=== PATIENT | male | born 1985 | race Caucasian/White ===

== ENCOUNTER 2016-07-14 18:06 | Inpatient (IN) | payer SELFPAY ==
[~2016-07-14] VITALS: Ht 182.9 cm; Wt 63.8 kg
[2016-07-14] VITALS (9 sets, daily range): BP systolic 99–141; BP diastolic 56–80; PULSE 64–106; RESP 14–18; TEMP 98.4; O2SAT 94–100
[~2016-07-14 18:06] MED LIST: BACT800T5 PO; CEPH500C3 PO
[2016-07-14] MEDS ORDERED: SODIUM CHLOR 0.9% 1000 ML INJ 1,000 ML IV ONE ×2 (18:12→18:45)
[2016-07-14] MEDS ORDERED: SODIUM CHLORIDE 0.9% FLUSH 5 ML FLUSH IVF PRN (18:15)
[2016-07-14] MEDS ORDERED: LORazepam 2 MG/ML VIAL ONE ×2 (18:19→18:22)
[2016-07-14] MEDS ORDERED: LORazepam 2 MG/ML VIAL IV PUSH ONE ×2 (18:30→19:15)
--- NOTE | 2016-07-14 18:34 | PD ---
HPI Chief Complaint: seizure Time Seen by Provider: 18:12 Travel History International Travel<30 days: No Contact w/Intl Traveler<30days: No History of Present Illness HPI Patient is a 30-year-old male who presents to emergency room with complaints of new onset seizure. As per EMS, patient was driving his car home from work, reports that he was in the car with his brother who was in the passenger seat. Reports that all of a sudden, patient became unresponsive and had a tonic- clonic seizure. Reports that his whole body stiffened up and symptoms lasted for about a minute. Patients brother was able to pull car over, there was no MVC after seizure. Patient denies history of seizures in the past. Patient reports that he works 16 hours days and drinks alot of energy drinks. Reports that he had 2 energy drinks today. No incontinence of urine during seizure. Denies use of drugs/alcohol. Denies brain injury. PFSH Past Medical History Medical History: Denies Significant Hx Past Surgical History Surgical History: No Previous Surgery Social History Alcohol Use: No Tobacco Use: Yes (1 PPD) Allergies-Medications (Allergen,Severity, Reaction): Coded Allergies: Penicillin (Verified Allergy, Mild, 07/14/16) *MDRO Multi-Drug Resistant Organism (Unverified Allergy, Unknown, 07/14/16) MRSA 2013 Reported Meds & Prescriptions Reported Meds & Active Scripts Active No Active Prescriptions or Reported Medications Review of Systems General / Constitutional: No: Fever Eyes: No: Visual changes HENT: No: Headaches Cardiovascular: No: Chest Pain or Discomfort Respiratory: No: Shortness of Breath Gastrointestinal: No: Abdominal Pain Genitourinary: No: Dysuria Musculoskeletal: No: Pain Skin: No Rash Neurologic: Positive: Seizures, No: Weakness Psychiatric: No: Depression Endocrine: No: Polydipsia Hematologic/Lymphatic: No: Easy Bruising Physical Exam Narrative GENERAL: nad SKIN: Warm and dry. HEAD: Atraumatic. Normocephalic. EYES: Pupils equal and round. No scleral icterus. No injection or drainage. ENT: No nasal bleeding or discharge. Mucous membranes pink and moist. NECK: Trachea midline. No JVD. CARDIOVASCULAR: Regular rate and rhythm. No murmur appreciated. RESPIRATORY: No accessory muscle use. Clear to auscultation. Breath sounds equal bilaterally. GASTROINTESTINAL: Abdomen soft, non-tender, nondistended. Hepatic and splenic margins not palpable. MUSCULOSKELETAL: No obvious deformities. No clubbing. No cyanosis. No edema. NEUROLOGICAL: Awake and alert. No obvious cranial nerve deficits. Motor grossly within normal limits. Normal speech. Cranial nerves to 12 grossly intact with no obvious deficits PSYCHIATRIC: Appropriate mood and affect; insight and judgment normal. Data Data Last Documented VS Vital Signs Date Time Temp Pulse Resp B/P Pulse Ox O2 Delivery O2 Flow Rate FiO2 07/14/16 20:13 85 16 112/63 94 Room Air 07/14/16 18:12 98.4 Orders Electrocardiogram (07/14/16 ) Complete Blood Count With Diff (07/14/16 18:12) Blood Glucose (07/14/16 18:12) Ecg Monitoring (07/14/16 18:12) Iv Access Insert/Monitor (07/14/16 18:12) Oximetry (07/14/16 18:12) Comprehensive Metabolic Panel (07/14/16 18:12) Sodium Chlor 0.9% 1000 Ml Inj (Ns 1000 M (07/14/16 18:12) Sodium Chloride 0.9% Flush (Ns Flush) (07/14/16 18:15) Ua Includes Microscopic (07/14/16 18:12) Drug Screen, Random Urine (07/14/16 18:12) Creatine Kinase (Cpk) (07/14/16 18:16) Lorazepam Inj (Ativan Inj) (07/14/16 18:19) Lorazepam Inj (Ativan Inj) (07/14/16 18:22) Ct Brain W/O Iv Contrast(Rout) (07/14/16 18:26) Lorazepam Inj (Ativan Inj) (07/14/16 18:30) Levetiracetam 1000 Mg Inj (Keppra 1000 M (07/14/16 18:45) Sodium Chlor 0.9% 1000 Ml Inj (Ns 1000 M (07/14/16 18:45) Lorazepam Inj (Ativan Inj) (07/14/16 19:15) Fosphenytoin Inj (Cerebyx Inj) (07/14/16 19:30) Dexamethasone Inj (Decadron Inj) (07/14/16 19:15) Admit To Inpatient (07/14/16 ) Code Status (07/14/16 19:27) Vital Signs (Adult) Q4H (2/8/17 19:27) Intake + Output 06,14,22 (07/14/16 19:27) Sodium Chlor 0.9% 1000 Ml Inj (Ns 1000 M (07/14/16 20:00) Sodium Chloride 0.9% Flush (Ns Flush) (07/14/16 21:00) Sodium Chloride 0.9% Flush (Ns Flush) (07/14/16 19:30) Pantoprazole Inj (Protonix Inj) (07/15/16 09:00) Basic Metabolic Panel (Bmp) (07/14/16 19:27) Prothrombin Time / Inr (Pt) (07/14/16 19:27) Act Partial Throm Time (Ptt) (07/14/16 19:27) Hepatic Functional Panel (07/14/16 19:27) Dimension Specification Inspector / Telemetry (07/14/16 19:27) Scd Bilateral/Knee High LAZARO.QSHIFT (07/14/16 19:27) Inpatient Certification (07/14/16 ) Mri Brain W&W/O Contrast (07/14/16 19:33) Phenytoin (Dilantin) (07/15/16 06:00) Basic Metabolic Panel (Bmp) (07/15/16 06:00) Magnesium (Mg) (07/15/16 06:00) Chest, Single Ap (07/14/16 ) Fosphenytoin Inj (Cerebyx Inj) (07/15/16 08:00) Dexamethasone Inj (Decadron Inj) (07/15/16 02:00) Admit Order (Ed Use Only) (07/14/16 21:24) Labs Laboratory Tests Test 07/14/16 07/14/16 07/14/16 18:37 20:08 20:47 White Blood Count 10.2 TH/MM3 Red Blood Count 4.34 MIL/MM3 Hemoglobin 13.5 GM/DL Hematocrit 38.9 % Mean Corpuscular Volume 89.6 FL Mean Corpuscular Hemoglobin 31.1 PG Mean Corpuscular Hemoglobin 34.7 % Concent Red Cell Distribution Width 11.9 % Platelet Count 278 TH/MM3 Mean Platelet Volume 8.3 FL Neutrophils (%) (Auto) 69.3 % Lymphocytes (%) (Auto) 20.2 % Monocytes (%) (Auto) 9.3 % Eosinophils (%) (Auto) 0.7 % Basophils (%) (Auto) 0.5 % Neutrophils # (Auto) 7.0 TH/MM3 Lymphocytes # (Auto) 2.1 TH/MM3 Monocytes # (Auto) 0.9 TH/MM3 Eosinophils # (Auto) 0.1 TH/MM3 Basophils # (Auto) 0.1 TH/MM3 CBC Comment DIFF FINAL Differential Comment Sodium Level 139 MEQ/L 138 MEQ/L Potassium Level 3.5 MEQ/L 5.1 MEQ/L Chloride Level 102 MEQ/L 104 MEQ/L Carbon Dioxide Level 30.5 MEQ/L 28.1 MEQ/L Anion Gap 7 MEQ/L 6 MEQ/L Blood Urea Nitrogen 13 MG/DL 14 MG/DL Creatinine 1.27 MG/DL 1.08 MG/DL Estimat Glomerular Filtration 67 ML/MIN 81 ML/MIN Rate Random Glucose 100 MG/DL 101 MG/DL Calcium Level 8.6 MG/DL 8.1 MG/DL Total Bilirubin 0.2 MG/DL 0.4 MG/DL Aspartate Amino Transf 15 U/L 36 U/L (AST/SGOT) Alanine Aminotransferase 21 U/L 24 U/L (ALT/SGPT) Alkaline Phosphatase 78 U/L 77 U/L Total Creatine Kinase 171 U/L Total Protein 6.5 GM/DL 6.6 GM/DL Albumin 3.2 GM/DL 3.1 GM/DL Urine Color YELLOW Urine Turbidity CLEAR Urine pH 6.0 Urine Specific [place] 1.025 Urine Protein TRACE mg/dL Urine Glucose (UA) NEG mg/dL Urine Ketones TRACE mg/dL Urine Occult Blood NEG Urine Nitrite NEG Urine Bilirubin NEG Urine Urobilinogen LESS THAN 2.0 MG/DL Urine Leukocyte Esterase NEG Urine RBC LESS THAN 1 /hpf Urine WBC 1 /hpf Urine Mucus FEW /lpf Urine Opiates Screen POS Urine Barbiturates Screen NEG Urine Amphetamines Screen POS Urine Benzodiazepines Screen NEG Urine Cocaine Screen POS Urine Cannabinoids Screen POS Prothrombin Time 11.3 SEC Prothromb Time International 1.0 RATIO Ratio Activated Partial 26.2 SEC Thromboplast Time Direct Bilirubin LESS THAN 0.1 MG/DL Indirect Bilirubin 0.3 MG/DL MDM Medical Decision Making Medical Screen Exam Complete: Yes Emergency Medical Condition: Yes Interpretation(s) EKG at 1813: Sinus tachycardia at 100 beats for minute, QT/QTc 326/[address] or T-wave changes Differential Diagnosis intracranial hemorrage, new onset seizure, electrolyte abnormality, hypoglycemia Narrative Course Patient is a 30-year-old male who presents to emergency room with complaints of new onset seizures. As per EMS, patient had a 1 minute tonic-clonic seizure while in his car today. Patient was postictal after seizure, there was no incontinence of urine. While in the emergency room, patient was alert 3 but was drowsy. Patient was placed on court monitor upon arrival to emergency room. CT of head ordered, CBC, BMP, EKG, Chest X-ray ordered. BS 118 I was called into the room as patient began to have another seizure. Patient had a tonic-clonic seizure which lasted about a minute. Patient was placed on a nonrebreather, 2 mg of IV Ativan was given to patient. Patient postictal after seizure activity. Will bolus patient with Keppra Pt signed out to Dr Cornejo at change of shift Scripts No Active Prescriptions or Reported Meds Flavia Low DO Jul 14, 2016 18:34
[2016-07-14] MEDS ORDERED: levETIRAcetam 1000 MG INJ 100 ML IV ONE (18:45)
[2016-07-14 18:51] LABS: BASOPHIL # 0.1 TH/MM3 (0-0.2); BASOPHIL % 0.5 % (0.0-2.0); EOSINOPHIL # 0.1 TH/MM3 (0-0.4); EOSINOPHIL % 0.7 % (0.0-4.0); HEMATOCRIT 38.9 % (39.0-51.0); HEMO FLAGS DIFF FINAL; LYMPH % 20.2 % (9.0-44.0); LYMPHOCYTE # 2.1 TH/MM3 (1.0-4.8); MEAN CELL VOLUME 89.6 FL (80.0-100.0); MEAN CORPUSCULAR HEMOGLOBIN 31.1 PG (27.0-34.0); MEAN CORPUSCULAR HGB CONC 34.7 % (32.0-36.0); MONO % 9.3 % (0.0-8.0); NEUT % 69.3 % (16.0-70.0); PLATELET COUNT 278 TH/MM3 (150-450); RED BLOOD COUNT 4.34 MIL/MM3 (4.50-5.90); RED CELL DISTRIBUTION WIDTH 11.9 % (11.6-17.2); WHITE BLOOD COUNT 10.2 TH/MM3 (4.0-11.0)
--- NOTE | 2016-07-14 19:07 | RADRPT ---
EXAM DATE/TIME: 07/14/2016 18:49 [facility] COMPARISON: No previous studies available for comparison. INDICATIONS : New onset grandmal seizure. RADIATION DOSE: 43.95 CTDIvol (mGy) MEDICAL HISTORY : None SURGICAL HISTORY : None. ENCOUNTER: Initial ACUITY: 1 day PAIN SCALE: Non-responsive LOCATION: cranial TECHNIQUE: Multiple contiguous axial images were obtained of the head. Using automated exposure control and adj ustment of the mA and/or kV according to patient size, radiation dose was kept as low as reasonably a chievable to obtain optimal diagnostic quality images. FINDINGS: There is a 6.2 x 4.8 cm lobulated mass in the right parietal region. Further evaluation with MRI is r ecommended. There is some effacement of the right lateral ventricle and about 6 mm of [id number]-[id number] m idline shift. No acute bony abnormality. There is opacification of the right maxillary sinus and mucosal thickening in the left maxillary sinus. CONCLUSION: 1. 6.2 cm mass in the right parietal region. Further evaluation with MRI of the brain with contrast r ecommended. There is mass effect and about 6 mm of [id number] midline shift. Cj Cali MD on July 14, 2016 at 19:03 Board Certified Radiologist. This report was verified electronically.
[2016-07-14 19:09] LABS: ANION GAP 7 MEQ/L (5-15); AST (GOT) 15 U/L (15-37); BICARBONATE 30.5 MEQ/L (21.0-32.0); BLOOD UREA NITROGEN 13 MG/DL (7-18); CHLORIDE 102 MEQ/L (98-107); GLOMERULAR FILTRATION RATE 67 ML/MIN (>89); POTASSIUM 3.5 MEQ/L (3.5-5.1); SODIUM (NA) 139 MEQ/L (136-145)
[2016-07-14 19:12] LABS: ALKALINE PHOSPHATASE 78 U/L (45-117); ALT (GPT) 21 U/L (12-78); TOTAL BILIRUBIN ADULT 0.2 MG/DL (0.2-1.0)
[2016-07-14] MEDS ORDERED: DEXAMETHASONE SOD PHOS 4 MG/ML VIAL IV PUSH ONE (19:15)
[2016-07-14] MEDS ORDERED: FOSPHENYTOIN INJ 1,000 MGPE in SODIUM CHLORIDE 0.9% INJ 50 ML IV ONE (19:30)
[2016-07-14] MEDS ORDERED: SODIUM CHLORIDE 0.9% FLUSH 5 ML FLUSH IV FLUSH PRN (19:30)
[2016-07-14] MEDS ORDERED: SODIUM CHLOR 0.9% 1000 ML INJ 1,000 ML IV SCH (20:00)
--- NOTE | 2016-07-14 20:06 | HHI.HP ---
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 His brother was a passenger and was able to stop the car. He has another seizure in the ED. CT showed a 6 cm mass with mass effect. He is now post ictal , arousable and protecting his airway. he would like to leave to go to work in the am. Review of Systems ROS Limitations: Altered Mental Status Constitutional: DENIES: Diaphoretic episodes, Fatigue, Fever, Weight gain, Weight loss, Chills, Dizziness, Change in appetite, Night Sweats Endocrine: DENIES: Heat/cold intolerance, Polydipsia, Polyuria, Polyphagia Eyes: DENIES: Blurred vision, Diplopia, Eye inflammation, Eye pain, Vision loss , Photosensitivity, Double Vision Ears, nose, mouth, throat: DENIES: Tinnitus, Hearing loss, Vertigo, Nasal discharge, Oral lesions, Throat pain, Hoarseness, Ear Pain, Running Nose, Epistaxis, Sinus Pain, Toothache, Odynophagia Respiratory: DENIES: Apneas, Cough, Snoring, Wheezing, Hemoptysis, Sputum production, Shortness of breath Gastrointestinal: DENIES: Abdominal pain, Black stools, Bloody stools, Constipation, Diarrhea, Nausea, Vomiting, Difficulty Swallowing, Anorexia Genitourinary: COMPLAINS OF: Urgency Musculoskeletal: DENIES: Joint pain, Muscle aches, Stiffness, Joint Swelling, Back pain, Neck pain Integumentary: DENIES: Abnormal pigmentation, Nail changes, Pruritus, Rash Immunologic/allergic: DENIES: Eczema, Urticaria Neurologic: COMPLAINS OF: Seizures Psychiatric: DENIES: Anxiety, Confusion, Mood changes, Depression, Hallucinations, Agitation, Suicidal Ideation, Homicidal Ideation, Delusions Past Family Social History Allergies: Coded Allergies: Penicillin (Verified Allergy, Mild, 07/14/16) *MDRO Multi-Drug Resistant Organism (Unverified Allergy, Unknown, 07/14/16) MRSA 2013 Past Medical History MRSA Reported Medications Reported Meds & Active Scripts Active No Active Prescriptions or Reported Medications Family History not known Social History 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, 2 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 drinks 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, 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 Physical Exam Vital Signs Vital Signs Date Time Temp Pulse Resp B/P Pulse Ox O2 Delivery O2 Flow Rate FiO2 07/14/16 19:17 92 14 114/57 100 07/14/16 18:27 105 18 131/78 97 Room Air 07/14/16 18:18 105 18 96 Room Air 07/14/16 18:17 96 Room Air 07/14/16 18:12 98.4 106 18 131/78 96 Physical Exam Arousable, pupils 3mm equal, EOMI, face symmetric, mild right facial numbness, no extenal evidence of trauma, Moves all extremities, no focal deficit but weaker in the left grasp 4/5 than in the right grasp 5/5 Tone generally increased after the seizure, but no Denney sign, no Babinski Abd NT positive BS, no rashes, clubbing or edema RRR, lungs CTA Laboratory Laboratory Tests Test 07/14/16 18:37 White Blood Count 10.2 Red Blood Count 4.34 Hemoglobin 13.5 Hematocrit 38.9 Mean Corpuscular Volume 89.6 Mean Corpuscular Hemoglobin 31.1 Mean Corpuscular Hemoglobin 34.7 Concent Red Cell Distribution Width 11.9 Platelet Count 278 Mean Platelet Volume 8.3 Neutrophils (%) (Auto) 69.3 Lymphocytes (%) (Auto) 20.2 Monocytes (%) (Auto) 9.3 Eosinophils (%) (Auto) 0.7 Basophils (%) (Auto) 0.5 Neutrophils # (Auto) 7.0 Lymphocytes # (Auto) 2.1 Monocytes # (Auto) 0.9 Eosinophils # (Auto) 0.1 Basophils # (Auto) 0.1 CBC Comment DIFF FINAL Differential Comment Sodium Level 139 Potassium Level 3.5 Chloride Level 102 Carbon Dioxide Level 30.5 Anion Gap 7 Blood Urea Nitrogen 13 Creatinine 1.27 Estimat Glomerular Filtration 67 Rate Random Glucose 100 Calcium Level 8.6 Total Bilirubin 0.2 Aspartate Amino Transf 15 (AST/SGOT) Alanine Aminotransferase 21 (ALT/SGPT) Alkaline Phosphatase 78 Total Creatine Kinase 171 Total Protein 6.5 Albumin 3.2 Result Diagram: 07/14/16183607/14/161836 Imaging Last Impressions Head CT 07/14/161825 Signed Impressions: Service Date/Time: Thursday, July 14, 2016 18:49 - CONCLUSION: 1. 6.2 cm mass in the right parietal region. Further evaluation with MRI of the brain with contrast recommended. There is mass effect and about 6 mm of mfzed-fb-rfni midline shift. Cj Cali MD Assessment and Plan Diagnosis: (1) Neoplasm of brain causing mass effect on adjacent structures Plan: MRI of the brain is pending ICD Code: D49.6 (2) Seizure Plan: Cerebryx was given in the ED and will be continued ICD Code: R56.9 Assessment and Plan DVT and PUD prophylaxis will be provided. He will be admitted for work up and treatment of the brain mass. Zachery Jerome Jul 14, 2016 20:06
[2016-07-14 20:32] LABS: BLOOD, URINE NEG (NEG); GLUCOSE,URINE NEG (NEG); KETONE, URINE TRACE mg/dL (NEG); MUCUS URINE FEW /lpf (OCC); NITRITE,URINE NEG (NEG); URINE COLOR YELLOW (YELLW/STRAW)
[2016-07-14 20:51] LABS: AMPHETAMINE, URINE POS (NEG); BARBITURATES, URINE NEG (NEG); COCAINE, URINE POS (NEG)
--- NOTE | 2016-07-14 21:02 | RADRPT ---
EXAM DATE/TIME: 07/14/2016 18:14 [facility] COMPARISON: No previous studies available for comparison. INDICATIONS : Seizure. MEDICAL HISTORY : Unobtainable. SURGICAL HISTORY : Unobtainable. ENCOUNTER: Initial ACUITY: 1 day PAIN SCORE: Non-responsive. LOCATION: chest FINDINGS: A single view of the chest demonstrates the lungs to be symmetrically aerated without evidence of mas s, infiltrate or effusion. The cardiomediastinal contours are unremarkable. Osseous structures are intact. CONCLUSION: No acute disease. Cj Cali MD on July 14, 2016 at 20:56 Board Certified Radiologist. This report was verified electronically.
[2016-07-14] MEDS ORDERED: GADODIAMIDE PF 287 MG/ML 5 ML VIAL (for RAD MRI) IV ONE (21:30)
[2016-07-14 21:31] LABS: APTT (PATIENT) 26.2 SEC (24.3-30.1); PROTHROMBIN TIME - PATIENT 11.3 SEC (9.8-11.6)
[2016-07-14 21:50] LABS: ALKALINE PHOSPHATASE 77 U/L (45-117); ALT (GPT) 24 U/L (12-78); ANION GAP 6 MEQ/L (5-15); AST (GOT) 36 U/L (15-37); BICARBONATE 28.1 MEQ/L (21.0-32.0); BLOOD UREA NITROGEN 14 MG/DL (7-18); CHLORIDE 104 MEQ/L (98-107); GLOMERULAR FILTRATION RATE 81 ML/MIN (>89); INDIRECT BILIRUBIN 0.3 MG/DL (0.0-0.8); SODIUM (NA) 138 MEQ/L (136-145); TOTAL BILIRUBIN ADULT 0.4 MG/DL (0.2-1.0)
[2016-07-14 21:54] LABS: POTASSIUM 5.1 MEQ/L (3.5-5.1)
--- NOTE | 2016-07-14 22:27 | RADRPT ---
EXAM DATE/TIME: 07/14/2016 21:15 [facility] COMPARISON: No previous studies available for comparison. INDICATIONS : Mass. CONTRAST: 14 cc Omniscan (gadodiamide) IV MEDICAL HISTORY : None. SURGICAL HISTORY : None. ENCOUNTER: Initial ACUITY: 1 day PAIN SCORE: Nonresponsive. LOCATION: cranial TECHNIQUE: Multiplanar, multisequence MRI of the brain was performed both prior to and following the administrat ion of paramagnetic contrast. FINDINGS: There is an enhancing extra-axial mass in the right parietal region measuring up to 6.5 x 5.3 x 4.5 c m. There is some associated dural enhancement adjacent to the mass. Mass is lobulated in appearance a nd compresses the surrounding brain parenchyma. There is about 5 mm of [id number] midline shift. N o other abnormal enhancing lesions are seen in the brain. No recent infarct and no hydrocephalus. CONCLUSION: 1. Enhancing lobulated extra-axial mass in the right parietal region most characteristic of a meningi warren. Measurements given above. There is associated mass effect and around 5 mm of tftbf-sb-[id number] midli ne shift. Cj Cali MD on July 14, 2016 at 22:21 Board Certified Radiologist. This report was verified electronically.
[2016-07-14] MEDS: SODIUM CHLORIDE 0.9% FLUSH 5 ML FLUSH IV FLUSH SCH (23:20)
[2016-07-15] VITALS (9 sets, daily range): BP systolic 102–127; BP diastolic 54–71; PULSE 83–100; RESP 12–27; TEMP 97.7–98.5; O2SAT 92–98
[2016-07-15] MEDS ORDERED: CHLORHEXIDINE GLUCONATE 2 % 1 PACK (2 CLOTHS)(extra cloths) TOP PRN (00:45)
[2016-07-15] MEDS: CHLORHEXIDINE GLUCONATE 2 % 1 PACK (2 CLOTHS)(taper/protocol) TOP SCH (01:56)
[2016-07-15] MEDS ORDERED: DEXAMETHASONE SOD PHOS 4 MG/ML VIAL IV PUSH SCH (02:00)
--- NOTE | 2016-07-15 05:01 | EKG ---
Date Performed: 07/14/2016 Time Performed: 18:13:23 PTAGE: 30 years EKG: SINUS TACHYCARDIA NONSPECIFIC T-WAVE ABNORMALITY ABNORMAL RHYTHM ECG NO PREVIOUS TRACING DOCTOR: Rito Noland Interpretating Date/Time 07/15/2016 04:59:30
[2016-07-15 06:15] LABS: BICARBONATE 23.7 MEQ/L (21.0-32.0); MAGNESIUM 2.1 MG/DL (1.5-2.5); POTASSIUM 3.8 MEQ/L (3.5-5.1)
--- NOTE | 2016-07-15 08:01 | HHI.NSPN ---
Subjective History 30 yr old was admitted with 2 seizures and found to have a large right parietal mass. He is avoidant and asking to leave. His tox screen showed cocaine and poly substance abuse. Vitals . Vital Signs Date Time Temp Pulse Resp B/P Pulse Ox O2 Delivery O2 Flow Rate FiO2 07/15/16 04:00 98.0 87 24 120/69 92 07/15/16 00:24 97.9 90 16 120/69 97 07/15/16 00:00 98.4 89 25 102/59 96 07/15/16 00:00 89 07/14/16 23:34 64 16 141/80 99 Room Air 07/14/16 23:00 87 16 99/60 96 Nasal Cannula 2 07/14/16 22:53 91 16 114/56 94 Nasal Cannula 2 07/14/16 21:46 83 16 116/73 97 Nasal Cannula 2 07/14/16 20:13 85 16 112/63 94 Room Air 07/14/16 19:17 92 14 114/57 100 07/14/16 18:27 105 18 131/78 97 Room Air 07/14/16 18:18 105 18 96 Room Air 07/14/16 18:17 96 Room Air 07/14/16 18:12 98.4 106 18 131/78 96 07/14/16 07/14/16 07/15/16 15:00 23:00 07:00 Intake Total 605 ml Output Total 900 ml Balance -295 ml Physical Exam Head Head: Atraumatic Eyes Eyes: Pupils Equal Neuro Mental Status: Lethargic Pupils: Reactive Bilaterally Face: Symmetric Speech: Clear Mahaffey Coma Scale Best Eye Openin - Spontaneous Best Motor: 5 - Localizes pain Sensation: Intact Cardiac Cardiac: Regular Rate & Rhythm Gastrointestinal Gastrointestinal: Soft Musculoskeletal Musculoskeletal: Moves all extrem with 5/5 strength Extremities Upper Extremities Deltoid Bicep Tricep HI W. Ext Right Left Lower Extremeties Ilio Quad Plantar Dorsi EHL Right Left Dermatologic Dermatologic: Skin Intact Extremities Edema: No Edema Objective Labs Laboratory Tests 07/14/16 18:37 07/14/16 20:47 07/15/16 04:32 Laboratory Tests Test 07/14/16 07/14/16 07/15/16 18:37 20:47 04:32 Sodium Level 139 MEQ/L 138 MEQ/L 139 MEQ/L Potassium Level 3.5 MEQ/L 5.1 MEQ/L 3.8 MEQ/L Chloride Level 102 MEQ/L 104 MEQ/L 105 MEQ/L Carbon Dioxide Level 30.5 MEQ/L 28.1 MEQ/L 23.7 MEQ/L Anion Gap 7 MEQ/L 6 MEQ/L 10 MEQ/L Blood Urea Nitrogen 13 MG/DL 14 MG/DL 12 MG/DL Creatinine 1.27 MG/DL 1.08 MG/DL 0.90 MG/DL Estimat Glomerular Filtration 67 ML/MIN 81 ML/MIN 100 ML/MIN Rate Random Glucose 100 MG/DL 101 MG/DL 118 MG/DL Calcium Level 8.6 MG/DL 8.1 MG/DL 9.1 MG/DL Total Bilirubin 0.2 MG/DL 0.4 MG/DL Aspartate Amino Transf 15 U/L 36 U/L (AST/SGOT) Alanine Aminotransferase 21 U/L 24 U/L (ALT/SGPT) Alkaline Phosphatase 78 U/L 77 U/L Total Creatine Kinase 171 U/L Total Protein 6.5 GM/DL 6.6 GM/DL Albumin 3.2 GM/DL 3.1 GM/DL Direct Bilirubin LESS THAN 0.1 MG/DL Indirect Bilirubin 0.3 MG/DL Magnesium Level 2.1 MG/DL Laboratory Tests Test 07/14/16 07/15/16 20:08 04:32 Urine Opiates Screen POS Urine Barbiturates Screen NEG Urine Amphetamines Screen POS Urine Benzodiazepines Screen NEG Urine Cocaine Screen POS Urine Cannabinoids Screen POS Phenytoin (Dilantin) Level 13.9 MCG/ML Imaging Remarks Last Impressions Brain MRI 07/14/16 1933 Signed Impressions: Service Date/Time: Thursday, July 14, 2016 21:15 - CONCLUSION: 1. Enhancing lobulated extra-axial mass in the right parietal region most characteristic of a meningioma. Measurements given above. There is associated mass effect and around 5 mm of [id number]-[id number] midline shift. Cj Cali MD Head CT 07/14/161825 Signed Impressions: Service Date/Time: Thursday, July 14, 2016 18:49 - CONCLUSION: 1. 6.2 cm mass in the right parietal region. Further evaluation with MRI of the brain with contrast recommended. There is mass effect and about 6 mm of agqed-up-kimr midline shift. Cj Cali MD Chest X-Ray 07/14/16 0000 Signed Impressions: Service Date/Time: Thursday, July 14, 2016 18:14 - CONCLUSION: No acute disease. Cj Cali MD Assessment & Plan Diagnosis: (1) Neoplasm of brain causing mass effect on adjacent structures Plan: MRI of the brain shows a large extra axial mass. Resection is recommended (2) Seizure Plan: Cerebryx was given in the ED and will be continued (3) Polysubstance abuse Plan: Surgery is on hold because of the patient refusing to discuss the brain mass. He appears to be disinhibited as well. A psychiatry consult is pending. Zachery Jerome Jul 15, 2016 08:00
[2016-07-15] MEDS: DEXAMETHASONE SOD PHOS 4 MG/ML VIAL IV PUSH SCH ×2 (10:57→20:41)
[2016-07-15] MEDS: FOSPHENYTOIN SODIUM 100 MG PE/2 ML VIAL IV SCH ×2 (10:57→20:41)
[2016-07-15] MEDS: PANTOPRAZOLE SODIUM 40 MG VIAL IV SCH (10:58)
[2016-07-15] MEDS: SODIUM CHLORIDE 0.9% FLUSH 5 ML FLUSH IV FLUSH SCH ×2 (10:59→20:42)
--- NOTE | 2016-07-15 13:30 | PD.CONS ---
Consult Service Palliative Care . Consult Requested By Dr. Rivera . Primary Care Physician Unknown . Reason for Consultation a. To assist with evaluation and management of symptoms including: agitation , pain. b. To assist medical decision maker(s) with: better understanding of current medical conditions; weighing benefits/burdens of medical treatment options; making medical treatment decisions. . HPI History of Present Illness Mr. Dunn is a 30 year old male with past medical history of MRSA in elbow wound 2013 and possible polysubstance abuse. He presented to emergency room on 07/14/16 with new onset seizure. He was driving home from work where his brother was the passenger. Suddenly the patient became unresponsive and had a tonic-clonic seizure. Brother reported his whole body stiffened for about 1 minute, no incontinence. The brother was able to pull the care over safely. evaluation revealed: * WBC 10.2, hemoglobin 13.5, hematocrit 38.9, platelets 278. * Sodium 139, potassium 3.5, BUN 13, Creatinine 1.27, GFR 67, glucose 100 * T. Bili 0.2, AST 15, ALT 21, Alk phos 78 * total creatine kinase 171 * total protein 6.5, albumin 3.2 * PT 11.3, INR 1.0, APTT 26.2 * Toxicology positive opiates, amphetamines, cocaine and cannabinoids. * Urine negative. * MRSA nasal screen negative * CXR - no acute disease * CT head 6.2 cm mass in right parietal region. * MRI brain - enhancing lobulated extra-axial mass in right parietal region most characteristic of a meningioma with mass effect and midline shift. Patient was given Ativan and Keppra. Neurosurgery, Dr. Jerome was consulted who recommends surgical resection. Patient has been refusing to discuss the mass and wants to leave the hospital. Psychiatry was consulted for polysubstance abuse and to determine capacity. Palliative care was consulted to assist with further calcification of treatment goals. . Review of Systems ROS Limitations: Other (poor dentition) Constitutional: COMPLAINS OF: Fatigue, Generalized weakness Hematologic/Lymphatics: COMPLAINS OF: Bruising Neurologic: COMPLAINS OF: Seizures Psychiatric: COMPLAINS OF: Agitation Other ROS: pt does not want to answer questions, difficult to obtain ROS. ROS per what he would answer, family report and EMR review. Past Family Social History Coded Allergies: Penicillin (Verified Allergy, Mild, 07/14/16) *MDRO Multi-Drug Resistant Organism (Unverified Allergy, Unknown, 07/14/16) MRSA 2013 Past Medical History MRSA elbow wound 2013 Polysubstance abuse . Past Surgical History Father unaware of any surgeries. . Reported Medications No known prescribed meds. . Current Medications Medications (Trade) Dose Ordered Sig/Cliff Route Start Time Stop Time Status Last Admin (NS Flush) 2 ml BID IV FLUSH 07/14/16 21:00 07/15/16 10:59 (NS Flush) 2 ml UNSCH PRN IV FLUSH 07/14/16 19:30 (Protonix Inj) 40 mg DAILY IV 07/15/16 09:00 07/15/16 10:58 (Cerebyx Inj) 200 mgpe Q12H IV 07/15/16 08:00 07/15/16 10:57 Miscellaneous Information Patient in critical care unit? Ass... Q361D XX 07/15/16 00:45 (Chlorhexidine 2% Cloth) 3 pack DAILY@04 TOP 07/15/16 04:00 07/19/16 04:01 07/15/16 01:56 (Chlorhexidine 2% Cloth) 3 pack UNSCH PRN TOP 07/15/16 00:45 07/20/16 00:37 (Decadron Inj) 4 mg BID IV PUSH 07/15/16 09:00 07/15/16 10:57 . Family History Father with CAD. Mother questionable history of uterine cancer. Parents both alive. . Substance Use Tobacco: Smokes 1 PPD. Alcohol: unknown. Prescription/ Illicits abuse: Tox screen positive opiates, cocaine, cannabinoids and amphetamines. Father reports meth use, crushing meds ( hydrocodone and ? others) and injecting them into his veins. Not sure what else , not sure if he has ever used heroine. . . Psychosocial History Single. No children. Parents alive. Father, Pb lives in [place]. Mother lives in [facility] last father knew. No contact information for mother. [employer] did not find a number for mother. Has 1 brother, Jm and 1 sister , Flavia. History of drug abuse. 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 . Spiritual/Cultural Factors Unknown. . Living Will: Never completed Health Care Surrogate: Never completed Durable Power of Form Setter: Never completed Health Care Surrogate(s): No written advanced directives. Single. No children. Parents alive, no contact information for mother (per family or [employer]TS). Has 1 brother and 1 sister. According to [place] statutes, health care proxy decision making falls to a parent. FatherPb is willing to serve as health care proxy decision maker. . Today's verbally stated goals: Pt not answering my questions. . Family/friends goals: Family meeting arranged 07/16/16 between 11:30-12n. . Ethical and Legal Issues No written advanced directives. Single. No children. Parents alive, no contact information for mother (per family or [employer]TS). Has 1 brother and 1 sister. According to [place] statutes, health care proxy decision making falls to a parent. FatherPb is willing to serve as health care proxy decision maker. . Physical Exam Vital Signs Date Time Temp Pulse Resp B/P Pulse Ox O2 Delivery O2 Flow Rate FiO2 07/15/16 04:00 98.0 87 24 120/69 92 07/15/16 00:24 97.9 90 16 120/69 97 07/15/16 00:00 98.4 89 25 102/59 96 07/15/16 00:00 89 07/14/16 23:34 64 16 141/80 99 Room Air 07/14/16 23:00 87 16 99/60 96 Nasal Cannula 2 07/14/16 22:53 91 16 114/56 94 Nasal Cannula 2 07/14/16 21:46 83 16 116/73 97 Nasal Cannula 2 07/14/16 20:13 85 16 112/63 94 Room Air 07/14/16 19:17 92 14 114/57 100 07/14/16 18:27 105 18 131/78 97 Room Air 07/14/16 18:18 105 18 96 Room Air 07/14/16 18:17 96 Room Air 07/14/16 18:12 98.4 106 18 131/78 96 07/14/16 07/15/16 19:00 07:00 Intake Total 605 ml Output Total 900 ml Balance -295 ml Intake IV Total 605 ml Output Urine Total 900 ml Stool Total 0 ml Exam CONSTITUTIONAL/GENERAL: This is thin, young man, in no apparent distress. TUBES/LINES/DRAINS: PIV. SKIN: No jaundice, rashes, or lesions. Ecchymoses on upper extremities. No wounds seen anteriorly. Skin temperature appropriate. Not diaphoretic. HEAD: Atraumatic. Normocephalic. EYES: Eyes closed. ENT: Hearing grossly normal. Nose without bleeding or purulent drainage. Poor dentition. NECK: Trachea midline. CARDIOVASCULAR: Regular rate and rhythm without murmurs, gallops, or rubs. No JVD. Peripheral pulses symmetric. RESPIRATORY/CHEST: Symmetric, unlabored respirations. Clear to auscultation. Breath sounds equal bilaterally. No wheezes, rales, or rhonchi. GASTROINTESTINAL: Abdomen soft, non-tender, nondistended. No guarding. Bowel sounds present. GENITOURINARY: Without palpable bladder distension. Condom cath in place. MUSCULOSKELETAL: Extremities without clubbing, cyanosis, or edema. LYMPHATICS: No palpable cervical or supraclavicular adenopathy. NEUROLOGICAL: Arouses briefly, falls of to sleep. He answers a few questions, does not answer most. Does not want to talk to me. He does not open eyes when he speaks. Moves all extremities. PSYCHIATRIC: Agitated easily. . Diagnostic Tests Laboratory Laboratory Tests Test 07/14/16 07/14/16 07/14/16 07/15/16 18:37 20:08 20:47 01:15 White Blood Count 10.2 TH/MM3 (4.0-11.0) Red Blood Count 4.34 MIL/MM3 (4.50-5.90) Hemoglobin 13.5 GM/DL (13.0-17.0) Hematocrit 38.9 % (39.0-51.0) Mean Corpuscular Volume 89.6 FL (80.0-100.0) Mean Corpuscular Hemoglobin 31.1 PG (27.0-34.0) Mean Corpuscular Hemoglobin 34.7 % Concent (32.0-36.0) Red Cell Distribution Width 11.9 % (11.6-17.2) Platelet Count 278 TH/MM3 (150-450) Mean Platelet Volume 8.3 FL (7.0-11.0) Neutrophils (%) (Auto) 69.3 % (16.0-70.0) Lymphocytes (%) (Auto) 20.2 % (9.0-44.0) Monocytes (%) (Auto) 9.3 % (0.0-8.0) Eosinophils (%) (Auto) 0.7 % (0.0-4.0) Basophils (%) (Auto) 0.5 % (0.0-2.0) Neutrophils # (Auto) 7.0 TH/MM3 (1.8-7.7) Lymphocytes # (Auto) 2.1 TH/MM3 (1.0-4.8) Monocytes # (Auto) 0.9 TH/MM3 (0-0.9) Eosinophils # (Auto) 0.1 TH/MM3 (0-0.4) Basophils # (Auto) 0.1 TH/MM3 (0-0.2) CBC Comment DIFF FINAL Differential Comment Sodium Level 139 MEQ/L 138 MEQ/L (136-145) (136-145) Potassium Level 3.5 MEQ/L 5.1 MEQ/L (3.5-5.1) (3.5-5.1) Chloride Level 102 MEQ/L 104 MEQ/L (98-107) (98-107) Carbon Dioxide Level 30.5 MEQ/L 28.1 MEQ/L (21.0-32.0) (21.0-32.0) Anion Gap 7 MEQ/L (5-15) 6 MEQ/L (5-15) Blood Urea Nitrogen 13 MG/DL (7-18) 14 MG/DL (7-18) Creatinine 1.27 MG/DL 1.08 MG/DL (0.60-1.30) (0.60-1.30) Estimat Glomerular Filtration 67 ML/MIN (>89) 81 ML/MIN (>89) Rate Random Glucose 100 MG/DL 101 MG/DL (74-106) (74-106) Calcium Level 8.6 MG/DL 8.1 MG/DL (8.5-10.1) (8.5-10.1) Total Bilirubin 0.2 MG/DL 0.4 MG/DL (0.2-1.0) (0.2-1.0) Aspartate Amino Transf 15 U/L (15-37) 36 U/L (15-37) (AST/SGOT) Alanine Aminotransferase 21 U/L (12-78) 24 U/L (12-78) (ALT/SGPT) Alkaline Phosphatase 78 U/L (45-117) 77 U/L (45-117) Total Creatine Kinase 171 U/L (39-308) Total Protein 6.5 GM/DL 6.6 GM/DL (6.4-8.2) (6.4-8.2) Albumin 3.2 GM/DL 3.1 GM/DL (3.4-5.0) (3.4-5.0) Urine Color YELLOW (YELLW/STRAW) Urine Turbidity CLEAR (CLEAR) Urine pH 6.0 (5.0-8.5) Urine Specific [place] 1.025 (1.002-1.035) Urine Protein TRACE mg/dL (NEG-TRACE) Urine Glucose (UA) NEG mg/dL (NEG) Urine Ketones TRACE mg/dL (NEG) Urine Occult Blood NEG (NEG) Urine Nitrite NEG (NEG) Urine Bilirubin NEG (NEG) Urine Urobilinogen LESS THAN 2.0 MG/DL (LESS THAN 2.0) Urine Leukocyte Esterase NEG (NEG) Urine RBC LESS THAN 1 /hpf (0-3) Urine WBC 1 /hpf (0-5) Urine Mucus FEW /lpf (OCC) Urine Opiates Screen POS (NEG) Urine Barbiturates Screen NEG (NEG) Urine Amphetamines Screen POS (NEG) Urine Benzodiazepines Screen NEG (NEG) Urine Cocaine Screen POS (NEG) Urine Cannabinoids Screen POS (NEG) Prothrombin Time 11.3 SEC (9.8-11.6) Prothromb Time International 1.0 RATIO Ratio Activated Partial 26.2 SEC Thromboplast Time (24.3-30.1) Direct Bilirubin LESS THAN 0.1 MG/DL (0.0-0.2) Indirect Bilirubin 0.3 MG/DL (0.0-0.8) Nasal Screen MRSA (PCR) NEGATIVE (NEGATIVE) Test 07/15/16 04:32 Sodium Level 139 MEQ/L (136-145) Potassium Level 3.8 MEQ/L (3.5-5.1) Chloride Level 105 MEQ/L (98-107) Carbon Dioxide Level 23.7 MEQ/L (21.0-32.0) Anion Gap 10 MEQ/L (5-15) Blood Urea Nitrogen 12 MG/DL (7-18) Creatinine 0.90 MG/DL (0.60-1.30) Estimat Glomerular Filtration 100 ML/MIN Rate (>89) Random Glucose 118 MG/DL (74-106) Calcium Level 9.1 MG/DL (8.5-10.1) Magnesium Level 2.1 MG/DL (1.5-2.5) Phenytoin (Dilantin) Level 13.9 MCG/ML (10.0-20.0) Result Diagram: 07/14/167 07/15/16 0432 Imaging Last Impressions Brain MRI 07/14/16 1933 Signed Impressions: Service Date/Time: Thursday, July 14, 2016 21:15 - CONCLUSION: 1. Enhancing lobulated extra-axial mass in the right parietal region most characteristic of a meningioma. Measurements given above. There is associated mass effect and around 5 mm of [id number] midline shift. Cj Cali MD Head CT 07/14/16 1826 Signed Impressions: Service Date/Time: Thursday, July 14, 2016 18:49 - CONCLUSION: 1. 6.2 cm mass in the right parietal region. Further evaluation with MRI of the brain with contrast recommended. There is mass effect and about 6 mm of [id number] midline shift. Cj Cali MD Chest X-Ray 07/14/16 0000 Signed Impressions: Service Date/Time: Thursday, July 14, 2016 18:14 - CONCLUSION: No acute disease. Cj Cali MD . Patient/Family Conference Present at Family Conference: Spoke with father via telephone. . Family Conference Time (mins): 20 Family Conference Location: Telephone Issues Discussed: * Palliative care role, purpose, approach * Additional medical, psychosocial, and spiritual history * Patients general health, functional status, and cognitive changes in the months leading up to the current hospitalization * Reviewed need for resection of brain mass. * Questions answered to the best of my ability * Palliative care contact information provided Family meeting arranged with Palliative care and neurosurgery 07/16/16 11:30pm. . Assessment and Plan Disease Oriented Problem List: (1) Polysubstance abuse (2) Neoplasm of brain causing mass effect on adjacent structures (3) Seizure Symptom Scale: (1) Seizure 0-10 Scale: Unable to quantify (2) Agitation 0-10 Scale: Unable to quantify Comment: pt refuses to engage in conversation during my visit. Pertinent Non-Medical Issues Psychosocial:Single. Spiritual:Unknown. Legal: According to [place] statutes, health care proxy decision making falls to parent. Ethical issues impacting care: No known concerns at this time. . Important Contacts * Pb Dunn, father/HCP: [phone] * Jm Dunn, brother: [phone] * Anastacia Gloria, grandmother: [phone] * Flavia Dunn, sister: no contact information. * Milena Dunn, mother: No contact information per family or [employer] search, old number disconnected. . Prognosis Per neurosurgery he should do well with resection of brain mass. . Code Status: Full Code Plan * No written advanced directives. Single. No children. Parents alive, no contact information for mother (per family or [employer]INTS). Has 1 brother and 1 sister. According to [place] statutes, health care proxy decision making falls to a parent. Father, Pb Dunn is willing to serve as health care proxy decision maker. His number is [phone]. * FULL CODE * Spoke with fatherPb via telephone. He is willing to serve as HCP. Medical update provided. Advised patient is not engaging in conversation. Father is not aware of any additional medical problems, surgeries or other allergies. Explained resection of mass is recommended and that hopefully pt will engage in conversation, otherwise father may need to make these decisions. Family meeting arranged 07/16/16 between 11:30-12n. * Discussed with Dr. Jerome, Dr. Rivera and nursing staff. Dr. Jerome will plan to attend family meeting tomorrow. * SYMPTOMS: Seizure: On Cerebyx and Decadron. Pain: denies. Agitation: Patient does not want to engage in conversation. concern for possible withdrawal due to positive toxicology. PRN Haldol available. * Palliative care number provided. * Palliative care will continue to follow throughout hospital course to assist with symptom management and further clarification of treatment goals. . Thank you for the opportunity to participate in the care of Mr. Dunn. Attestation To help prompt me to consider important information that might be impacting today's encounter and assessment, information from prior notes written by myself or my colleagues may have been "brought forward" into today's note. My signature on this note, however, is an attestation that I personally performed the exam, history, and/or decision-making noted today, and, unless otherwise indicated, the interactions with patient, family, and staff as well as the review of records all occurred today. I also attest that the listed assessment and stated plan reflect my best clinical judgment today based on the combination of historical information, prior notes, and today's exam/ interactions. When time spent is documented, it refers only to time spent today by the signer, or if indicated, combined time spent today by collaborating physician/nurse practitioner. ADITI BALES Jul 15, 2016 13:30
--- NOTE | 2016-07-15 14:53 | PD.CONS ---
Provisional Diagnosis Admission Date Jul 14, 2016 at 21:25 History of Present Illness Service Psychiatry Consult Requested By Primary Care Physician Unknown HPI Patient refuses to speak with psychiatry team. However, he did say that he wants to continue and follow medical recommendations. Other than that, patient was selectively mute for our questions. Past Family Social History Coded Allergies: Penicillin (Verified Allergy, Mild, 07/14/16) *MDRO Multi-Drug Resistant Organism (Unverified Allergy, Unknown, 07/14/16) MRSA 2013 No Active Prescriptions or Reported Meds Current Medications Medications (Trade) Dose Ordered Sig/Cliff Route Start Time Stop Time Status Last Admin (NS Flush) 2 ml BID IV FLUSH 07/14/16 21:00 07/15/16 10:59 (NS Flush) 2 ml UNSCH PRN IV FLUSH 07/14/16 19:30 (Protonix Inj) 40 mg DAILY IV 07/15/16 09:00 07/15/16 10:58 (Cerebyx Inj) 200 mgpe Q12H IV 07/15/16 08:00 07/15/16 10:57 Miscellaneous Information Patient in critical care unit? Ass... Q361D XX 07/15/16 00:45 (Chlorhexidine 2% Cloth) 3 pack DAILY@04 TOP 07/15/16 04:00 07/19/16 04:01 07/15/16 01:56 (Chlorhexidine 2% Cloth) 3 pack UNSCH PRN TOP 07/15/16 00:45 07/20/16 00:37 (Decadron Inj) 4 mg BID IV PUSH 07/15/16 09:00 07/15/16 10:57 Physical Exam Vital Signs Vital Signs Date Time Temp Pulse Resp B/P Pulse Ox O2 Delivery O2 Flow Rate FiO2 07/15/16 12:00 98.5 83 12 127/71 97 07/14/16 23:34 Room Air 07/14/16 23:00 2 Assessment & Plan Problem List: (1) Neoplasm of brain causing mass effect on adjacent structures Assessment & Plan: Patient refuses to cooperate with psychiatry. He is selectively mute. He just opened his mouth to say that he will follow the medical recommendations. If patient is agreeing to follow medical recommendations, decision-making capacity assessment is not applicable. However, if the patient continues to be selectively mute and is unable to express a clear choice, understanding, appreciation and a rational explanation of his medical condition and reasons for his decision, he must be deemed non- capacitated to take medical decision and a healthcare by proxy should be appointed. Consult palliative care for goals of care, prognosis, qualification for hospice , family meeting and to help with healthcare by proxy. If you have any question please contact me directly to my personal phone [phone], thanks!! ICD Code: D49.6 Assessment & Plan Estimated LOS: days Danilo Gongora MD Jul 15, 2016 14:53
[2016-07-15] MEDS ORDERED: HALOPERIDOL LACTATE 5 MG/ML AMP IM PRN (15:30)
--- NOTE | 2016-07-15 15:44 | PD.CONS ---
HPI Service [facility] Consult Requested By Dr. Jerome Reason for Consult Medical care with history of drug use Primary Care Physician Unknown Diagnoses: (1) Seizure (2) Neoplasm of brain causing mass effect on adjacent structures (3) Polysubstance abuse History of Present Illness The patient is a 30-year-old male who is currently admitted to the intensive care unit under the neurosurgery service. He does not provide any history. Review of the electronic record shows that the patient presented following a new onset seizure. Apparently the patient was driving home from work and had a tonic-clonic seizure. This was witnessed by his brother who was in the passenger seat. Symptoms apparently lasted for about a minute. Patient's brother was able to pull the car over to the side of the road and there was no collision. Again the patient does not provide any history and does not answer any of my questions. The ER documentation indicates that the patient stated that he works 16 hour days and drinks a lot of energy drinks. He was found on imaging to have a large parietal mass. He did have another seizure in the ER. Review of Systems ROS Limitations: Uncooperative Past Family Social History Allergies: Coded Allergies: Penicillin (Verified Allergy, Mild, 07/14/16) *MDRO Multi-Drug Resistant Organism (Unverified Allergy, Unknown, 07/14/16) MRSA 2014 Past Medical History Unobtainable Past Surgical History Unobtainable Reported Medications Unobtainable Family History Unobtainable Social History Unobtainable. Urine drug screen is positive for opiates, amphetamines, cocaine, and cannabinoids. Physical Exam Vital Signs Vital Signs Date Time Temp Pulse Resp B/P Pulse Ox O2 Delivery O2 Flow Rate FiO2 07/15/16 15:03 84 07/15/16 12:00 98.5 83 12 127/71 97 07/15/16 08:00 87 07/15/16 08:00 97.7 87 12 115/54 98 07/15/16 04:00 98.0 87 24 120/69 92 07/15/16 00:24 97.9 90 16 120/69 97 07/15/16 00:00 98.4 89 25 102/59 96 07/15/16 00:00 89 07/14/16 23:34 64 16 141/80 99 Room Air 07/14/16 23:00 87 16 99/60 96 Nasal Cannula 2 07/14/16 22:53 91 16 114/56 94 Nasal Cannula 2 07/14/16 21:46 83 16 116/73 97 Nasal Cannula 2 07/14/16 20:13 85 16 112/63 94 Room Air 07/14/16 19:17 92 14 114/57 100 07/14/16 18:27 105 18 131/78 97 Room Air 07/14/16 18:18 105 18 96 Room Air 07/14/16 18:17 96 Room Air 07/14/16 18:12 98.4 106 18 131/78 96 Physical Exam GENERAL: Thin male in no acute distress. HEENT: Normocephalic, atraumatic. Pupils equal, round and reactive. Extraocular movements intact. No scleral icterus. No injection or drainage. Oropharynx is clear. Mucous membranes are moist. Poor dentition. CARDIOVASCULAR: Regular rate and rhythm without murmurs, gallops, or rubs. RESPIRATORY: Clear to auscultation. No wheezes, rales, or rhonchi. Breathing is non-labored. GASTROINTESTINAL: Abdomen soft, non-tender, nondistended. EXTREMITIES: No lower extremity edema. No calf tenderness. PSYCH: The patient does awaken, but refuses to answer questions. Laboratory Laboratory Tests Test 07/14/16 07/14/16 07/14/16 07/15/16 18:37 20:08 20:47 01:15 White Blood Count 10.2 Red Blood Count 4.34 Hemoglobin 13.5 Hematocrit 38.9 Mean Corpuscular Volume 89.6 Mean Corpuscular Hemoglobin 31.1 Mean Corpuscular Hemoglobin 34.7 Concent Red Cell Distribution Width 11.9 Platelet Count 278 Mean Platelet Volume 8.3 Neutrophils (%) (Auto) 69.3 Lymphocytes (%) (Auto) 20.2 Monocytes (%) (Auto) 9.3 Eosinophils (%) (Auto) 0.7 Basophils (%) (Auto) 0.5 Neutrophils # (Auto) 7.0 Lymphocytes # (Auto) 2.1 Monocytes # (Auto) 0.9 Eosinophils # (Auto) 0.1 Basophils # (Auto) 0.1 CBC Comment DIFF FINAL Differential Comment Sodium Level 139 138 Potassium Level 3.5 5.1 Chloride Level 102 104 Carbon Dioxide Level 30.5 28.1 Anion Gap 7 6 Blood Urea Nitrogen 13 14 Creatinine 1.27 1.08 Estimat Glomerular Filtration 67 81 Rate Random Glucose 100 101 Calcium Level 8.6 8.1 Total Bilirubin 0.2 0.4 Aspartate Amino Transf 15 36 (AST/SGOT) Alanine Aminotransferase 21 24 (ALT/SGPT) Alkaline Phosphatase 78 77 Total Creatine Kinase 171 Total Protein 6.5 6.6 Albumin 3.2 3.1 Urine Color YELLOW Urine Turbidity CLEAR Urine pH 6.0 Urine Specific [place] 1.025 Urine Protein TRACE Urine Glucose (UA) NEG Urine Ketones TRACE Urine Occult Blood NEG Urine Nitrite NEG Urine Bilirubin NEG Urine Urobilinogen LESS THAN 2.0 Urine Leukocyte Esterase NEG Urine RBC LESS THAN 1 Urine WBC 1 Urine Mucus FEW Urine Opiates Screen POS Urine Barbiturates Screen NEG Urine Amphetamines Screen POS Urine Benzodiazepines Screen NEG Urine Cocaine Screen POS Urine Cannabinoids Screen POS Prothrombin Time 11.3 Prothromb Time International 1.0 Ratio Activated Partial 26.2 Thromboplast Time Direct Bilirubin LESS THAN 0.1 Indirect Bilirubin 0.3 Nasal Screen MRSA (PCR) NEGATIVE Test 07/15/16 04:32 Sodium Level 139 Potassium Level 3.8 Chloride Level 105 Carbon Dioxide Level 23.7 Anion Gap 10 Blood Urea Nitrogen 12 Creatinine 0.90 Estimat Glomerular Filtration 100 Rate Random Glucose 118 Calcium Level 9.1 Magnesium Level 2.1 Phenytoin (Dilantin) Level 13.9 Result Diagram: 07/14/167 07/15/16 0432 Imaging Last Impressions Brain MRI 07/14/16 1933 Signed Impressions: Service Date/Time: Thursday, July 14, 2016 21:15 - CONCLUSION: 1. Enhancing lobulated extra-axial mass in the right parietal region most characteristic of a meningioma. Measurements given above. There is associated mass effect and around 5 mm of [id number] midline shift. Cj Cali MD Head CT 07/14/16 1826 Signed Impressions: Service Date/Time: Thursday, July 14, 2016 18:49 - CONCLUSION: 1. 6.2 cm mass in the right parietal region. Further evaluation with MRI of the brain with contrast recommended. There is mass effect and about 6 mm of [id number] midline shift. Cj Cali MD Chest X-Ray 07/14/16 0000 Signed Impressions: Service Date/Time: Thursday, July 14, 2016 18:14 - CONCLUSION: No acute disease. Cj Cali MD Assessment and Plan Assessment and Plan 1. Parietal brain mass: Management per neurosurgery. 2. Polysubstance abuse: Appreciate psychiatry recommendations. Monitor for withdrawal. Urine toxicology positive for amphetamines, opiates, cocaine, cannabinoids. 3. Appreciate palliative care assistance with clarification of goals of care and determining decision maker as patient is refusing to interact with staff/ physicians. Jm Rivera MD Jul 15, 2016 15:44
[2016-07-16] VITALS: BP 104/58; PULSE 85; RESP 23; TEMP 98; O2SAT 98
[2016-07-16 04:00] VITALS: BP 120/65; PULSE 80; RESP 25; TEMP 98.2; O2SAT 97
[2016-07-16 04:31] LABS: AUTOMATED NEUTROPHIL # 10.9 TH/MM3 (1.8-7.7); BASOPHIL % 0.1 % (0.0-2.0); EOSINOPHIL % 0.1 % (0.0-4.0); HEMATOCRIT 41.4 % (39.0-51.0); HEMO FLAGS DIFF FINAL; LYMPH % 17.6 % (9.0-44.0); LYMPHOCYTE # 2.5 TH/MM3 (1.0-4.8); MEAN CELL VOLUME 89.6 FL (80.0-100.0); MEAN CORPUSCULAR HEMOGLOBIN 30.7 PG (27.0-34.0); MEAN CORPUSCULAR HGB CONC 34.3 % (32.0-36.0); MONO % 5.8 % (0.0-8.0); NEUT % 76.4 % (16.0-70.0); PLATELET COUNT 315 TH/MM3 (150-450); RED BLOOD COUNT 4.62 MIL/MM3 (4.50-5.90); WHITE BLOOD COUNT 14.2 TH/MM3 (4.0-11.0)
[2016-07-16 05:10] LABS: POTASSIUM 4.1 MEQ/L (3.5-5.1)
[2016-07-16 08:00] VITALS: BP 122/73; PULSE 73; RESP 20; TEMP 97.6; O2SAT 99
[2016-07-16] MEDS: FOSPHENYTOIN SODIUM 100 MG PE/2 ML VIAL IV SCH ×2 (08:40→22:00)
[2016-07-16] MEDS: DEXAMETHASONE SOD PHOS 4 MG/ML VIAL IV PUSH SCH ×2 (08:40→21:59)
[2016-07-16] MEDS: PANTOPRAZOLE SODIUM 40 MG VIAL IV SCH (08:40)
[2016-07-16] MEDS: SODIUM CHLORIDE 0.9% FLUSH 5 ML FLUSH IV FLUSH SCH ×2 (08:41→21:00)
--- NOTE | 2016-07-16 09:32 | HHI.PR ---
Subjective Remarks The patient is much more alert today. He denies pain, dyspnea, nausea, vomiting. He has apparently signed a healthcare surrogate form, designating his brother as his healthcare surrogate. The patient is agreeable to surgery. Objective Vitals Vital Signs Date Time Temp Pulse Resp B/P Pulse Ox O2 Delivery O2 Flow Rate FiO2 07/16/16 04:00 98.2 80 25 120/65 97 07/16/16 00:00 98.0 85 23 104/58 98 07/15/16 23:00 85 07/15/16 20:00 98.4 87 27 109/61 97 07/15/16 16:00 98.3 100 20 120/67 97 07/15/16 15:03 84 07/15/16 12:00 98.5 83 12 127/71 97 I/O 07/15/16 07/15/16 07/15/16 07/16/16 07/16/16 07/16/16 07:00 15:00 23:00 07:00 15:00 23:00 Intake Total 605 ml 180 ml 530 ml 240 ml Output Total 900 ml 500 ml 1200 ml 300 ml Balance -295 ml -320 ml -670 ml -60 ml Intake Oral 180 ml 480 ml 240 ml IV Total 605 ml 50 ml Output Urine Total 900 ml 500 ml 1200 ml 300 ml Stool Total 0 ml 0 ml Result Diagram: 07/16/166 07/16/166 Imaging Last Impressions Brain MRI 07/14/16 1933 Signed Impressions: Service Date/Time: Thursday, July 14, 2016 21:15 - CONCLUSION: 1. Enhancing lobulated extra-axial mass in the right parietal region most characteristic of a meningioma. Measurements given above. There is associated mass effect and around 5 mm of [id number] midline shift. Cj Cali MD Head CT 07/14/16 1826 Signed Impressions: Service Date/Time: Thursday, July 14, 2016 18:49 - CONCLUSION: 1. 6.2 cm mass in the right parietal region. Further evaluation with MRI of the brain with contrast recommended. There is mass effect and about 6 mm of [id number] midline shift. Cj Cali MD Chest X-Ray 07/14/16 0000 Signed Impressions: Service Date/Time: Thursday, July 14, 2016 18:14 - CONCLUSION: No acute disease. Cj Cali MD Objective Remarks General: No acute distress. HEENT: Poor dentition. Heart: Regular rate and rhythm. No murmur. Lungs: Clear to auscultation bilaterally. No wheezes, rales, or rhonchi. Breathing is nonlabored. Abdomen: Soft, nontender, nondistended. Extremities: No lower extremity edema. Psych: Alert and oriented. Urinary Catheter: No Vascular Central Line Catheter: No A/P Problem List: (1) Seizure ICD Code: R56.9 Status: Acute (2) Neoplasm of brain causing mass effect on adjacent structures ICD Code: D49.6 Status: Acute (3) Polysubstance abuse ICD Code: F19.10 Status: Acute Assessment and Plan 1. Parietal brain mass: Management per neurosurgery. Patient is now agreeable to surgery. 2. Polysubstance abuse: Appreciate psychiatry recommendations. Monitor for withdrawal. Urine toxicology positive for amphetamines, opiates, cocaine, cannabinoids. Monitor for signs of withdrawal. Seizure precautions. 3. Appreciate palliative care assistance with clarification of goals of care. The patient is much more alert today and is willing to interact with providers. He has reportedly designated his brother as the healthcare surrogate if he is at any point unable to make decisions. [facility] will sign off. Please reconsult as needed if there are further medical issues. Jm Rivera MD Jul 16, 2016 09:31
[2016-07-16 12:00] VITALS: BP 109/66; PULSE 86; RESP 18; TEMP 98.6; O2SAT 97
--- NOTE | 2016-07-16 12:54 | HHI.NSPN ---
Subjective History 30 yr old was admitted with 2 seizures and found to have a large right parietal mass. He is avoidant and asking to leave. His tox screen showed cocaine and poly substance abuse. 07-16-16 He is now alert and awake, He has made his brother his POA but is now able to discuss surgery and complications. He would like to proceed with surgical removal of the mass. Vitals . Vital Signs Date Time Temp Pulse Resp B/P Pulse Ox O2 Delivery O2 Flow Rate FiO2 07/16/16 08:00 97.6 73 20 122/73 99 07/16/16 08:00 73 07/16/16 04:00 98.2 80 25 120/65 97 07/16/16 00:00 98.0 85 23 104/58 98 07/15/16 23:00 85 07/15/16 20:00 98.4 87 27 109/61 97 07/15/16 16:00 98.3 100 20 120/67 97 07/15/16 15:03 84 07/15/16 07/15/16 07/16/16 15:00 23:00 07:00 Intake Total 180 ml 530 ml 240 ml Output Total 500 ml 1200 ml 300 ml Balance -320 ml -670 ml -60 ml Physical Exam Head Head: Atraumatic Eyes Eyes: Pupils Equal Neuro Mental Status: Awake, Alert, Oriented x 3 Pupils: Reactive Bilaterally [place] Coma Scale Best Eye Openin - Spontaneous Best Verbal: 5 - Oriented Best Motor: 6 - Obeys Sensation: Intact (denies sensory loss) Cardiac Cardiac: Regular Rate & Rhythm Respiratory Respiratory: CTA Gastrointestinal Gastrointestinal: Soft Musculoskeletal Musculoskeletal: Moves all extrem with 5/5 strength Extremities Upper Extremities Deltoid Bicep Tricep HI W. Ext Right Left Lower Extremeties Ilio Quad Plantar Dorsi EHL Right Left Dermatologic Dermatologic: Skin Intact Extremities Edema: No Edema Objective Labs Laboratory Tests 07/16/16 04:06 Laboratory Tests Test 07/16/16 04:06 Sodium Level 139 MEQ/L Potassium Level 4.1 MEQ/L Chloride Level 103 MEQ/L Carbon Dioxide Level 27.0 MEQ/L Anion Gap 9 MEQ/L Blood Urea Nitrogen 17 MG/DL Creatinine 0.95 MG/DL Estimat Glomerular Filtration 94 ML/MIN Rate Random Glucose 87 MG/DL Calcium Level 8.9 MG/DL Laboratory Tests Test 07/16/16 04:06 Phenytoin (Dilantin) Level 10.5 MCG/ML Assessment & Plan Diagnosis: (1) Neoplasm of brain causing mass effect on adjacent structures Plan: MRI of the brain shows a large extra axial mass. Resection is planned for tuesday. Transfer to the floor is planned and seizure prophylaxis is continued. (2) Seizure Plan: Cerebryx was given in the ED and will be continued for now. Keppra is initiated because of low phenytoin levels on 400 daily (3) Polysubstance abuse Plan: Psychiatry consultation appreciated. Zachery Jerome Jul 16, 2016 12:54
--- NOTE | 2016-07-16 14:10 | HHI.HCPN ---
Reason for visit a. To assist with evaluation and management of symptoms including: agitation , pain. b. To assist medical decision maker(s) with: better understanding of current medical conditions; weighing benefits/burdens of medical treatment options; making medical treatment decisions. . Subjective/Interval History Patient seen and examined in ICU. Patient's mother and father at bedside. Patient is awake and alert, he is communicating today. He gets up with PT to ambulate in mike. He denies headache, vision changes or pain. He has some situational anxiety. He wants to move forward with resection of brain mass. Patient designated his brother, Jm as HCS should he lose capacity. Parents are aware. Patient has insignt and judgement to his current clinical condition. He appears capacitated to make his own decisions at this time. Afebrile. Vital signs stable. WBC 14.2, hemoglobin 14.2, hematocrit 41.4, platelets 315. . Family/friend interactions See interval note. . Advance Directives Living Will: Never completed Health Care Surrogate: Never completed Durable Power of Purchasing Manager: Never completed Advance Directive Specifics Health Care Surrogate(s): No written advanced directives. Single. No children. Parents alive, no contact information for mother (per family or ACCURINTS). Has 1 brother and 1 sister. According to [place] statutes, health care proxy decision making falls to a parent. Father, Pb Dunn is willing to serve as health care proxy decision maker. . Significant change in goals: FULL CODE. Patient wants to proceed with surgical resection of brain mass. Tentative plan per Dr. Jerome for surgery on Tuesday. . Objective Vital Signs Date Time Temp Pulse Resp B/P Pulse Ox O2 Delivery O2 Flow Rate FiO2 07/16/16 08:00 97.6 73 20 122/73 99 07/16/16 08:00 73 07/16/16 04:00 98.2 80 25 120/65 97 07/16/16 00:00 98.0 85 23 104/58 98 07/15/16 23:00 85 07/15/16 20:00 98.4 87 27 109/61 97 07/15/16 16:00 98.3 100 20 120/67 97 07/15/16 15:03 84 Intake & Output 07/16/16 07/16/16 07:00 19:00 Intake Total 770 ml Output Total 1500 ml Balance -730 ml Intake Oral 720 ml IV Total 50 ml Output Urine Total 1500 ml Stool Total 0 ml Physical Exam CONSTITUTIONAL/GENERAL: This is thin, young man, in no apparent distress. TUBES/LINES/DRAINS: PIV. SKIN: No jaundice, rashes, or lesions. Ecchymoses on upper extremities. No wounds seen anteriorly. Skin temperature appropriate. Not diaphoretic. EYES: pupils equal and reactive. ENT: Hearing grossly normal. Nose without bleeding or purulent drainage. Poor dentition. CARDIOVASCULAR: Regular rate and rhythm without murmurs, gallops, or rubs. RESPIRATORY/CHEST: Symmetric, unlabored respirations. Clear to auscultation. Breath sounds equal bilaterally. No wheezes, rales, or rhonchi. GASTROINTESTINAL: Abdomen soft, non-tender, nondistended. No guarding. Bowel sounds present. GENITOURINARY: Without palpable bladder distension. MUSCULOSKELETAL: Extremities without clubbing, cyanosis, or edema. NEUROLOGICAL: Awake and alert. Following commands. Up with PT in mike and to chair. Moves all extremities. PSYCHIATRIC: Awake and cooperative. . Diagnostic Tests Laboratory Laboratory Tests Test 07/14/16 07/14/16 07/14/16 07/15/16 18:37 20:08 20:47 01:15 White Blood Count 10.2 TH/MM3 (4.0-11.0) Red Blood Count 4.34 MIL/MM3 (4.50-5.90) Hemoglobin 13.5 GM/DL (13.0-17.0) Hematocrit 38.9 % (39.0-51.0) Mean Corpuscular Volume 89.6 FL (80.0-100.0) Mean Corpuscular Hemoglobin 31.1 PG (27.0-34.0) Mean Corpuscular Hemoglobin 34.7 % Concent (32.0-36.0) Red Cell Distribution Width 11.9 % (11.6-17.2) Platelet Count 278 TH/MM3 (150-450) Mean Platelet Volume 8.3 FL (7.0-11.0) Neutrophils (%) (Auto) 69.3 % (16.0-70.0) Lymphocytes (%) (Auto) 20.2 % (9.0-44.0) Monocytes (%) (Auto) 9.3 % (0.0-8.0) Eosinophils (%) (Auto) 0.7 % (0.0-4.0) Basophils (%) (Auto) 0.5 % (0.0-2.0) Neutrophils # (Auto) 7.0 TH/MM3 (1.8-7.7) Lymphocytes # (Auto) 2.1 TH/MM3 (1.0-4.8) Monocytes # (Auto) 0.9 TH/MM3 (0-0.9) Eosinophils # (Auto) 0.1 TH/MM3 (0-0.4) Basophils # (Auto) 0.1 TH/MM3 (0-0.2) CBC Comment DIFF FINAL Differential Comment Sodium Level 139 MEQ/L 138 MEQ/L (136-145) (136-145) Potassium Level 3.5 MEQ/L 5.1 MEQ/L (3.5-5.1) (3.5-5.1) Chloride Level 102 MEQ/L 104 MEQ/L (98-107) (98-107) Carbon Dioxide Level 30.5 MEQ/L 28.1 MEQ/L (21.0-32.0) (21.0-32.0) Anion Gap 7 MEQ/L (5-15) 6 MEQ/L (5-15) Blood Urea Nitrogen 13 MG/DL (7-18) 14 MG/DL (7-18) Creatinine 1.27 MG/DL 1.08 MG/DL (0.60-1.30) (0.60-1.30) Estimat Glomerular Filtration 67 ML/MIN (>89) 81 ML/MIN (>89) Rate Random Glucose 100 MG/DL 101 MG/DL (74-106) (74-106) Calcium Level 8.6 MG/DL 8.1 MG/DL (8.5-10.1) (8.5-10.1) Total Bilirubin 0.2 MG/DL 0.4 MG/DL (0.2-1.0) (0.2-1.0) Aspartate Amino Transf 15 U/L (15-37) 36 U/L (15-37) (AST/SGOT) Alanine Aminotransferase 21 U/L (12-78) 24 U/L (12-78) (ALT/SGPT) Alkaline Phosphatase 78 U/L (45-117) 77 U/L (45-117) Total Creatine Kinase 171 U/L (39-308) Total Protein 6.5 GM/DL 6.6 GM/DL (6.4-8.2) (6.4-8.2) Albumin 3.2 GM/DL 3.1 GM/DL (3.4-5.0) (3.4-5.0) Urine Color YELLOW (YELLW/STRAW) Urine Turbidity CLEAR (CLEAR) Urine pH 6.0 (5.0-8.5) Urine Specific Gardner 1.025 (1.002-1.035) Urine Protein TRACE mg/dL (NEG-TRACE) Urine Glucose (UA) NEG mg/dL (NEG) Urine Ketones TRACE mg/dL (NEG) Urine Occult Blood NEG (NEG) Urine Nitrite NEG (NEG) Urine Bilirubin NEG (NEG) Urine Urobilinogen LESS THAN 2.0 MG/DL (LESS THAN 2.0) Urine Leukocyte Esterase NEG (NEG) Urine RBC LESS THAN 1 /hpf (0-3) Urine WBC 1 /hpf (0-5) Urine Mucus FEW /lpf (OCC) Urine Opiates Screen POS (NEG) Urine Barbiturates Screen NEG (NEG) Urine Amphetamines Screen POS (NEG) Urine Benzodiazepines Screen NEG (NEG) Urine Cocaine Screen POS (NEG) Urine Cannabinoids Screen POS (NEG) Prothrombin Time 11.3 SEC (9.8-11.6) Prothromb Time International 1.0 RATIO Ratio Activated Partial 26.2 SEC Thromboplast Time (24.3-30.1) Direct Bilirubin LESS THAN 0.1 MG/DL (0.0-0.2) Indirect Bilirubin 0.3 MG/DL (0.0-0.8) Nasal Screen MRSA (PCR) NEGATIVE (NEGATIVE) Test 07/15/16 07/16/16 04:32 04:06 Sodium Level 139 MEQ/L 139 MEQ/L (136-145) (136-145) Potassium Level 3.8 MEQ/L 4.1 MEQ/L (3.5-5.1) (3.5-5.1) Chloride Level 105 MEQ/L 103 MEQ/L (98-107) (98-107) Carbon Dioxide Level 23.7 MEQ/L 27.0 MEQ/L (21.0-32.0) (21.0-32.0) Anion Gap 10 MEQ/L (5-15) 9 MEQ/L (5-15) Blood Urea Nitrogen 12 MG/DL (7-18) 17 MG/DL (7-18) Creatinine 0.90 MG/DL 0.95 MG/DL (0.60-1.30) (0.60-1.30) Estimat Glomerular Filtration 100 ML/MIN 94 ML/MIN (>89) Rate (>89) Random Glucose 118 MG/DL 87 MG/DL (74-106) (74-106) Calcium Level 9.1 MG/DL 8.9 MG/DL (8.5-10.1) (8.5-10.1) Magnesium Level 2.1 MG/DL (1.5-2.5) Phenytoin (Dilantin) Level 13.9 MCG/ML 10.5 MCG/ML (10.0-20.0) (10.0-20.0) White Blood Count 14.2 TH/MM3 (4.0-11.0) Red Blood Count 4.62 MIL/MM3 (4.50-5.90) Hemoglobin 14.2 GM/DL (13.0-17.0) Hematocrit 41.4 % (39.0-51.0) Mean Corpuscular Volume 89.6 FL (80.0-100.0) Mean Corpuscular Hemoglobin 30.7 PG (27.0-34.0) Mean Corpuscular Hemoglobin 34.3 % Concent (32.0-36.0) Red Cell Distribution Width 12.0 % (11.6-17.2) Platelet Count 315 TH/MM3 (150-450) Mean Platelet Volume 8.3 FL (7.0-11.0) Neutrophils (%) (Auto) 76.4 % (16.0-70.0) Lymphocytes (%) (Auto) 17.6 % (9.0-44.0) Monocytes (%) (Auto) 5.8 % (0.0-8.0) Eosinophils (%) (Auto) 0.1 % (0.0-4.0) Basophils (%) (Auto) 0.1 % (0.0-2.0) Neutrophils # (Auto) 10.9 TH/MM3 (1.8-7.7) Lymphocytes # (Auto) 2.5 TH/MM3 (1.0-4.8) Monocytes # (Auto) 0.8 TH/MM3 (0-0.9) Eosinophils # (Auto) 0.0 TH/MM3 (0-0.4) Basophils # (Auto) 0.0 TH/MM3 (0-0.2) CBC Comment DIFF FINAL Differential Comment Result Diagram: 07/16/166 07/16/166 Imaging Last Impressions Brain MRI 07/14/16 1933 Signed Impressions: Service Date/Time: Thursday, July 14, 2016 21:15 - CONCLUSION: 1. Enhancing lobulated extra-axial mass in the right parietal region most characteristic of a meningioma. Measurements given above. There is associated mass effect and around 5 mm of [id number] midline shift. Cj Cali MD Head CT 07/14/16 1826 Signed Impressions: Service Date/Time: Thursday, July 14, 2016 18:49 - CONCLUSION: 1. 6.2 cm mass in the right parietal region. Further evaluation with MRI of the brain with contrast recommended. There is mass effect and about 6 mm of [id number] midline shift. Cj Cali MD Chest X-Ray 07/14/16 0000 Signed Impressions: Service Date/Time: Thursday, July 14, 2016 18:14 - CONCLUSION: No acute disease. Cj Cali MD . Assessment and Plan Disease Oriented Problem List: (1) Polysubstance abuse (2) Neoplasm of brain causing mass effect on adjacent structures (3) Seizure Symptom Scale: (1) Seizure 0-10 Scale: Unable to quantify (2) Agitation 0-10 Scale: Unable to quantify Comment: pt refuses to engage in conversation during my visit. Pertinent Non-Medical Issues Psychosocial:Single. Spiritual:Unknown. Legal: According to [place] statutes, health care proxy decision making falls to parent. Ethical issues impacting care: No known concerns at this time. . Important Contacts * Pb Dunn, father/HCP: [phone] * Jm Dunn, brother: [phone] * Anastacia Gloria, grandmother: [phone] * Flavia Rombertha, sister: no contact information. * Milena Dunn, mother: No contact information per family or ACCURINTS search, old number disconnected. . Prognosis Per neurosurgery he should do well with resection of brain mass. . Code Status: Full Code Plan * No written advanced directives. Single. No children. Parents alive. Patient completed designation of healthcare surrogate form naming his brother Jm Dunn as healthcare surrogate should he lose capacity. Patient is currently capacitated to make his own health care decisions. * FULL CODE * Palliative care and Dr. Jerome spoke with patient, father, Pb and mother, Milena at bedside. Patient has elected to proceed with surgical resection of brain mass. Tentative plan for surgical resection on Tuesday07/20/16. * Discussed with Dr. Jerome, Dr. Evans and nurse. * SYMPTOMS: Seizure: On Cerebyx and Decadron. Pain: denies. Agitation: PRN Haldol available. Anxiety: situational anxiety. Will monitor. * Palliative care will continue to follow throughout hospital course to assist with symptom management and further clarification of treatment goals. . Attestation To help prompt me to consider important information that might be impacting today's encounter and assessment, information from prior notes written by myself or my colleagues may have been "brought forward" into today's note. My signature on this note, however, is an attestation that I personally performed the exam, history, and/or decision-making noted today, and, unless otherwise indicated, the interactions with patient, family, and staff as well as the review of records all occurred today. I also attest that the listed assessment and stated plan reflect my best clinical judgment today based on the combination of historical information, prior notes, and today's exam/ interactions. When time spent is documented, it refers only to time spent today by the signer, or if indicated, combined time spent today by collaborating physician/nurse practitioner. . ADITI BALES Jul 16, 2016 14:10
[2016-07-16 16:00] VITALS: BP 106/59; PULSE 60; RESP 16; TEMP 98.6; O2SAT 99
[2016-07-16 20:35] VITALS: BP 131/79; PULSE 97; RESP 20; TEMP 98.7; O2SAT 97
[2016-07-16] MEDS: levETIRAcetam 500 MG TAB PO SCH (21:59)
[2016-07-16] MEDS: CHLORHEXIDINE GLUCONATE 2 % 1 PACK (2 CLOTHS)(taper/protocol) TOP SCH (22:07)
[2016-07-17 00:57] VITALS: BP 110/86; PULSE 106; RESP 20; TEMP 97.7; O2SAT 95
[2016-07-17 05:14] VITALS: BP 112/61; PULSE 70; RESP 18; TEMP 97.2; O2SAT 95
[2016-07-17 08:00] VITALS: BP 102/60; PULSE 80; RESP 18; TEMP 97.1; O2SAT 99
[2016-07-17] MEDS: PANTOPRAZOLE SODIUM 40 MG VIAL IV SCH (10:30)
[2016-07-17] MEDS: SODIUM CHLORIDE 0.9% FLUSH 5 ML FLUSH IV FLUSH SCH ×2 (10:30→22:22)
[2016-07-17] MEDS: FOSPHENYTOIN SODIUM 100 MG PE/2 ML VIAL IV SCH ×2 (10:30→22:45)
[2016-07-17] MEDS: DEXAMETHASONE SOD PHOS 4 MG/ML VIAL IV PUSH SCH ×2 (10:31→22:21)
[2016-07-17] MEDS: levETIRAcetam 500 MG TAB PO SCH ×2 (10:33→22:21)
[2016-07-17 12:00] VITALS: BP 111/64; PULSE 76; RESP 18; TEMP 97; O2SAT 100
--- NOTE | 2016-07-17 15:24 | HHI.NSPN ---
History Chief Complaint: None Interval History Admitted with seizures, stable on phenytoin, alert and oriented x 3 Affect improved, no neglect Review of Systems General: Negative for: fever, chills, insomnia Respiratory: Negative for: shortness of breath, cough, sputum Genitourinary: Negative for: urinary burning, urinary frequency, urinary urgency Exam Results Vital Signs Date Time Temp Pulse Resp B/P Pulse Ox O2 Delivery O2 Flow Rate FiO2 07/17/16 12:00 97.0 76 18 111/64 100 07/14/16 23:34 Room Air 07/14/16 23:00 2 Intake and Output 07/16/16 07/16/16 07/17/16 08:00 16:00 00:00 Intake Total 240 ml 620 ml 480 ml Output Total 300 ml 900 ml Balance -60 ml -280 ml 480 ml Physical Examination Alert, speech fluent EOMI Face symmetric Tone WNL No focal motor or sensory deficit Medical Decision Making Impression and Plan Large right parietal mass with mass effect, will wean decadron and start keppra today. Surgery planning continued. Zachery Jerome Jul 17, 2016 15:24
[2016-07-17 16:00] VITALS: BP 118/64; PULSE 61; RESP 18; TEMP 98.1; O2SAT 96
[2016-07-17 20:48] VITALS: BP 113/79; PULSE 79; RESP 18; TEMP 96.7; O2SAT 98
[2016-07-18 00:49] VITALS: BP 103/57; PULSE 72; RESP 18; TEMP 97.2; O2SAT 96
[2016-07-18] MEDS: CHLORHEXIDINE GLUCONATE 2 % 1 PACK (2 CLOTHS)(taper/protocol) TOP SCH (04:00)
[2016-07-18 04:39] VITALS: BP 117/65; PULSE 61; RESP 18; TEMP 97.2; O2SAT 97
[2016-07-18 08:00] VITALS: BP 122/72; PULSE 69; RESP 20; TEMP 97.8; O2SAT 100
[2016-07-18] MEDS: PANTOPRAZOLE SODIUM 40 MG VIAL IV SCH (09:34)
[2016-07-18] MEDS: levETIRAcetam 500 MG TAB PO SCH ×2 (09:36→23:11)
[2016-07-18] MEDS: DEXAMETHASONE SOD PHOS 4 MG/ML VIAL IV PUSH SCH (09:36)
[2016-07-18] MEDS: FOSPHENYTOIN SODIUM 100 MG PE/2 ML VIAL IV SCH ×2 (09:36→23:16)
[2016-07-18] MEDS: SODIUM CHLORIDE 0.9% FLUSH 5 ML FLUSH IV FLUSH SCH ×2 (09:37→23:12)
[2016-07-18 12:00] VITALS: BP 122/76; PULSE 77; RESP 20; TEMP 95.6; O2SAT 99
--- NOTE | 2016-07-18 13:10 | HHI.NSPN ---
History Chief Complaint: None Interval History Admitted with seizures, stable on phenytoin, alert and oriented x 3 Affect improved, no neglect Review of Systems General: Negative for: fever, chills, insomnia Respiratory: Negative for: shortness of breath, cough, sputum Cardiovascular: Negative for: chest pain, palpitations, orthopnea Gastrointestinal: Negative for: nausea, vomitting, diarrhea, constipation Genitourinary: Negative for: urinary burning, urinary frequency, urinary urgency Exam Results Vital Signs Date Time Temp Pulse Resp B/P Pulse Ox O2 Delivery O2 Flow Rate FiO2 07/18/16 12:00 95.6 77 20 122/76 99 07/14/16 23:34 Room Air 07/14/16 23:00 2 Intake and Output 07/17/16 07/17/16 07/18/16 08:00 16:00 00:00 Intake Total 480 ml Balance 480 ml Physical Examination Alert, speech fluent EOMI Face symmetric Tone WNL No focal motor or sensory deficit, ambulating with good balance Lab, Micro, Other Results Laboratory Tests Test 07/17/16 15:30 Nasal Screen MRSA (PCR) NEGATIVE Medical Decision Making Impression and Plan Large right parietal mass with mass effect, will wean decadron and start keppra today. Surgery planning continued. Zachery Jerome Jul 18, 2016 13:10
[2016-07-18 16:00] VITALS: BP 134/88; PULSE 91; RESP 20; TEMP 98.1; O2SAT 96
[2016-07-18 20:00] VITALS: BP 117/79; PULSE 15; PULSE 75; RESP 18; TEMP 97.2; O2SAT 96
[2016-07-18] MEDS: TEMAZEPAM 15 MG CAP PO PRN (23:11)
[2016-07-19 02:00] VITALS: BP_SYST 104; BP_SYST 120; BP_DIAS 74; BP_DIAS 94; PULSE 103; PULSE 70; RESP 15; RESP 18; TEMP 98.6; O2SAT 96
[2016-07-19 04:00] VITALS: BP 108/58; PULSE 70; RESP 16; TEMP 96.7; O2SAT 96
[2016-07-19] MEDS: CHLORHEXIDINE GLUCONATE 2 % 1 PACK (2 CLOTHS)(taper/protocol) TOP SCH (04:00)
[2016-07-19] MEDS: DEXAMETHASONE SOD PHOS 4 MG/ML VIAL IV PUSH SCH (06:03)
[2016-07-19 08:20] VITALS: BP 108/63; PULSE 79; RESP 20; TEMP 98.2; O2SAT 100
[2016-07-19] MEDS: levETIRAcetam 500 MG TAB PO SCH ×2 (08:43→21:22)
[2016-07-19] MEDS: PANTOPRAZOLE SODIUM 40 MG VIAL IV SCH (08:44)
[2016-07-19] MEDS: FOSPHENYTOIN SODIUM 100 MG PE/2 ML VIAL IV SCH ×2 (08:44→22:01)
[2016-07-19] MEDS: SODIUM CHLORIDE 0.9% FLUSH 5 ML FLUSH IV FLUSH SCH ×3 (08:44→22:48)
--- NOTE | 2016-07-19 11:37 | HHI.NSPN ---
History Chief Complaint: None Interval History Admitted with seizures, stable on phenytoin, alert and oriented x 3 Affect improved, no neglect Review of Systems General: Negative for: fever, chills, insomnia Respiratory: Negative for: shortness of breath, cough, sputum Cardiovascular: Negative for: chest pain, palpitations, orthopnea Gastrointestinal: Negative for: nausea, vomitting, diarrhea, constipation Genitourinary: Negative for: urinary burning, urinary frequency, urinary urgency Exam Results Vital Signs Date Time Temp Pulse Resp B/P Pulse Ox O2 Delivery O2 Flow Rate FiO2 07/19/16 08:20 98.2 79 20 108/63 100 Intake and Output 07/18/16 07/18/16 07/19/16 08:00 16:00 00:00 Intake Total 480 ml Output Total 400 ml Balance -400 ml 480 ml Physical Examination Alert, speech fluent EOMI Face symmetric Tone WNL No focal motor or sensory deficit, ambulating with good balance Medical Decision Making Impression and Plan Large right parietal mass with mass effect, on and , resection is planned for tuesday. Total Minutes: 10 Zachery Jerome Jul 19, 2016 11:37
[2016-07-19 13:00] VITALS: BP 155/89; PULSE 100; RESP 22; TEMP 96.7; O2SAT 98
[2016-07-19 16:13] VITALS: BP 135/85; PULSE 91; RESP 20; TEMP 96.9; O2SAT 98
--- NOTE | 2016-07-19 17:27 | HHI.HCPN ---
Reason for visit a. To assist with evaluation and management of symptoms including: pain, seizure, insomnia. b. To assist medical decision maker(s) with: better understanding of current medical conditions; weighing benefits/burdens of medical treatment options; making medical treatment decisions. . Subjective/Interval History Patient seen and examined in room. Patient's father bedside. Patient is awake and alert, pleasant, laughing and appreciative for time spent. He tells me the story of what he felt just prior to seizure, he reports he was [place] [address] with co-workers in the care, when his left arm became numb and tingling. He reports that he pulled over became rigid and started to seize. At which time his friend at the car in park. He is quite thankful that he, his friends and others were okay. Verbalizing that he could've hurt other people. He asks if this brain mass could have caused him altered thought process, which I explained could be possible. He asks if we know what caused this mass, I explained at this time were not sure. Reviewed we may be able to give more information after surgery once pathology is resulted. There is some question of family history on his mother's side. He is ambulating around the room. Anxious to "get surgery over with," surgery planned 07/21/16 at 8 AM per patient report. Remains optimistic for quick recovery. He denies headache, blurred vision, seizure or pain. Afebrile. Vital signs stable. No new labs or imaging. . Family/friend interactions See interval note. Advance Directives Living Will: Never completed Health Care Surrogate: Never completed Durable Power of Medical Officer Psychiatry: Never completed Advance Directive Specifics Health Care Surrogate(s): Patient completed designation of healthcare surrogate form naming his brother Jm Dunn as healthcare surrogate should he lose capacity. Patient is currently capacitated to make his own health care decisions. . Significant change in goals: FULL CODE. Patient desires to proceed with surgical resection of brain mass tentatively planned 07/21/16 at 8 AM per patient report. . Objective Vital Signs Date Time Temp Pulse Resp B/P Pulse Ox O2 Delivery O2 Flow Rate FiO2 07/19/16 16:13 96.9 91 20 135/85 98 07/19/16 13:00 96.7 100 22 155/89 98 07/19/16 08:20 98.2 79 20 108/63 100 07/19/16 04:00 96.7 70 16 108/58 96 07/19/16 02:00 98.6 70 18 120/74 96 07/18/16 20:00 97.2 75 18 117/79 96 Intake & Output 07/19/16 07/19/16 07:00 19:00 # Voids 3 Physical Exam CONSTITUTIONAL/GENERAL: This is thin, young man, in no apparent distress. TUBES/LINES/DRAINS: PIV. SKIN: No jaundice, rashes, or lesions. Ecchymoses on upper extremities. No wounds seen anteriorly. Skin temperature appropriate. Not diaphoretic. EYES: pupils equal and reactive. CARDIOVASCULAR: Regular rate and rhythm without murmurs, gallops, or rubs. RESPIRATORY/CHEST: Symmetric, unlabored respirations. Clear to auscultation. Breath sounds equal bilaterally. No wheezes, rales, or rhonchi. GASTROINTESTINAL: Abdomen soft, non-tender, nondistended. No guarding. Bowel sounds present. GENITOURINARY: Without palpable bladder distension. MUSCULOSKELETAL: Extremities without clubbing, cyanosis, or edema. NEUROLOGICAL: Awake and alert. Following commands. Moves all extremities. PSYCHIATRIC: Awake and cooperative. . Diagnostic Tests Laboratory Laboratory Tests Test 07/17/16 15:30 Nasal Screen MRSA (PCR) NEGATIVE (NEGATIVE) Result Diagram: 07/16/1640507/16/16405 Assessment and Plan Disease Oriented Problem List: (1) Polysubstance abuse (2) Neoplasm of brain causing mass effect on adjacent structures (3) Seizure Symptom Scale: (1) Seizure 0-10 Scale: 0 Comment: Controlled on meds - on dexamethasone and Keppra (2) Insomnia 0-10 Scale: 0 Comment: May be related to anxiety, hospitalization, steroids. Patient reports relieved with PRN Restoril. Pertinent Non-Medical Issues Psychosocial:Single. Spiritual:Unknown. Legal: According to [place] statutes, health care proxy decision making falls to parent. Ethical issues impacting care: No known concerns at this time. . Important Contacts * Pb Dunn, father/HCP: [phone] * Jm Dunn, brother: [phone] * Anastacia Reneluis daniel, grandmother: [phone] * Flavia Shaun, sister: no contact information. * Milena Dunn, mother: No contact information per family or [employer] search, old number disconnected. . Prognosis Per neurosurgery he should do well with resection of brain mass. . Code Status: Full Code Plan * No Living Will. Patient completed designation of healthcare surrogate form naming his brother Jm Dunn as healthcare surrogate should he lose capacity. Patient is currently capacitated to make his own health care decisions. * FULL CODE * Spoke with patient and father, Pb at bedside. Patient has elected to proceed with surgical resection of brain mass. Tentative plan for surgical resection on Tuesday07/21/16 at 8am. * SYMPTOMS: Seizure: On Keppra and Decadron. Pain: denies. Anxiety: situational anxiety. Insomnia: relieved with PRN temazepam. No new medication recommendations at this time. * Palliative care number provided. Will continue to follow throughout hospital course to assist with symptom management and further clarification of treatment goals. . Attestation To help prompt me to consider important information that might be impacting today's encounter and assessment, information from prior notes written by myself or my colleagues may have been "brought forward" into today's note. My signature on this note, however, is an attestation that I personally performed the exam, history, and/or decision-making noted today, and, unless otherwise indicated, the interactions with patient, family, and staff as well as the review of records all occurred today. I also attest that the listed assessment and stated plan reflect my best clinical judgment today based on the combination of historical information, prior notes, and today's exam/ interactions. When time spent is documented, it refers only to time spent today by the signer, or if indicated, combined time spent today by collaborating physician/nurse practitioner. ADITI BALES Jul 19, 2016 17:27
[2016-07-19 20:00] VITALS: BP 147/96; PULSE 85; RESP 20; TEMP 97.6; O2SAT 96
[2016-07-19] MEDS: TEMAZEPAM 15 MG CAP PO PRN (22:00)
[2016-07-20] VITALS: BP 117/73; PULSE 89; RESP 22; TEMP 97.3; O2SAT 97
[2016-07-20 04:00] VITALS: BP 110/77; PULSE 88; RESP 18; TEMP 96.7; O2SAT 96
[2016-07-20] MEDS: DEXAMETHASONE SOD PHOS 4 MG/ML VIAL IV PUSH SCH (06:03)
[2016-07-20 08:43] VITALS: BP 108/71; PULSE 69; RESP 20; TEMP 97.6; O2SAT 97
[2016-07-20] MEDS: FOSPHENYTOIN SODIUM 100 MG PE/2 ML VIAL IV SCH ×2 (08:43→22:48)
[2016-07-20] MEDS: SODIUM CHLORIDE 0.9% FLUSH 5 ML FLUSH IV FLUSH SCH (08:44)
[2016-07-20] MEDS: levETIRAcetam 500 MG TAB PO SCH ×2 (08:44→22:46)
[2016-07-20] MEDS: PANTOPRAZOLE SODIUM 40 MG VIAL IV SCH (08:44)
[2016-07-20 12:11] VITALS: BP 121/90; PULSE 99; RESP 20; TEMP 97.6; O2SAT 97
[2016-07-20 16:44] VITALS: BP 116/77; PULSE 80; RESP 20; TEMP 98.7; O2SAT 97
[2016-07-20 20:00] VITALS: BP 142/79; PULSE 102; RESP 20; TEMP 98.6; O2SAT 98
[2016-07-21] VITALS: BP 111/67; PULSE 98; RESP 20; TEMP 98.6; O2SAT 97
[2016-07-21 04:00] VITALS: BP 98/53; PULSE 85; RESP 20; TEMP 97.7; O2SAT 97
[2016-07-21] MEDS ORDERED: DEXAMETHASONE SOD PHOS 20 MG/5 ML VIAL IM SCH (06:30)
[2016-07-21] MEDS ORDERED: CLINDAMYCIN PHOS 600 MG/4 ML VIAL IM SCH (07:30)
--- NOTE | 2016-07-21 08:10 | HHI.NSPN ---
History Chief Complaint: None Interval History Admitted with seizures, stable on phenytoin, alert and oriented x 3. The patient was scheduled for surgery but had difficulty following nursing requests. He was smoking in his room and security was called. He also disappeared from his room for more than 2 hrs last night. His surgery was cancelled and stat drug screen was requested as well as psychological counselling. However he signed out ama when he was told that he could not smoke or do drugs in the hospital. A prescription for keppra was given to his grand mother and mother. Exam Results Vital Signs Date Time Temp Pulse Resp B/P Pulse Ox O2 Delivery O2 Flow Rate FiO2 07/21/16 04:00 97.7 85 20 98/53 97 Intake and Output 07/20/16 07/20/16 07/21/16 08:00 16:00 00:00 Intake Total 480 ml Balance 480 ml Physical Examination Alert, speech fluent EOMI Face symmetric Tone WNL No focal motor or sensory deficit, ambulating with good balance Medical Decision Making Impression and Plan Large right parietal mass with mass effect, on decadron and keppra, resection is on hold pending negative drug screen. . Total Minutes: 10 Zachery Jerome Jul 21, 2016 08:10
[2016-07-21] MEDS ORDERED: DIVALPROEX DR 500 MG TABEC PO SCH (09:00)
--- NOTE | 2016-08-16 20:35 | PD ---
Data Data Orders Electrocardiogram (07/14/16 ) Complete Blood Count With Diff (07/14/16 18:12) Blood Glucose (07/14/16 18:12) Ecg Monitoring (07/14/16 18:12) Iv Access Insert/Monitor (07/14/16 18:12) Oximetry (07/14/16 18:12) Comprehensive Metabolic Panel (07/14/16 18:12) Sodium Chlor 0.9% 1000 Ml Inj (Ns 1000 M (07/14/16 18:12) Sodium Chloride 0.9% Flush (Ns Flush) (07/14/16 18:15) Ua Includes Microscopic (07/14/16 18:12) Drug Screen, Random Urine (07/14/16 18:12) Creatine Kinase (Cpk) (07/14/16 18:16) Lorazepam Inj (Ativan Inj) (07/14/16 18:19) Lorazepam Inj (Ativan Inj) (07/14/16 18:22) Ct Brain W/O Iv Contrast(Rout) (07/14/16 18:26) Lorazepam Inj (Ativan Inj) (07/14/16 18:30) Levetiracetam 1000 Mg Inj (Keppra 1000 M (07/14/16 18:45) Sodium Chlor 0.9% 1000 Ml Inj (Ns 1000 M (07/14/16 18:45) Lorazepam Inj (Ativan Inj) (07/14/16 19:15) Fosphenytoin Inj (Cerebyx Inj) (07/14/16 19:30) Dexamethasone Inj (Decadron Inj) (07/14/16 19:15) Admit To Inpatient (07/14/16 ) Code Status (07/14/16 19:27) Vital Signs (Adult) Q4H (07/14/16 19:27) Intake + Output 06,14,22 (07/14/16 19:27) Sodium Chlor 0.9% 1000 Ml Inj (Ns 1000 M (07/14/16 20:00) Sodium Chloride 0.9% Flush (Ns Flush) (07/14/16 21:00) Sodium Chloride 0.9% Flush (Ns Flush) (07/14/16 19:30) Pantoprazole Inj (Protonix Inj) (07/15/16 09:00) Basic Metabolic Panel (Bmp) (07/14/16 19:27) Prothrombin Time / Inr (Pt) (07/14/16 19:27) Act Partial Throm Time (Ptt) (07/14/16 19:27) Hepatic Functional Panel (07/14/16 19:27) Infrastructure Administrator / Telemetry (07/14/16 19:27) Scd Bilateral/Knee High LAZARO.QSHIFT (07/14/16 19:27) Inpatient Certification (07/14/16 ) Mri Brain W&W/O Contrast (07/14/16 19:33) Phenytoin (Dilantin) (07/15/16 06:00) Basic Metabolic Panel (Bmp) (07/15/16 06:00) Magnesium (Mg) (07/15/16 06:00) Chest, Single Ap (07/14/16 ) Fosphenytoin Inj (Cerebyx Inj) (07/15/16 08:00) Dexamethasone Inj (Decadron Inj) (07/15/16 02:00) Admit Order (Ed Use Only) (07/14/16 21:24) [facility] Medical Record Reviewed: Yes Supervised Visit with SAMIA: No Narrative Course Please refer to outgoing provider note. Pt has R parietal mass with 5-6mm right to left midline shift on CT. Second seizure observed in ED, ativan given and seizure resolved. Cerebryx started. Decadron started. Pt hemodynamically stable at time of admission. Airway protected. Case d/w Dr Jerome for neurosurgery who will admit pt. Diagnosis Primary Impression: Neoplasm of brain causing mass effect on adjacent structures Additional Impression: Seizure Admitting Information Admitting Physician Requests: Admit Scripts No Active Prescriptions or Reported Meds Mark Cornejo MD Aug 16, 2016 20:35
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
== END 2016-07-21 07:57 | disposition left against medical advice (07) | DRG 55 ==
LOC: NEPE 18:06 → NEDA 21:25 → HIME 07-15 00:05 → N05B 07-16 17:32
PROVIDERS: ADMIT Neurological Surgery; ATTEND Neurological Surgery
DX: D42.0 Neoplasm of uncertain behavior of cerebral meninges (principal); G40.89 Other seizures; F14.10 Cocaine abuse, uncomplicated; F17.210 Nicotine dependence, cigarettes, uncomplicated; G93.9 Disorder of brain, unspecified; F19.10 Other psychoactive substance abuse, uncomplicated; Z51.5 Encounter for palliative care; Z53.9 Procedure and treatment not carried out, unspecified reason; F94.0 Selective mutism; G47.00 Insomnia, unspecified; F41.9 Anxiety disorder, unspecified; Z86.14 Personal history of Methicillin resistant Staphylococcus aureus infection
CPT/HCPCS: 70450; 70553; 71010; 80048; 80053; 80076; 80185; 80307; 81001; 82550; 83735; 85025; 85610; 85730; 86850; 86900; 86901; 87641; 93005; 96361; 96374; 96375; A9579; C9113; J1100; J2060; J7030; Q2009

== ENCOUNTER 2017-05-01 12:04 | Emergency (ER) | payer SELFPAY ==
[2017-05-01 12:13] VITALS: BP 141/92; PULSE 85; RESP 16; TEMP 98.7; O2SAT 100
[2017-05-01] MEDS ORDERED: SODIUM CHLOR 0.9% 1000 ML INJ 1,000 ML IV ONE (12:20)
[2017-05-01] MEDS ORDERED: SODIUM CHLORIDE 0.9% FLUSH 10 ML FLUSH IVF PRN (12:30)
--- NOTE | 2017-05-01 12:51 | RADRPT ---
EXAM DATE/TIME: 05/01/2017 12:29 [facility] COMPARISON: MRI BRAIN W & W/O CONTRAST, July 14, 2016, 21:15. CT BRAIN W/O CONTRAST, July 14, 2016, 18: 49. INDICATIONS : Seizure. RADIATION DOSE: 56.35 CTDIvol (mGy) MEDICAL HISTORY : Seizures. Brain tumor. SURGICAL HISTORY : None. ENCOUNTER: Initial ACUITY: 1 day PAIN SCALE: 0/10 LOCATION: Bilateral cranial TECHNIQUE: Multiple contiguous axial images were obtained of the head. Using automated exposure control and adj ustment of the mA and/or kV according to patient size, radiation dose was kept as low as reasonably a chievable to obtain optimal diagnostic quality images. DICOM format image data is available electro nically for review and comparison. FINDINGS: CEREBRUM: Has been a significant increase in the size of the extra-axial mass in the right parieto-occipital re gion with a new area of extension anteriorly. The AP dimension of the mass is 7.2 cm (previously was 4.8 cm. The width of the mass is 5.3 cm, stable from prior. There is right hemispheric mass effect with subfalcine herniation and 6 mm midline shift (prior midline shift measures 4 mm). There is eff acement of the body and occipital horn of the right ventricle. The mass has similar imaging characte ristics on noncontrast CT being uniformly hyperdense. 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 POSTERIOR FOSSA: The cerebellum and brainstem are intact. The 4th ventricle is midline. The cerebellopontine angle i s unremarkable. EXTRACRANIAL: The visualized portion of the orbits is intact. SKULL: The calvaria is intact. No evidence of skull fracture. CONCLUSION: Significant increase in the size of the right parieto-occipital extra-axial mass, now measuring 7.2 c m in AP dimension and with increase in amount of midline shift towards the left, measures 6 mm on sulma kidd's exam. Pasha Tyson MD on May 01, 2017 at 12:45 Board Certified Radiologist. This report was verified electronically.
[2017-05-01] MEDS ORDERED: LEVE500 PO (13:24)
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
[2017-05-01] MEDS ORDERED: levETIRAcetam INJ 100 ML IV ONE (13:30)
[2017-05-01] MEDS ORDERED: levETIRAcetam 500 MG TAB PO ONE (13:30)
== END 2017-05-01 13:39 | disposition left against medical advice (07) ==
LOC: NEPD 12:04
DX: G40.409 Other generalized epilepsy and epileptic syndromes, not intractable, without status epilepticus (principal); G93.89 Other specified disorders of brain
CPT/HCPCS: 70450; 99285

== ENCOUNTER 2017-05-11 08:43 | Emergency (ER) | payer OTHER ==
[~2017-05-11] VITALS: Ht 182.9 cm; Wt 70.0 kg
[~2017-05-11 08:43] MED LIST changes: -BACT800T5 PO; -CEPH500C3 PO; +LEVE500 PO
[2017-05-11 08:53] VITALS: BP 122/72; PULSE 75; RESP 17; O2SAT 100
--- NOTE | 2017-05-11 09:04 | PD ---
HPI Chief Complaint: Medical Clearance Time Seen by Provider: 08:52 Travel History International Travel<30 days: No Contact w/Intl Traveler<30days: No Traveled to known affect area: No History of Present Illness HPI 31-year-old male patient with history of brain tumor that is post to be surgically removed, seizures currently on Keppra, presents to the ER today because he is with PD and here for medical clearance. He states that he has intermittent headaches, unchanged from prior, but has not had any further seizures since being on Keppra. He denies any new neurological symptoms. He had left AMA twice before for this issue. Modifying Factors: None Associated Signs & Symptoms: Brain tumor, medical evaluation Risk Factors: History of seizures and brain tumor PFSH Past Medical History Diminished Hearing: No Neurologic: Yes (brain mass per pt) Seizures: Yes Tetanus Vaccination: < 5 Years ?: Not Past Surgical History Surgical History: No Previous Surgery Other Surgery: No Social History Alcohol Use: No Tobacco Use: Yes (1 PPD) Substance Use: Yes (dilaudid) Allergies-Medications (Allergen,Severity, Reaction): Coded Allergies: penicillin G (Verified Allergy, Mild, 05/11/17) *MDRO Multi-Drug Resistant Organism (Verified Allergy, Unknown, 05/01/17) MRSA 2013 Reported Meds & Prescriptions Reported Meds & Active Scripts Active Keppra (Levetiracetam) 500 Mg Tab 500 Mg PO BID Review of Systems Except as stated in HPI: all other systems reviewed are Neg Physical Exam Narrative GENERAL: Well-developed young white male patient currently none acute distress. Awake and oriented 3. SKIN: Focused skin assessment warm/dry. HEAD: Atraumatic. Normocephalic. EYES: Pupils equal and round. No scleral icterus. No injection or drainage. ENT: No nasal bleeding or discharge. Mucous membranes pink and moist. NECK: Trachea midline. No JVD. CARDIOVASCULAR: Regular rate and rhythm. No murmur appreciated. RESPIRATORY: No accessory muscle use. Clear to auscultation. Breath sounds equal bilaterally. GASTROINTESTINAL: Abdomen soft, non-tender, nondistended. Hepatic and splenic margins not palpable. MUSCULOSKELETAL: No obvious deformities. No clubbing. No cyanosis. No edema. NEUROLOGICAL: Awake and alert. No obvious cranial nerve deficits. Motor grossly within normal limits. Normal speech. PSYCHIATRIC: Appropriate mood and affect; insight and judgment normal. Data Data Last Documented VS Vital Signs Date Time Temp Pulse Resp B/P (MAP) Pulse Ox O2 Delivery O2 Flow Rate FiO2 05/11/17 08:53 75 17 122/72 (89) [address] Brain W/O Iv Contrast(Rout) (05/11/17 08:52) Ed Discharge Order (05/11/17 10:03) MDM Medical Decision Making Medical Screen Exam Complete: Yes Emergency Medical Condition: Yes Medical Record Reviewed: Yes Interpretation(s) Last [address] 05/11/17 0852 Signed Impressions: Service Date/Time: Thursday, May 11, 2017 09:13 - CONCLUSION: 1. 6 cm extra-axial right parietal mass characteristic of meningioma. No acute findings are present Glenn Robins MD Differential Diagnosis Brain tumor, medical evaluation Narrative Course Patient has no further neurological symptoms or seizures. He is here for medical clearance brought in by PD. He had signed out AMA for his brain mass twice before, had been seen by Dr. Jerome for this issue and had been recommended for surgery, states that he does not want to get anything done right now because he is under arrest and will get out next week, once his family to be there when he can get that surgery done, once emotional support. CAT scan was done which did not show any signs of acute changes. At this point , I have had an extensive conversation with him regarding the seriousness of his condition, that he could have herniation of his brain at any time, bleeding at any time, and have further neurological deficits, permanent disability, paralysis, brain , , as possible outcomes. Patient states understanding, is refusing to get anything done at this time but states he will return next week. I have talked and the fact that I cannot guarantee that none of this will happen by next week. Patient once again states understanding and still refusing any further treatment. He will be signing out AGAINST MEDICAL ADVICE. He is awake, alert, oriented, states understanding of my warnings, and is able to make his own decisions. He is not suicidal or homicidal. He states that he wants to get treated but wants to make sure that his family can be to give him emotional support. She should return at any time he makes that physician to get treated. AMA: The risks of leaving against medical advice without further evaluation treatment were discussed with the patient. These risks include cardiac dysfunction, cardiac dysrhythmia, possible heart attack, possible stroke or . The patient indicated understanding of these risks and appeared to have the capacity to make this decision. Diagnosis Primary Impression: Mass, brain Additional Instructions: Come back to the ER if you change your mind. Or see a neurosurgeon as soon as possible. Return for any further seizures, numbness, weakness, difficulty talking, difficulty walking, or any new symptoms. Disposition: 07 AGAINST MEDICAL ADVICE Condition: Stable Samantha Butler MD May 11, 2017 09:04
--- NOTE | 2017-05-11 09:46 | RADRPT ---
EXAM DATE/TIME: 05/11/2017 09:13 [facility] COMPARISON: MRI BRAIN W & W/O CONTRAST, July 14, 2016, 21:15. CT BRAIN W/O CONTRAST, May 01, 2017, 12: 29. INDICATIONS : Cephalgia with history of brain mass. RADIATION DOSE: 56.35 CTDIvol (mGy) MEDICAL HISTORY : Seizures. Brain mass SURGICAL HISTORY : None. ENCOUNTER: Initial ACUITY: 1 day PAIN SCALE: 5/10 LOCATION: Bilateral cranial TECHNIQUE: Multiple contiguous axial images were obtained of the head. Using automated exposure control and adj ustment of the mA and/or kV according to patient size, radiation dose was kept as low as reasonably a chievable to obtain optimal diagnostic quality images. DICOM format image data is available electro nically for review and comparison. FINDINGS: There is a 5.8 x 4.6 cm hyperdense extra-axial mass in the right parietal region characteristic of me ningioma. The findings are similar to the prior exam. There is mass effect and midline shift of 5-6 m m but no signs of herniation. There is no significant surrounding vasogenic edema. No acute hemorrhag e is seen. Posterior fossa structures are unremarkable. CONCLUSION: 1. 6 cm extra-axial right parietal mass characteristic of meningioma. No acute findings are present Glenn Robins MD on May 11, 2017 at 9:41 Board Certified Radiologist. This report was verified electronically.
== END 2017-05-11 10:44 | disposition left against medical advice (07) ==
LOC: NEPE 08:43
DX: G93.9 Disorder of brain, unspecified (principal)
CPT/HCPCS: 70450; 99284

== ENCOUNTER 2017-05-14 13:37 | Emergency (ER) | payer SELFPAY ==
[~2017-05-14] VITALS: Ht 182.9 cm; Wt 72.0 kg
[2017-05-14 13:39] VITALS: BP 153/88; PULSE 79; RESP 16; TEMP 98.4; O2SAT 100
[2017-05-14 15:26] VITALS: BP 127/73; PULSE 87; RESP 18; TEMP 97.6; O2SAT 100
--- NOTE | 2017-05-14 16:03 | PD ---
HPI Chief Complaint: Headache Time Seen by Provider: 15:07 Travel History International Travel<30 days: No Contact w/Intl Traveler<30days: No Traveled to known affect area: No History of Present Illness HPI This patient has visited the ER a few times. He has a known right occipital brain mass which appears to be extra-axial accord prior to her palpitations concerning for meningioma. It has nonetheless increased in size. The patient has seized. He was recently discharged from longterm with instructions to establish neurosurgery follow-up and undergo a tumor resection. He reports to the ER offering the aforementioned history. He has no headache or weakness. No vomiting. He has had no acute change in symptoms. He reports he was taking Keppra for some time with good effect however upon cessation of using medications several weeks ago had a few seizures which have not recurred since probably reinitiating Keppra maintenance. PFSH Past Medical History Diminished Hearing: No Neurologic: Yes (brain mass per pt) Seizures: Yes Influenza Vaccination: No Past Surgical History Surgical History: No Previous Surgery Other Surgery: No Social History Alcohol Use: No Tobacco Use: Yes (1 PPD) Substance Use: Yes (dilaudid MARIJUANA, COCAINE) Allergies-Medications (Allergen,Severity, Reaction): Coded Allergies: penicillin G (Verified Allergy, Mild, 05/14/17) *MDRO Multi-Drug Resistant Organism (Verified Allergy, Unknown, 05/14/17) MRSA 2013 Reported Meds & Prescriptions Reported Meds & Active Scripts Active Phenergan (Promethazine HCl) 25 Mg Tablet 25 Mg PO Q6H PRN Keppra (Levetiracetam) 500 Mg Tab 500 Mg PO BID Review of Systems Except as stated in HPI: all other systems reviewed are Neg General / Constitutional: No: Fever Physical Exam Narrative GENERAL: 31-year-old male well-nourished well-developed pleasant SKIN: Focused skin assessment warm/dry. HEAD: Atraumatic. Normocephalic. EYES: Pupils equal and round. No scleral icterus. No injection or drainage. ENT: No nasal bleeding or discharge. Mucous membranes pink and moist. NECK: Trachea midline. No JVD. CARDIOVASCULAR: Regular rate and rhythm. No murmur appreciated. RESPIRATORY: No accessory muscle use. Clear to auscultation. Breath sounds equal bilaterally. GASTROINTESTINAL: Abdomen soft, non-tender, nondistended. Hepatic and splenic margins not palpable. MUSCULOSKELETAL: No obvious deformities. No clubbing. No cyanosis. No edema. NEUROLOGICAL: Awake and alert. No obvious cranial nerve deficits. Motor grossly within normal limits. Normal speech. PSYCHIATRIC: Appropriate mood and affect; insight and judgment normal. Data Data Last Documented VS Vital Signs Date Time Temp Pulse Resp B/P (MAP) Pulse Ox O2 Delivery O2 Flow Rate FiO2 05/14/17 16:37 127/73 (91) 05/14/17 15:26 97.6 87 18 100 Room Air Vital signs reviewed Orders Orders Mandatory Outpatient Referral (05/14/17 15:47) Ed Discharge Order (05/14/17 15:47) [facility] Medical Decision Making Medical Screen Exam Complete: Yes Emergency Medical Condition: Yes Medical Record Reviewed: Yes Differential Diagnosis brain mass, seizure, herniation Narrative Course Patient has a known brain mass. He has no acute symptoms. Mass is several months old at least. I spoke with Dr. Cronin of neurosurgery. I spoke with case management. Mandatory referral placed. No emergency neurosurgical intervention required. Provided reliable and prompt follow up pt ok for discharge. Case d/w with patient and family at length and all are in agreement. Diagnosis Primary Impression: Mass, brain Referrals: Neurosurgeon Additional Instructions: A MANDATORY OUTPATIENT REFERRAL HAS BEEN ORDERED AND THE PATIENT WILL BE SEEN BY NEUROSURGERY EARLY THE WEEK OF May. SURGERY WILL BE PLANNED ACCORDINGLY AFTER PATIENT IS SEEN BY NEUROSURGEON, LIKELY LATER IN THE WEEK. PT AWARE OF AND AMENABLE WITH PLAN, WHICH WAS DISCUSSED AT 403PM WITH PATIENT AND FAMILY IN GREAT DETAIL. CASE MANAGEMENT ALSO SPOKE WITH PATIENT. Med/Other Pt SpecificInfo: No Change to Meds Scripts Promethazine (Phenergan) 25 Mg Tablet 25 MG PO Q6H Y for HEADACHE, #20 TAB 0 Refills Prov: Mark Cornejo MD 05/14/17 Disposition: 01 DISCHARGE HOME Condition: Stable Mark Cornejo MD May 14, 2017 16:03
[2017-05-14] MEDS ORDERED: PROM25TA10 PO (16:35)
[2017-05-14 16:37] VITALS: BP 127/73
== END 2017-05-14 16:38 | disposition home or self-care (01) ==
LOC: NEPE 13:37
DX: G93.9 Disorder of brain, unspecified (principal); F17.200 Nicotine dependence, unspecified, uncomplicated
CPT/HCPCS: 99283

== ENCOUNTER 2017-06-09 07:06 | Inpatient (IN) | payer SELFPAY ==
[~2017-06-09] VITALS: Ht 182.9 cm; Wt 65.5 kg
[~2017-06-09 07:06] MED LIST changes: +PROM25TA10 PO
[2017-06-09 07:58] VITALS: BP 109/71; PULSE 68; RESP 20; TEMP 97.2; O2SAT 99
[2017-06-09] MEDS ORDERED: ONDANSETRON HCL 4 MG/2 ML VIAL IV PUSH PRN ×2 (08:45→09:45)
[2017-06-09] MEDS ORDERED: PROMETHAZINE HCL 25 MG TAB PO PRN (08:45)
--- NOTE | 2017-06-09 08:54 | HHI.HP ---
(Karrie Shell) [facility] Service Neurosurgery Primary Care Physician No Primary Care Physician Chief Complaint: Brain Mass History of Present Illness Mr. Dunn is a 31 year old male with history of large right parietal meningioma found on an MRI Brain obtained previously at [place]. He was evaluated previously by Neurosurgeon Dr. Jerome who recommended surgical resection as the patient was having recurrent seizures. Unfortunately the patient did not proceed with surgery then. He has been managing his seizures with Keppra. He ran out of his medication and suffered a breakthrough seizure recently and was seen at [place] ED. He has now receive new prescription for his seizure medications and has not had any further seizures since he was discharged from the emergency room. He is admitted today for cerebral angiogram and for resection of brain mass tomorrow. (Karrie Shell) Review of Systems Constitutional: DENIES: Fever, Chills Eyes: DENIES: Diplopia, Vision loss, Double Vision Respiratory: DENIES: Hemoptysis, Shortness of breath Cardiovascular: DENIES: Chest pain Gastrointestinal: DENIES: Nausea, Vomiting Genitourinary: DENIES: Urinary incontinence Musculoskeletal: DENIES: Joint pain, Back pain, Neck pain Neurologic: COMPLAINS OF: Seizures, DENIES: Abnormal gait, Localized weakness, Paresthesias, Poor Balance Psychiatric: DENIES: Hallucinations (Karrie Shell) Past Family Social History Allergies: Coded Allergies: penicillin G (Verified Allergy, Mild, 05/24/17) *MDRO Multi-Drug Resistant Organism (Verified Allergy, Unknown, 05/24/17) MRSA 2013 Past Medical History Seizures Brain Mass - meningioma Past Surgical History None Reported Medications Keppra 500mg q12 hours Active Ordered Medications Current Medications Medications (Trade) Dose Ordered Sig/Cliff Route PRN Reason Start Time Stop Time Status Last Admin Dose Admin Levetriacetam (Keppra) 500 mg BID PO 06/09/17 09:00 Ondansetron HCl (Zofran Inj) 4 mg Q8H PRN IV PUSH NAUSEA OR VOMITING 06/09/17 08:45 Pantoprazole Sodium (Protonix) 40 mg DAILY PO 06/09/17 09:00 Pantoprazole Sodium (Protonix Inj) 40 mg DAILY IV PUSH 06/09/17 09:00 Promethazine HCl (Phenergan) 25 mg Q6H PRN PO HEADACHE 06/09/17 08:45 UNV Lorazepam (Ativan Inj) 1 mg Q2H PRN IV PUSH seizures 06/09/17 09:00 UNV Family History Not known Social History Works in [employer], positive tobacco 1ppd (Karrie Shell) Physical Exam Vital Signs Vital Signs Date Time Temp Pulse Resp B/P (MAP) Pulse Ox O2 Delivery O2 Flow Rate FiO2 06/09/17 07:58 97.2 68 20 109/71 (84) 99 Physical Exam Mr. Dunn is alert, awake and oriented to time, place and person. Speech is fluent. Follows commands well. Cranial nerve examination demonstrates the pupils to be equal, round, and reactive to light. Extra-ocular movements are intact. Facial motor and sensory function are normal and symmetrical. Gross hearing is intact, bilaterally. The uvula is midline and elevates symmetrically with the soft palate. Sternocleidomastoid and trapezius muscles have normal and symmetrical strength. Other cranial nerves are intact. Neck is soft and supple. Muscle testing reveals normal bulk and tone overall without rigidity, spasticity , fasciculations, or atrophy. Muscle strength is 5/5 in all muscle groups of both upper extremities including deltoid, biceps, triceps, and bioinformaticist. In the lower extremities, strength is 5/5 in both iliopsoas, quadriceps, hamstrings, plantar flexion, dorsiflexion. Sensory examination is intact to light touch in both the upper and lower extremities, symmetrically. Deep tendon reflexes are 2+ and symmetrical in the biceps, triceps, and brachioradialis, bilaterally, in the upper extremities. In the lower extremities , the patellar and Achilles are 2+, bilaterally. There is a bilateral plantar flexion response. Hoffmanns sign is negative. There is no clonus or other abnormal reflexes noted. Cerebellar examination is intact to [id number] test. Gait: ambulates with normal length of stride and width of stance. CARDIOVASCULAR: Regular rate and rhythm without murmurs, gallops, or rubs. RESPIRATORY: Clear to auscultation. Breath sounds equal bilaterally. No wheezes , rales, or rhonchi. GASTROINTESTINAL: Abdomen soft, non-tender, nondistended. No hepato-splenomegaly , or palpable masses. No guarding. (Karrie Shell) Physical Exam Mr. Dunn is alert, awake and oriented to time, place and person. Speech is fluent. Follows commands well. Cranial nerve examination demonstrates the pupils to be equal, round, and reactive to light. Extra-ocular movements are intact. Facial motor and sensory function are normal and symmetrical. Gross hearing is intact, bilaterally. The uvula is midline and elevates symmetrically with the soft palate. Sternocleidomastoid and trapezius muscles have normal and symmetrical strength. Other cranial nerves are intact. Neck is soft and supple. Muscle testing reveals normal bulk and tone overall without rigidity, spasticity , fasciculations, or atrophy. Muscle strength is 5/5 in all muscle groups of both upper extremities including deltoid, biceps, triceps, and bioinformaticist. In the lower extremities, strength is 5/5 in both iliopsoas, quadriceps, hamstrings, plantar flexion, dorsiflexion. Sensory examination is intact to light touch in both the upper and lower extremities, symmetrically. Deep tendon reflexes are 2+ and symmetrical in the biceps, triceps, and brachioradialis, bilaterally, in the upper extremities. In the lower extremities , the patellar and Achilles are 2+, bilaterally. There is a bilateral plantar flexion response. Hoffmanns sign is negative. There is no clonus or other abnormal reflexes noted. Cerebellar examination is intact to [id number] test. (Wu Gant MD) Imaging CT Brain 05/11/17 [facility] FINDINGS: There is a 5.8 x 4.6 cm hyperdense extra-axial mass in the right parietal region characteristic of meningioma. The findings are similar to the prior exam. There is mass effect and midline shift of 5-6 mm but no signs of herniation. There is no significant surrounding vasogenic edema. No acute hemorrhage is seen. Posterior fossa structures are unremarkable. (Karrie Shell) Imaging Last 48 hours Impressions Chest X-Ray 06/09/17 0000 Signed Impressions: Service Date/Time: June 08:17 - CONCLUSION: 1. No acute cardiopulmonary disease. Glenn Robins MD CT Brain 05/11/17 [facility] FINDINGS: There is a 5.8 x 4.6 cm hyperdense extra-axial mass in the right parietal region characteristic of meningioma. The findings are similar to the prior exam. There is mass effect and midline shift of 5-6 mm but no signs of herniation. There is no significant surrounding vasogenic edema. No acute hemorrhage is seen. Posterior fossa structures are unremarkable. (Wu Gant MD) Caprini VTE Risk Assessment Caprini VTE Risk Assessment: No/Low Risk (score <= 1) VTE Pharm Contraindication: Preop Caprini Risk Assessment Model Point Value = 1 Point Value = 2 Point Value = 3 Point Value = 5 Age 41-60 Minor surgery BMI > 25 kg/m2 Swollen legs Varicose veins or History of unexplained or recurrent spontaneous Oral contraceptives or hormone replacement Sepsis (< 1 month) Serious lung disease, including pneumonia (< 1 month) Abnormal pulmonary function Acute myocardial infarction Congestive heart failure (< 1 month) History of inflammatory bowel disease Medical patient at bed rest Age 61-74 Arthroscopic surgery Major open surgery (> 45 min) Laparoscopic surgery (> 45 min) Malignancy Confined to bed (> 72 hours) Immobilizing plaster cast Central venous access Age >= 75 History of VTE Family history of VTE Factor V Leiden Prothrombin [id number] Lupus anticoagulant Anticardiolipin antibodies Elevated serum homocysteine Heparin-induced thrombocytopenia Other congenital or acquired thrombophilia Stroke (< 1 month) Elective arthroplasty Hip, pelvis, or leg fracture Acute spinal cord injury (< 1 month) Prophylaxis Regimen Total Risk Factor Score Risk Level Prophylaxis Regimen 0-1 Low Early ambulation 2 Moderate Order ONE of the following: *Sequential Compression Device (SCD) *Heparin 5000 units SQ BID 3-4 Higher Order ONE of the following medications: *Heparin 5000 units SQ TID *Enoxaparin/Lovenox 40 mg SQ daily (WT < 150 kg, CrCl > 30 mL/min) *Enoxaparin/Lovenox 30 mg SQ daily (WT < 150 kg, CrCl > 10-29 mL/min) *Enoxaparin/Lovenox 30 mg SQ BID (WT < 150 kg, CrCl > 30 mL/min) AND/OR *Sequential Compression Device (SCD) 5 or more Highest Order ONE of the following medications: *Heparin 5000 units SQ TID (Preferred with Epidurals) *Enoxaparin/Lovenox 40 mg SQ daily (WT < 150 kg, CrCl > 30 mL/min) *Enoxaparin/Lovenox 30 mg SQ daily (WT < 150 kg, CrCl > 10-29 mL/min) *Enoxaparin/Lovenox 30 mg SQ BID (WT < 150 kg, CrCl > 30 mL/min) AND *Sequential Compression Device (SCD) (Karrie Shell) Assessment and Plan Assessment and Plan Mr. Dunn is suffering from recurrent seizures due to a large meningioma. Mr. Dunn's clinical and radiological findings were previously reviewed and had discussed the possibility of surgical resection with a stereotactic image guided right parietal occipital craniotomy with resection of the mass. The mass has characteristic consistent with meningioma. Meningiomas are usually benign tumors which have a tendency of growing very slowly. In some patients, they can present with symptoms of mass effect or they can develop epileptic seizures. Sometimes, the tumors can suffer a malignant transformation, however this is extremely rare. In many patients do not grow significantly in size. The alternatives of conservative follow up versus a surgical resection were discussed with the patient. We have discussed the details including the [id number] details of the surgical procedure, its indications, alternatives, risks, and potential complications. Risks and potential complications include, but are not limited to, infection, blood loss, CSF leak, partial or complete loss of sight in one or both eyes, paresis, paralysis, permanent pain or difficulty swallowing, loss of bowel or bladder function, complications from anesthesia, blood clot, stroke , myocardial infarction, or even . He will undergo cerebral angiography today with possible embolization of brain mass. To OR tomorrow for craniotomy for resection of brain mass. Regular Diet, NPO tonight after midnight for surgery tomorrow SCDs and TEDs for dvt prophylaxis Protonix for stress ulcer prophylaxis Renal: BUN and Creatinine Seizures: Continue Keppra 500 q 12 hours. Seizure precautions. Ativan prn seizures. Mr Dunn understands. All his questions were answered. No guaranties were given (Karrie Shell) Assessment and Plan Caprini VTE Risk Assessment Caprini VTE Risk Assessment Caprini VTE Risk Assessment: No/Low Risk (score <= 1) VTE Pharm Contraindication: Preop Caprini Risk Assessment Model Point Value = 1 Point Value = 2 Point Value = 3 Point Value = 5 Age 41-60 Minor surgery BMI > 25 kg/m2 Swollen legs Varicose veins or History of unexplained or recurrent spontaneous Oral contraceptives or hormone replacement Sepsis (< 1 month) Serious lung disease, including pneumonia (< 1 month) Abnormal pulmonary function Acute myocardial infarction Congestive heart failure (< 1 month) History of inflammatory bowel disease Medical patient at bed rest Age 61-74 Arthroscopic surgery Major open surgery (> 45 min) Laparoscopic surgery (> 45 min) Malignancy Confined to bed (> 72 hours) Immobilizing plaster cast Central venous access Age >= 75 History of VTE Family history of VTE Factor V Leiden Prothrombin [id number] Lupus anticoagulant Anticardiolipin antibodies Elevated serum homocysteine Heparin-induced thrombocytopenia Other congenital or acquired thrombophilia Stroke (< 1 month) Elective arthroplasty Hip, pelvis, or leg fracture Acute spinal cord injury (< 1 month) Prophylaxis Regimen Total Risk Factor Score Risk Level Prophylaxis Regimen 0-1 Low Early ambulation 2 Moderate Order ONE of the following: *Sequential Compression Device (SCD) *Heparin 5000 units SQ BID 3-4 Higher Order ONE of the following medications: *Heparin 5000 units SQ TID *Enoxaparin/Lovenox 40 mg SQ daily (WT < 150 kg, CrCl > 30 mL/min) *Enoxaparin/Lovenox 30 mg SQ daily (WT < 150 kg, CrCl > 10-29 mL/min) *Enoxaparin/Lovenox 30 mg SQ BID (WT < 150 kg, CrCl > 30 mL/min) AND/OR *Sequential Compression Device (SCD) 5 or more Highest Order ONE of the following medications: *Heparin 5000 units SQ TID (Preferred with Epidurals) *Enoxaparin/Lovenox 40 mg SQ daily (WT < 150 kg, CrCl > 30 mL/min) *Enoxaparin/Lovenox 30 mg SQ daily (WT < 150 kg, CrCl > 10-29 mL/min) *Enoxaparin/Lovenox 30 mg SQ BID (WT < 150 kg, CrCl > 30 mL/min) AND *Sequential Compression Device (SCD) (Wu Gant MD) Attending Statement large meningioma. I again reviewed Mr. Dunn's clinical and radiological findings. I again discussed the possibility of surgical resection with a stereotactic image guided right parietal occipital craniotomy with resection of the mass. The mass has characteristic consistent with meningioma. I have ordered a cerebral angiography with possible embolization of the tumor. I again discussed with him the details including the [id number] details of the surgical procedure, its indications, alternatives, risks, and potential complications. Risks and potential complications include, but are not limited to, infection, blood loss, CSF leak, partial or complete loss of sight in one or both eyes, paresis, paralysis, permanent pain or difficulty swallowing, loss of bowel or bladder function, complications from anesthesia, blood clot, stroke , myocardial infarction, or even . She understands the risks of hemiparesis or a venous infarction due the large size of the tumor NPO tonight after midnight for surgery tomorrow Renal: BUN and Creatinine Seizures: Continue Keppra 500 q 12 hours. Seizure precautions. Ativan prn seizures. Mr Dunn understands. All his questions were answered. No guaranties were given Protonix for prophylaxis of stress ulcer RITU hose and sequential compression devices for DVT prophylaxis (Wu Gant MD) Karrie Shell Jun 09, 2017 08:54 Wu Gant MD Jun 09, 2017 15:45
[2017-06-09] MEDS: PANTOPRAZOLE SODIUM 40 MG VIAL IV PUSH SCH (09:00)
[2017-06-09] MEDS ORDERED: LORazepam 2 MG/ML VIAL IV PUSH PRN (09:00)
[2017-06-09] MEDS: PANTOPRAZOLE SOD 40 MG DELAYED RELEASE TAB PO SCH (09:04)
[2017-06-09] MEDS: levETIRAcetam 500 MG TAB PO SCH ×2 (09:04→20:12)
--- NOTE | 2017-06-09 09:32 | RADRPT ---
EXAM DATE/TIME: 06/09/2017 08:17 [facility] COMPARISON: CHEST SINGLE AP, July 14, 2016, 18:14. INDICATIONS : Evaluate for pneumothorax, pneumonia, or communicable disease. Preop chest for crainiotomy today MEDICAL HISTORY : seizure, brain mass SURGICAL HISTORY : None. ENCOUNTER: Initial ACUITY: 2 days PAIN SCORE: 0/10 LOCATION: Bilateral chest FINDINGS: A single view of the chest demonstrates the lungs to be symmetrically aerated without evidence of mas s, infiltrate or effusion. The cardiomediastinal contours are unremarkable. Osseous structures are intact. CONCLUSION: 1. No acute cardiopulmonary disease. Glenn Robins MD on June 09, 2017 at 9:27 Board Certified Radiologist. This report was verified electronically.
[2017-06-09] MEDS ORDERED: MENTHOL LOZENGE BUCCAL PRN (09:45)
[2017-06-09] MEDS ORDERED: CYCLOBENZAPRINE HCL 10 MG TAB PO PRN (09:45)
[2017-06-09] MEDS ORDERED: ACETAMINOPHEN/HYDROcodone 325 MG/10 MG TAB PO PRN (09:45)
[2017-06-09] MEDS ORDERED: ACETAMINOPHEN 325 MG TAB PO PRN (09:45)
[2017-06-09] MEDS ORDERED: cloNIDine HCL 0.1 MG TAB PO/NG PRN (09:45)
[2017-06-09] MEDS ORDERED: RESP: ALBUTEROL 2.5 MG/3 ML NEB (PRN) INH (09:45)
[2017-06-09] MEDS ORDERED: MORPHINE SULFATE 2 MG/ML INJ IV PUSH PRN ×2 (11:00)
[2017-06-09 13:07] LABS: AUTOMATED NEUTROPHIL # 3.4 TH/MM3 (1.8-7.7); BASOPHIL % 0.6 % (0.0-2.0); EOSINOPHIL # 0.2 TH/MM3 (0-0.4); EOSINOPHIL % 2.4 % (0.0-4.0); HEMATOCRIT 38.9 % (39.0-51.0); HEMOGLOBIN 13.8 GM/DL (13.0-17.0); LYMPHOCYTE # 1.9 TH/MM3 (1.0-4.8); MEAN CELL VOLUME 90.4 FL (80.0-100.0); MEAN CORPUSCULAR HEMOGLOBIN 32.2 PG (27.0-34.0); MEAN CORPUSCULAR HGB CONC 35.6 % (32.0-36.0); MEAN PLATELET VOLUME 8.5 FL (7.0-11.0); MONO % 12.9 % (0.0-8.0); MONOCYTE # 0.8 TH/MM3 (0-0.9); NEUT % 54.1 % (16.0-70.0); PLATELET COUNT 261 TH/MM3 (150-450); RED CELL DISTRIBUTION WIDTH 13.9 % (11.6-17.2); WHITE BLOOD COUNT 6.2 TH/MM3 (4.0-11.0)
[2017-06-09 13:21] LABS: BICARBONATE 33.5 MEQ/L (21.0-32.0); CALCIUM 8.6 MG/DL (8.5-10.1); CREATININE 0.89 MG/DL (0.60-1.30)
[2017-06-09 13:31] LABS: INTERNATIONAL NORMALIZED RATIO 1.1 RATIO; PROTHROMBIN TIME - PATIENT 11.1 SEC (9.8-11.6)
[2017-06-09] MEDS: ACETAMINOPHEN/HYDROcodone 325 MG/10 MG TAB PO PRN (14:08)
[2017-06-09] MEDS ORDERED: MIDAZOLAM HCL 2 MG/2 ML VIAL ONE ×4 (14:35→15:50)
[2017-06-09] MEDS ORDERED: SODIUM CHLORIDE 0.9% INJ 10 ML ONE (15:42)
[2017-06-09] MEDS ORDERED: HEPARIN SODIUM - IV 10,000 UNITS/10 ML VIAL ONE (15:42)
[2017-06-09] MEDS ORDERED: LORazepam 2 MG/ML VIAL ONE (16:17)
[2017-06-09] MEDS ORDERED: HYDROmorphone HCL PF 2 MG/ML VIAL ONE (16:34)
[2017-06-09] MEDS ORDERED: IODIXANOL 320 MG/ML 50 ML VIAL (for RAD SPEC) I-ARTERIAL ONE (16:55)
[2017-06-09] MEDS ORDERED: NITROGLYCERIN 1000 MCG/5 ML VIAL OTHER ONE (17:00)
--- NOTE | 2017-06-09 17:15 | PD.RAD ---
Post Procedure Progress Note Pre Procedure Diagnosis: (1) Mass, brain Post Procedure Diagnosis: (1) Mass, brain Procedure Date: Jun 09, 2017 Supervising Radiologist: Glenn Robins Proceduralist/Assist: Arianna Hammond, RT(R), Kia Arzate RT(R)(CV) Anesthesia: Conscious Sedation Plan of Activity Patient to Unit: Nursing Unit Patient Condition: Good See PACS Report for procedural detail/treatment Vascular-Arterial Procedure Procedure 1 Procedure Site: Right Carotid Procedure(s): Angiogram, Embolization (middle meningeal artery) Access Access Site(s): Right Femoral Artery Closure Site(s): Right manual pressure Glenn Robins MD Jun 09, 2017 17:15
[2017-06-09 17:30] VITALS: BP 124/80; PULSE 74; RESP 14; TEMP 97.9; O2SAT 95
--- NOTE | 2017-06-09 17:48 | RADRPT ---
EXAM DATE/TIME: 06/09/2017 14:33 [facility] COMPARISON: No previous studies available for comparison. INDICATIONS : Patient with large right parietal meningioma. Pre surgical embolization. MEDICAL HISTORY : 1. Seizures 2. headaches 3. anxiety SURGICAL HISTORY : none reported ENCOUNTER: Initial ACUITY: 1 month PAIN SCORE: 0/10 FLUORO TIME: 49.5 minutes IMAGE SERIES: 24 ACCESS SITE: Right Femoral artery SEDATION TIME: 120 minutes CONTRAST: 155 cc Visipaque (iodixanol) MEDICATION(S): 1.) 7 mg midazolam (Versed) IV 2.) 2 mg hydromorphone (Dilaudid) IV 3.) 350 mcg fentanyl (Sublimaze) IV 4.) 1 mg lorazepam (Ativan) IV 5.) 150 mcg Nitroglycerine IV 6.) 5000 units Heparin IV DEVICE(S): 1.) Right common femoral artery syvek 2.) Right external carotid artery 355-500 PVA PROCEDURE : 1. Ultrasound-guided puncture of the access site. 2. Conscious sedation with continuous EKG and Oximetry monitoring. 3. Angiography of the left vertebral artery 4. Angiography of the right vertebral artery 5. Angiography of the left external carotid artery 6. Angiography of the left internal carotid artery 7. Angiography of the right internal carotid artery 8. Angiography of the right external carotid artery 9. Embolization of the right middle meningeal artery The risks, benefits and alternatives to the procedure were explained and verbal and written consent w as obtained. The site was prepped in sterile fashion. Full sterile technique was used, including ca p, mask, sterile gloves and gown and a large sterile sheet. Hand hygiene and 2% chlorhexidine and/or betadine/alcohol prep was utilized per protocol for cutaneous antisepsis. Sterile gel and sterile p robe cover were utilized for ultrasound guidance. The skin and subcutaneous tissues were infiltrated with local anesthetic solution. With ultrasound and fluoroscopic guidance the selected artery was punctured and a vascular sheath was placed Diagnostic angiography demonstrates slightly only the posterior division of the middle meningeal michele ry on the right. Examination of the intracranial circulation demonstrates a patent superior sagittal sinus area there is a very large draining vein at the posterior inferior aspect of neoplasm draining to the superior sagittal sinus. Embolization was performed with 300 500 PVA to complete stasis. The puncture site was closed with manual pressure and hemostasis was obtained. The patient tolerated the procedure well and there were no complications. Conscious sedation was performed with the prescribed dosages and duration as above in the presence of an independent trained radiology nurse to assist in the monitoring of the patient. EKG and oximetry remained stable throughout the procedure. CONCLUSION: 1. Uncomplicated embolization of meningioma in the right parietal region. 2. The superior sagittal sinus does demonstrate focal stenosis of the posterior aspect of neoplasm bu t is patent. Glenn Robins MD on June 09, 2017 at 17:40 Board Certified Radiologist. This report was verified electronically.
[2017-06-09] MEDS ORDERED: VANCOMYCIN INJ 1,000 MG in SODIUM CHLOR 0.9% 250 ML INJ 250 ML IV ONE (18:45)
[2017-06-09] MEDS: ALPRAZolam 0.5 MG TAB PO PRN (18:53)
[2017-06-09] MEDS: HYDROmorphone HCL PF 2 MG/ML VIAL IV PRN (18:53)
--- NOTE | 2017-06-09 18:54 | PD.CONS ---
[facility] Service Critical Care Medicine Consult Requested By Dr. Gant Reason for Consult Critical care management Primary Care Physician No Primary Care Physician History of Present Illness This is a 31-year-old male. Date of admission 06/09/2017. Date of consultation 06/09/2017. Past medical history includes history of a right parietal occipital brain mass likely meningioma, seizure disorder diagnosed 07/24 , tobaccoism and polysubstance use including hydromorphone, THC, cocaine and amphetamines. He also smokes 1 pack per day tobacco.. Patient has a history of a large right parietal meningioma found on an MRI Brain obtained previously at [facility]. He was evaluated previously by Neurosurgeon Dr. Jerome who recommended surgical resection as the patient was having recurrent seizures. Unfortunately the patient did not proceed with surgery in July 2016. He has been managing his seizures with levetiracetam. He ran out of his medication and suffered a breakthrough seizure recently and was seen at [facility] ED. He has now receive new prescription for his seizure medications and has not had any further seizures since he was discharged from the emergency room. He is admitted Dr. Gant CT Brain 05/11/17 [facility] - There is a 5.8 x 4.6 cm hyperdense extra-axial mass in the right parietal region characteristic of meningioma. The findings are similar to the prior exam. There is mass effect and midline shift of 5-6 mm but no signs of herniation. There is no significant surrounding vasogenic edema. No acute hemorrhage is seen. Posterior fossa structures are unremarkable Today, patient underwent embolization of the middle meningeal artery by Dr. Robins and iron without competition. Remains on levetiracetam 500 mg twice a day. He is planned for a stereotactic image guided right proximal craniotomy for excision of mass tomorrow 06/[address] Gatn. Currently resting in bed in no acute distress. No focal neurological deficits. Review of Systems Constitutional: COMPLAINS OF: Fatigue, DENIES: Fever, Weight gain Endocrine: DENIES: Polydipsia Eyes: DENIES: Blurred vision Ears, nose, mouth, throat: DENIES: Tinnitus Respiratory: DENIES: Apneas Cardiovascular: DENIES: Chest pain Gastrointestinal: DENIES: Abdominal pain Genitourinary: DENIES: Urgency Musculoskeletal: DENIES: Joint pain Integumentary: DENIES: Rash Hematologic/lymphatic: DENIES: Bruising Immunologic/allergic: DENIES: Eczema Neurologic: COMPLAINS OF: Headache, DENIES: Abnormal gait Psychiatric: COMPLAINS OF: Anxiety, DENIES: Confusion Past Family Social History Allergies: Coded Allergies: penicillin G (Verified Allergy, Mild, 05/24/17) *MDRO Multi-Drug Resistant Organism (Verified Allergy, Unknown, 05/24/17) MRSA 2013 Past Medical History Brain metastases likely meningioma Ongoing tobaccoism Polysubstance abuse Past Surgical History None Reported Medications Levetiracetam 500 mg twice a day Promethazine 25 mg every 6 hours when necessary nausea Active Ordered Medications Reviewed in EMR Family History Mother and father is not curative. Denies any history of heart disease, sudden , diabetes, hypertension Social History Positive tobacco 1 pack per day. Positive hydromorphone, THC, cocaine, amphetamine toxicology +07/24. No alcohol Physical Exam Vital Signs Vital Signs Date Time Temp Pulse Resp B/P (MAP) Pulse Ox O2 Delivery O2 Flow Rate FiO2 06/09/17 17:30 97.9 74 14 124/80 (95) 95 06/09/17 12:05 06/09/17 07:58 97.2 68 20 109/71 (84) 99 Physical Exam GENERAL: 31-year-old male resting in bed in no acute distress SKIN: Warm and dry. HEAD: Atraumatic. Normocephalic. EYES: Pupils equal and round. No scleral icterus. No injection or drainage. ENT: No nasal bleeding or discharge. Mucous membranes pink and moist. NECK: Trachea midline. No JVD. CARDIOVASCULAR: Regular rate and rhythm. S1, S2 no S4. RESPIRATORY: No accessory muscle use. Clear to auscultation. Breath sounds equal bilaterally. GASTROINTESTINAL: Abdomen soft, non-tender, nondistended. Hepatic and splenic margins not palpable. MUSCULOSKELETAL: Extremities without clubbing, cyanosis, or edema. No obvious deformities. NEUROLOGICAL: Awake and alert. No obvious cranial nerve deficits. Motor grossly within normal limits. Five out of 5 muscle strength in the arms and legs. Normal speech. Laboratory Laboratory Tests Test 06/09/17 12:23 06/09/17 13:23 White Blood Count 6.2 Red Blood Count 4.30 Hemoglobin 13.8 Hematocrit 38.9 Mean Corpuscular Volume 90.4 Mean Corpuscular Hemoglobin 32.2 Mean Corpuscular Hemoglobin Concent 35.6 Red Cell Distribution Width 13.9 Platelet Count 261 Mean Platelet Volume 8.5 Neutrophils (%) (Auto) 54.1 Lymphocytes (%) (Auto) 30.0 Monocytes (%) (Auto) 12.9 Eosinophils (%) (Auto) 2.4 Basophils (%) (Auto) 0.6 Neutrophils # (Auto) 3.4 Lymphocytes # (Auto) 1.9 Monocytes # (Auto) 0.8 Eosinophils # (Auto) 0.2 Basophils # (Auto) 0.0 CBC Comment DIFF FINAL Differential Comment Activated Partial Thromboplast Time 26.6 Blood Urea Nitrogen 10 Creatinine 0.89 Random Glucose 89 Calcium Level 8.6 Sodium Level 143 Potassium Level 4.1 Chloride Level 106 Carbon Dioxide Level 33.5 Anion Gap 4 Estimat Glomerular Filtration Rate 100 Prothrombin Time 11.1 Prothromb Time International Ratio 1.1 Result Diagram: 06/09/17 1223 06/09/17 1223 Imaging Last Impressions Chest X-Ray 06/09/17 0000 Signed Impressions: Service Date/Time: June 08:17 - CONCLUSION: 1. No acute cardiopulmonary disease. Glenn Robins MD Cerebral Arteriogram 06/09/17 0000 Signed Impressions: Service Date/Time: June 14:33 - CONCLUSION: 1. Uncomplicated embolization of meningioma in the right parietal region. 2. The superior sagittal sinus does demonstrate focal stenosis of the posterior aspect of neoplasm but is patent. Glenn Robins MD Septic Shock Reassessment Septic shock perfusion: reassessment completed Assessment and Plan Assessment and Plan Neuro/PSYCH: Right parietal occipital brain mass - likely meningioma status post embolization minimal majority 06/[address] Robins History of polysubstance abuse - hydromorphone, THC, cocaine, amphetamines Seizure disorder NOS Seizure precautions Levetiracetam 500 mg twice a day/home medications continue Acetaminophen 650 mg by mouth every 4 hours when necessary fever Currently on hydrocodone/acetaminophen 10/325 one to 2 tablets every 4 hours. Pain 1-10 Hydromorphone 1 mg every 3 hours when necessary breakthrough pain Alprazolam 0.5 mg every 8 hours when necessary anxiety Lorazepam 1 mg IV to 2 hours. Breakthrough Seizures Cyclobenzaprine 10 mg every 8 hours when necessary muscle spasm Status post embolization of the right middle meningeal artery by Dr. Robins 06/09 Plan for stereotactic image guided right parietal occipital craniotomy with resection of mass 06/[address] Gant Currently seeing mannitol 25 g every 6 hours per neurosurgery CV: Patient is currently on normal saline at 100 cc an hour Currently not requiring vasopressors and/or antihypertensives Clonidine 0.1 mg every 6 hours. As needed systolic blood pressure greater than 170 EKG revealed heart rate around 60. Nonspecific ST-T change anterior/lateral leads. Resp: Ongoing tobaccoism Nasal cannula if necessary to maintain saturations greater than equal to 92% Incentive spirometry while awake Albuterol aerosols every 4 hours when necessary dyspnea Tobacco cessation self education booklet provided Currently not requesting nicotine patch Chest x-ray revealed no acute pulmonary findings GI: Nothing by mouth after midnight Pantoprazole for GI prophylaxis : No indication for Vaughan catheter Endo: Sliding-scale insulin only if indicated to maintain euglycemia Renal: Creatinine currently within normal limits Monitor urine output Accurate I's and O's Heme: CBC and coags within normal limits ID: History of MRSA left elbow Status post cefazolin 1 after embolization. Along with vancomycin 1 g 1 Postoperative antibiotics per neurosurgery MSK: PT evaluate and treat FEN: Replace electrolytes as clinically indicated Access - Utilize peripheral IV. Central line if indicated Prophylaxis - GI - pantoprazole - DVT - SCD/holding pharmacological prophylaxis in light of planned surgery in a.m. 06/10 Level II consult Code Status Full code Discussed Condition With Patient. Care plan discussed and all questions answered. Damion Espinoza MD Jun 09, 2017 18:54
[2017-06-09] MEDS ORDERED: ceFAZolin 2 GM PREMIX 50 ML IV ONE (19:00)
[2017-06-09 20:00] VITALS: BP 110/57; PULSE 70; RESP 16; TEMP 98.2; O2SAT 98
[2017-06-09] MEDS: SODIUM CHLOR 0.9% 1000 ML INJ 1,000 ML IV SCH (20:11)
[2017-06-09] MEDS: MANNITOL 12.5 GM/50 ML VIAL IV SCH (20:12)
[2017-06-10] VITALS (9 sets, daily range): BP systolic 109–135; BP diastolic 57–82; PULSE 62–108; RESP 12–14; TEMP 97.4–98.5; O2SAT 96–100
[2017-06-10] MEDS: MANNITOL 12.5 GM/50 ML VIAL IV SCH ×4 (01:00→20:27)
[2017-06-10] MEDS: HYDROmorphone HCL PF 2 MG/ML VIAL IV PRN ×3 (01:00→18:09)
[2017-06-10] MEDS: CHLORHEXIDINE GLUCONATE 4% SOLN 120 ML BTL TOP SCH ×4 (03:48→21:00)
[2017-06-10] MEDS: SODIUM CHLOR 0.9% 1000 ML INJ 1,000 ML IV SCH (03:49)
[2017-06-10] MEDS ORDERED: MIDAZOLAM HCL 2 MG/2 ML VIAL ONE ×2 (07:08→14:56)
[2017-06-10] MEDS ORDERED: ARTIFICIAL TEARS OPTH OINT 3.5 APPLIC/3.5 GM TUBO ONE (07:08)
[2017-06-10] MEDS ORDERED: ACETAMINOPHEN 1000 MG/100 ML 100 ML IV ONE (07:08)
[2017-06-10] MEDS ORDERED: PROPOFOL 500 MG/50 ML INJ 50 ML ONE (07:09)
[2017-06-10] MEDS ORDERED: MICROFIBRILLAR COLLAGEN HEMOSTAT 70 X 35 MM BANDAGE ONE (07:17)
[2017-06-10] MEDS ORDERED: FUROSEMIDE 40 MG/4 ML VIAL ONE (07:17)
[2017-06-10] MEDS ORDERED: ceFAZolin 2 GM PREMIX 50 ML ONE (07:17)
[2017-06-10] MEDS ORDERED: GELFOAM SIZE 100 ONE (07:17)
[2017-06-10] MEDS ORDERED: THROMBIN (TOPICAL) 5,000 UNIT VIAL ONE (07:17)
[2017-06-10] MEDS ORDERED: GENTAMICIN SULFATE 80 MG/2 ML VIAL ONE (07:18)
[2017-06-10] MEDS ORDERED: levETIRAcetam 500 MG/5 ML VIAL IV ONE (07:18)
[2017-06-10] MEDS ORDERED: MUPIROCIN 2% OINT 22 GM TUBE ONE (07:18)
[2017-06-10] MEDS: levETIRAcetam 500 MG TAB PO SCH ×2 (07:45→20:26)
[2017-06-10] MEDS: PANTOPRAZOLE SOD 40 MG DELAYED RELEASE TAB PO SCH (07:45)
[2017-06-10] MEDS: PANTOPRAZOLE SODIUM 40 MG VIAL IV PUSH SCH (07:46)
[2017-06-10] MEDS ORDERED: PANTOPRAZOLE SOD 40 MG DELAYED RELEASE TAB PO SCH (09:00)
[2017-06-10] MEDS ORDERED: GADODIAMIDE PF 287 MG/ML 5 ML VIAL (for RAD MRI) IVCONTRAST ONE (09:08)
--- NOTE | 2017-06-10 09:41 | RADRPT ---
EXAM DATE/TIME: 06/10/2017 09:00 [facility] COMPARISON: MRI BRAIN W & W/O CONTRAST, July 14, 2016, 21:15. INDICATIONS : Mass. CONTRAST: 14 cc Omniscan (gadodiamide) IV MEDICAL HISTORY : None. SURGICAL HISTORY : None. ENCOUNTER: Initial ACUITY: 1 day PAIN SCORE: 0/10 LOCATION: cranial TECHNIQUE: An MRI brain stealth procedure was performed. The information will be used in the OR for localizatio n. FINDINGS: MR of the brain was performed for stereotactic localization of the enlargement angioma in the right p arietal region measuring 5.6 x 5.7 CM. There is mass effect and midline shift but no signs of herniat ion. No acute intracranial process is identified. CONCLUSION: 1. MR for stereotactic localization as above Glenn Robins MD on June 10, 2017 at 9:36 Board Certified Radiologist. This report was verified electronically.
[2017-06-10] MEDS ORDERED: HYDROmorphone HCL PF 2 MG/ML VIAL ONE (12:10)
[2017-06-10] MEDS: NS + KCL 20 MEQ INJ 1,000 ML IV SCH (14:55)
[2017-06-10] MEDS ORDERED: *morphine SULFATE 4 MG/ML PERIprocedure ONLY ONE (15:08)
[2017-06-10] MEDS ORDERED: DO NOT ADM ANY ANTICOAGULANT DRUGS PRN (15:15)
[2017-06-10] MEDS ORDERED: HYDROmorphone HCL PF 2 MG/ML VIAL IV PUSH PRN (15:15)
--- NOTE | 2017-06-10 15:17 | PD.OP ---
Operative Report Date of Surgery: Jun 10, 2017 Preoperative Diagnosis: Right parietooccipital mass Postoperative Diagnosis: Right atypical meningioma Procedure: Stereotactic, image-guided right parietalk occipital craniotomy with resection of atypical meningioma Anesthesia: general Surgeon: Wu Gant Production Cloth Cutter(s): Darcy Youssef Operation and Findings: INTRAOPERATIVE FINDINGS Dural base right frontal mass consistent with meningioma. Frozen section consistent with atypical meningioma INDICATIONS FOR THE SURGERY mr Dunn is a 31 year ols male who presented with recurrent seizures. He was found to have a large right parietal occipital mass measuring 5.6 x 5.7 CM, causing mass effect and midline shift. A surgical resection was indicated. This is a complex and high risk care, given the size and vasculature of the mass. It was not possible to refer [facility] to [facility] or [facility] because he was an indigent, uninsured patient. Prior to the procedure, a cerebral angiography with endovascular emboliation of the tumor was performed. Surgical resection was indicated. I have discussed the [id number] details of the procedure, its indications, alternatives, risks and potential complications with the patient, including but not limited to the risk of infection, hemorrhage, paralysis, stroke, heart attack, even vegetative state or even the possibility of . The patient fully understands. All her questions were answered. No guarantees were given. She voiced requesting the procedure and provided informed consent. She has been offered the alternative of not having aggressive management. DETAILS OF THE SURGICAL PROCEDURE Prior to the surgery the patient underwent MRI of the brain according to the stereotactic protocol. The information was transferred to the workstation located in the operative suite. Preoperative registration was performed. The patient was then transferred to the operating room. After induction of general anesthesia, endotracheal intubation was done. A Vaughan catheter, bilateral RITU hose, sequential compression devices were placed and kept throughout the procedure. The patient was positioned supine on a 30/80 tablewith a gel rolls under his shoulder and with his head in a flexed and rigid fixation using the [place] headholder. All pressure points were carefully padded with egg crate mattress. The eyes were tapped shut after ointment was applied by the anesthesiologist to prevent corneal abrasion. A Ian hugger was placed over the expossed lower body to maintain control of the core body temperature. The electrophysiological team placed the needles and electrodes in their proper location and baseline SSEP's evoked potentials were registered. The rigid reference body was attached to the hogshead stock clerk and [facility] intraoperative registration was performed with a laser and a soft touch furniture maker. The right fronto parietal occipital area was shaved, prepped and draped in the usual sterile fashion. A standard horseshoe incision was outlined on the scalp and infiltrated with 1% lidocaine with epinephrine. The skin incision was made with a #10 blade down to the level of the periosteum. Bin clips were applied to the scalp. Using a Bovie, the myofascial scalp flap was incised and a subperiosteal dissection was performed reflecting the scalp flap posteriorly. The scalp was covered with a moist sponge and held in position using fish hooks. The TPS drill was brought to the field and 3 bur holes were made adjacent to the midline in the parietal region using the craniotome attachment. Then, using the footplate attachment, a frontal craniotomy flap was elevated. The dura was from the bone along the superior sagital sinus, DETACHING THE BONE FROM THE CALVARIUM. Then, using the TPS with footplate attachment, the craniotomy was extended through the midline to the contralateral side, in order to have a complete exposure and control of the superior sagittal sinus. The dura was bulging, with obvious mass effect due to the underlying tumor. The tumor was identified with the brainlab, and the dura was opened with a 15 blade and metzembaun sissors along the margings of the tumor, and retracted with 4-0 Neurolon sutures attached to the fascia. A large dural based mass was identified. At this point of the procedure the operative microscope was draped in the usual sterile fashion and brought to the field. The rest of the surgical procedure was performed using microdissection technique with the exception of the closure. Under the operative microscope, the tumor/levy interface was identified, and using microsurgical dissection technique, the mass was circunferentially dissected from the underlying brain. Using the micro-bipolar forceps, microscissors, micro-suction, and gentle irrigation, microdissection technique was used to resect the mass, preserving the tumor-arachnoid interfase intact. A specimen was sent to the lab for histological analysis. Frozen section was reported as consistent with atypical meningioma. The rest of the tumor was sent for permanent histopathological analysis and stains. N the medial , The 2 more was attached to the sagittal sinus, and it appears attached to the sinus, possibly invading it. Using the bipolar on micro-dissectors, the tumor was carefully dissected from the sinus, preserving the wall of the sinus intact. I removed as much tumor from the sinus as possible. A gross total resection of the mass was achieved. Then, appropriate hemostasis was then secured using the bipolar airborne sensor specialist. There was a fairly large cavity in the surface of the brain, callus by the chronic compression of the brain by the tumor. Then the incision was irrigated with saline solution. The dural edges were tacked to the bone. A 7 mm Tye- Acharya drain was left on the cavity of the tumor and externalized through a separate stab incision. The dura was reconstructed using DuraGen. The craniotomy flap was then repositioned and secured in place using Striker plates and screws. A 7 millimeter Tye-Acharya drain was then left in the subgaleal space and externalized through a separate stab incision. The incision was then closed in layers. 0 Vicryl in interrupted sutures were used to approximate the scalp. The galea was closed with interrupted 3-0 Vicryl. Carroll were applied to the skin. The drain was secured with a 3-0 nylon. At the end of the procedure, the sponge, needle and instrument counts were all correct. Estimated blood loss was less than 500-600 cc. No blood transfusion was given. No intraoperative complications occurred. The patient received prophylactic antibiotics. The patient was then transferred to the recovery room in stable condition. COMPLICATIONS None Wu Gant MD Jun 10, 2017 15:17
[2017-06-10] MEDS ORDERED: *HYDROmorphone PF 1 MG VIAL PERIprocedural Use ONLY ONE (15:22)
[2017-06-10 15:33] LABS: AUTOMATED NEUTROPHIL # 7.3 TH/MM3 (1.8-7.7); BASOPHIL % 0.2 % (0.0-2.0); EOSINOPHIL % 0.2 % (0.0-4.0); HEMOGLOBIN 10.2 GM/DL (13.0-17.0); LYMPH % 14.5 % (9.0-44.0); LYMPHOCYTE # 1.3 TH/MM3 (1.0-4.8); MEAN CELL VOLUME 90.5 FL (80.0-100.0); MEAN CORPUSCULAR HEMOGLOBIN 30.8 PG (27.0-34.0); MEAN CORPUSCULAR HGB CONC 34.1 % (32.0-36.0); MEAN PLATELET VOLUME 8.3 FL (7.0-11.0); MONO % 3.2 % (0.0-8.0); MONOCYTE # 0.3 TH/MM3 (0-0.9); NEUT % 81.9 % (16.0-70.0); PLATELET COUNT 246 TH/MM3 (150-450); RED BLOOD COUNT 3.32 MIL/MM3 (4.50-5.90); RED CELL DISTRIBUTION WIDTH 13.9 % (11.6-17.2); WHITE BLOOD COUNT 8.9 TH/MM3 (4.0-11.0)
--- NOTE | 2017-06-10 15:43 | RADRPT ---
EXAM DATE/TIME: 06/10/2017 14:45 [facility] COMPARISON: CHEST SINGLE AP, June 09, 2017, 8:17. INDICATIONS : Central line placement. MEDICAL HISTORY : Seizures. Brain mass SURGICAL HISTORY : None. ENCOUNTER: Subsequent ACUITY: 1 day PAIN SCORE: Non-responsive. LOCATION: Bilateral chest FINDINGS: The patient's left-sided transvenous catheter is in excellent position. The lungs are clear. There is no pneumothorax. The heart is normal in size. The bony structures are intact. CONCLUSION: 1. No pneumothorax identified following central venous catheter placement. Mark Herbert MD on June 10, 2017 at 15:40 Board Certified Radiologist. This report was verified electronically.
[2017-06-10 15:57] LABS: BICARBONATE 29.9 MEQ/L (21.0-32.0); CALCIUM 7.7 MG/DL (8.5-10.1); CREATININE 0.76 MG/DL (0.60-1.30)
--- NOTE | 2017-06-10 16:12 | RADRPT ---
EXAM DATE/TIME: 06/10/2017 15:58 [facility] COMPARISON: CT BRAIN W/O CONTRAST, May 11, 2017, 9:13. INDICATIONS : Brain mass, post-op craniotomy. RADIATION DOSE: 38.63 CTDIvol (mGy) MEDICAL HISTORY : Seizures. brain mass SURGICAL HISTORY : Craniotomy. ENCOUNTER: Initial ACUITY: 1 day PAIN SCALE: Non-responsive LOCATION: cranial TECHNIQUE: Multiple contiguous axial images were obtained of the head. Using automated exposure control and adj ustment of the mA and/or kV according to patient size, radiation dose was kept as low as reasonably a chievable to obtain optimal diagnostic quality images. DICOM format image data is available electro nically for review and comparison. FINDINGS: There expected postoperative changes following meningioma resection. Drain is in place. No cortical i nfarction is seen. Posterior fossa structures are unremarkable. CONCLUSION: 1. Postsurgical changes as above. No evidence of acute intracranial pathology. No masses are identifi ed. Glenn Robins MD on June 10, 2017 at 16:06 Board Certified Radiologist. This report was verified electronically.
[2017-06-10] MEDS: HYDROmorphone HCL PF 2 MG/ML VIAL IV PUSH PRN ×2 (16:25→22:30)
[2017-06-10] MEDS: ceFAZolin 2 GM PREMIX 50 ML IV SCH (18:10)
--- NOTE | 2017-06-10 18:10 | HHI.CCPN ---
Subjective Remarks/Hospital Course This is a 31-year-old male. Date of admission 06/09/2017. Date of consultation 06/09/2017. Past medical history includes history of a right parietal occipital brain mass likely meningioma, seizure disorder diagnosed 07/24 , tobaccoism and polysubstance use including hydromorphone, THC, cocaine and amphetamines. He also smokes 1 pack per day tobacco.. Patient has a history of a large right parietal meningioma found on an MRI Brain obtained previously at [place]. He was evaluated previously by Neurosurgeon Dr. Jerome who recommended surgical resection as the patient was having recurrent seizures. Unfortunately the patient did not proceed with surgery in July 2016. He has been managing his seizures with levetiracetam. He ran out of his medication and suffered a breakthrough seizure recently and was seen at [place] ED. He has now receive new prescription for his seizure medications and has not had any further seizures since he was discharged from the emergency room. He is admitted Dr. Gant. CT Brain 05/11/17 [facility] - There is a 5.8 x 4.6 cm hyperdense extra-axial mass in the right parietal region characteristic of meningioma. The findings are similar to the prior exam. There is mass effect and midline shift of 5-6 mm but no signs of herniation. There is no significant surrounding vasogenic edema. No acute hemorrhage is seen. Posterior fossa structures are unremarkable. On 06/09, patient underwent embolization of the middle meningeal artery by Dr. Robins and iron without competition. Remains on levetiracetam 500 mg twice a day. He is planned for a stereotactic image guided right proximal craniotomy for excision of mass tomorrow 06/[address] Gant. 06/10: s/p Stereotactic, image-guided right parietal occipital craniotomy with resection of atypical meningioma. I evaluated patient postoperatively. Sittingup in bed, c/o pain at surgical site. Denies any trouble breathing. Objective Vital Signs Date Time Temp Pulse Resp B/P (MAP) Pulse Ox O2 Delivery O2 Flow Rate FiO2 06/10/17 17:14 98 21 06/10/17 16:55 12 06/10/17 16:10 97.4 62 109/61 (77) 06/10/17 15:45 Nasal Cannula 3 Intake and Output 06/10/17 06/10/17 06/11/17 08:00 16:00 00:00 Intake Total 1480 ml 3500 ml Output Total 1775 ml 1265 ml Balance -295 ml 2235 ml Result Diagram: 06/10/17 1502 06/10/17 1502 Other Results Laboratory Tests Test 06/10/17 12:32 06/10/17 13:15 Blood Gas Puncture Site DRAWN IN OR DRAWN IN OR Blood Gas Patient Temperature 98.6 98.6 Blood Gas HCO3 26 mmol/L (22-26) 27 mmol/L (22-26) Blood Gas Base Excess 2.4 mmol/L (-2-2) 3.1 mmol/L (-2-2) Blood Gas Oxygen Saturation 97 % (90-100) 97 % (90-100) Arterial Blood pH 7.47 (7.380-7.420) 7.47 (7.380-7.420) Arterial Blood Partial Pressure CO2 36 mmHg (38-42) 37 mmHg (38-42) Arterial Blood Partial Pressure O2 259 mmHg (61-120) 269 mmHg (61-120) Arterial Blood Oxygen Content 16.0 Vol % (12.0-20.0) 14.9 Vol % (12.0-20.0) Arterial Blood Carboxyhemoglobin 1.3 % (0-4) 1.4 % (0-4) Arterial Blood Methemoglobin 1.2 % (0-2) 1.3 % (0-2) Blood Gas Hemoglobin 11.3 G/DL (12.0-16.0) 10.4 G/DL (12.0-16.0) Oxygen Delivery Device OPERATING ROOM OPERATING ROOM Blood Gas Inspired Oxygen 50 % 50 % Imaging Last Impressions Chest X-Ray 06/09/17 0000 Signed Impressions: Service Date/Time: June 08:17 - CONCLUSION: 1. No acute cardiopulmonary disease. Glenn Robins MD Cerebral Arteriogram 06/09/17 0000 Signed Impressions: Service Date/Time: June 14:33 - CONCLUSION: 1. Uncomplicated embolization of meningioma in the right parietal region. 2. The superior sagittal sinus does demonstrate focal stenosis of the posterior aspect of neoplasm but is patent. Glenn Robins MD Objective Remarks GENERAL: 31-year-old male resting in bed in no distress secondary to pain over craniotomy site SKIN: Warm and dry. HEAD: Atraumatic. Normocephalic. EYES: Pupils equal and round. No scleral icterus. No injection or drainage. ENT: No nasal bleeding or discharge. Mucous membranes pink and moist. NECK: Trachea midline. No JVD. CARDIOVASCULAR: Regular rate and rhythm. S1, S2 no S4. RESPIRATORY: No accessory muscle use. Clear to auscultation. Breath sounds equal bilaterally. GASTROINTESTINAL: Abdomen soft, non-tender, nondistended. Hepatic and splenic margins not palpable. MUSCULOSKELETAL: Extremities without clubbing, cyanosis, or edema. No obvious deformities. NEUROLOGICAL: Status post craniotomy, SUSANA drains in place, Awake and alert. No obvious cranial nerve deficits. Motor grossly within normal limits. Five out of 5 muscle strength in the arms and legs. Normal speech. A/P Assessment and Plan Neuro/PSYCH: Right parietal occipital brain mass - likely meningioma status post embolization minimal majority 06/[address] Robins History of polysubstance abuse - hydromorphone, THC, cocaine, amphetamines Seizure disorder NOS Seizure precautions Levetiracetam 500 mg twice a day/home medications continue Acetaminophen 650 mg by mouth every 4 hours when necessary fever Currently on hydrocodone/acetaminophen 10/325 one to 2 tablets every 4 hours. Pain 1-10 Hydromorphone 1 mg every 3 hours when necessary breakthrough pain Alprazolam 0.5 mg every 8 hours when necessary anxiety Lorazepam 1 mg IV to 2 hours. Breakthrough Seizures Cyclobenzaprine 10 mg every 8 hours when necessary muscle spasm Status post embolization of the right middle meningeal artery by Dr. Robins 06/09 s/p stereotactic image guided right parietal occipital craniotomy with resection of mass 06/[address] Gant Currently seeing mannitol 25 g every 6 hours per neurosurgery CV: Patient is currently on normal saline at 100 cc an hour. Given fluid bolus 500 cc for borderline blood pressure now. Currently not requiring vasopressors and/or antihypertensives Clonidine 0.1 mg every 6 hours. As needed systolic blood pressure greater than 170 Resp: Ongoing tobaccoism Nasal cannula if necessary to maintain saturations greater than equal to 92% Incentive spirometry while awake Albuterol aerosols every 4 hours when necessary dyspnea Tobacco cessation self education booklet provided Currently not requesting nicotine patch Chest x-ray revealed no acute pulmonary findings GI: By mouth diet as tolerated Pantoprazole for GI prophylaxis : No indication for Vaughan catheter Endo: Sliding-scale insulin only if indicated to maintain euglycemia Renal: Creatinine currently within normal limits Monitor urine output Accurate I's and O's Heme: CBC and coags within normal limits ID: History of MRSA left elbow Status post cefazolin 1 after embolization. Along with vancomycin 1 g 1 Postoperative antibiotics per neurosurgery MSK: PT evaluate and treat FEN: Replace electrolytes as clinically indicated Access - Utilize peripheral IV. Central line if indicated Prophylaxis - GI - pantoprazole - DVT - SCD/holding pharmacological prophylaxis till cleared by neurosurgery Frantz Medina MD Jun 10, 2017 18:10
--- NOTE | 2017-06-10 18:33 | EKG ---
Date Performed: 06/09/2017 Time Performed: 09:55:33 PTAGE: 31 years EKG: Sinus rhythm NONSPECIFIC T-WAVE ABNORMALITY BORDERLINE ECG PREVIOUS TRACING : 07/14/2016 18.13 DOCTOR: Shaneka Hamilton Interpretating Date/Time 06/10/2017 18:31:41
[2017-06-10] MEDS ORDERED: SODIUM CHLORID 0.9% 500 ML INJ 500 ML IV ONE (18:45)
[2017-06-10] MEDS: ALPRAZolam 0.5 MG TAB PO PRN (20:26)
[2017-06-10] MEDS: ACETAMINOPHEN/HYDROcodone 325 MG/10 MG TAB PO PRN (20:37)
[2017-06-11] VITALS (14 sets, daily range): BP systolic 103–128; BP diastolic 62–69; PULSE 70–98; RESP 11–18; TEMP 98–98.7; O2SAT 96–100
[2017-06-11] MEDS: NS + KCL 20 MEQ INJ 1,000 ML IV SCH ×3 (01:01→19:47)
[2017-06-11] MEDS: MANNITOL 12.5 GM/50 ML VIAL IV SCH ×4 (02:00→19:47)
[2017-06-11] MEDS: HYDROmorphone HCL PF 2 MG/ML VIAL IV PUSH PRN ×5 (02:37→21:24)
[2017-06-11] MEDS: ceFAZolin 2 GM PREMIX 50 ML IV SCH ×2 (02:37→10:12)
[2017-06-11 03:06] LABS: AUTOMATED NEUTROPHIL # 10.8 TH/MM3 (1.8-7.7); BASOPHIL % 0.1 % (0.0-2.0); HEMATOCRIT 24.8 % (39.0-51.0); HEMOGLOBIN 8.7 GM/DL (13.0-17.0); LYMPH % 10.6 % (9.0-44.0); LYMPHOCYTE # 1.4 TH/MM3 (1.0-4.8); MEAN CELL VOLUME 89.4 FL (80.0-100.0); MEAN CORPUSCULAR HEMOGLOBIN 31.3 PG (27.0-34.0); MEAN PLATELET VOLUME 8.2 FL (7.0-11.0); MONO % 10.1 % (0.0-8.0); MONOCYTE # 1.4 TH/MM3 (0-0.9); NEUT % 79.2 % (16.0-70.0); PLATELET COUNT 218 TH/MM3 (150-450); RED BLOOD COUNT 2.77 MIL/MM3 (4.50-5.90); RED CELL DISTRIBUTION WIDTH 13.8 % (11.6-17.2); WHITE BLOOD COUNT 13.6 TH/MM3 (4.0-11.0)
[2017-06-11 03:25] LABS: BICARBONATE 32.2 MEQ/L (21.0-32.0); CALCIUM 7.7 MG/DL (8.5-10.1); CREATININE 0.76 MG/DL (0.60-1.30)
[2017-06-11] MEDS: PANTOPRAZOLE SOD 40 MG DELAYED RELEASE TAB PO SCH (07:47)
[2017-06-11] MEDS: levETIRAcetam 500 MG TAB PO SCH ×2 (07:47→19:48)
[2017-06-11] MEDS: PANTOPRAZOLE SODIUM 40 MG VIAL IV PUSH SCH (07:48)
[2017-06-11] MEDS: ACETAMINOPHEN/HYDROcodone 325 MG/10 MG TAB PO PRN (09:28)
--- NOTE | 2017-06-11 11:55 | HHI.NSPN ---
(Karrie Shell) Note Status Status: Progress Note (Karrie Shell) Status: Progress Note (Wu Gant MD) Interval History Interval History Mr. Dunn is status post right parietal occipital craniotomy for resection of large meningioma 06/10/17. 06/11/17: Patient is neurologically stable postoperatively, c/o of moderate surgical pain and left arm numbness. f/u CT Head yesterday with stable postop changes. (Karrie Shell) Labs, Micro, & Vital Signs Results Date Time Temp Pulse Resp B/P (MAP) Pulse Ox O2 Delivery O2 Flow Rate FiO2 06/11/17 10:28 12 06/11/17 10:00 81 06/11/17 08:45 98 21 06/11/17 08:11 18 06/11/17 08:00 98.6 80 17 125/63 (83) 99 06/11/17 08:00 80 06/11/17 06:00 88 06/11/17 04:00 74 06/11/17 04:00 98.2 74 11 103/69 (80) 97 06/11/17 02:00 88 06/11/17 00:00 86 06/11/17 00:00 98.0 70 11 119/67 (84) 96 06/10/17 22:00 90 06/10/17 21:13 98 06/10/17 20:00 97.6 70 14 122/60 (80) 96 06/10/17 20:00 72 06/10/17 18:00 86 06/10/17 17:14 98 21 06/10/17 16:10 97.4 62 12 109/61 (77) 100 06/10/17 16:10 62 06/10/17 15:45 67 12 98 Nasal Cannula 3 06/10/17 15:30 98 12 112/54 (73) 96 Nasal Cannula 3 06/10/17 15:15 90 14 114/59 (77) 98 Nasal Cannula 3 06/10/17 15:00 70 12 116/66 (83) 99 Nasal Cannula 3 06/10/17 14:45 92 12 137/71 (93) 96 Nasal Cannula 3 06/10/17 14:39 99.1 95 12 112/75 (87) 96 Nasal Cannula 3 06/12/17 07:00 Intake Total 1050 ml Output Total 85 ml Balance 965 ml Constitutional Vital Signs Date Time Temp Pulse Resp B/P (MAP) Pulse Ox O2 Delivery O2 Flow Rate FiO2 06/11/17 10:28 12 06/11/17 10:00 81 06/11/17 08:45 98 21 06/11/17 08:11 18 06/11/17 08:00 98.6 80 17 125/63 (83) 99 06/11/17 08:00 80 06/11/17 06:00 88 06/11/17 04:00 74 06/11/17 04:00 98.2 74 11 103/69 (80) 97 06/11/17 02:00 88 06/11/17 00:00 86 06/11/17 00:00 98.0 70 11 119/67 (84) 96 06/10/17 22:00 90 06/10/17 21:13 98 06/10/17 20:00 97.6 70 14 122/60 (80) 96 06/10/17 20:00 72 06/10/17 18:00 86 06/10/17 17:14 98 21 06/10/17 16:10 97.4 62 12 109/61 (77) 100 06/10/17 16:10 62 06/10/17 15:45 67 12 98 Nasal Cannula 3 06/10/17 15:30 98 12 112/54 (73) 96 Nasal Cannula 3 06/10/17 15:15 90 14 114/59 (77) 98 Nasal Cannula 3 06/10/17 15:00 70 12 116/66 (83) 99 Nasal Cannula 3 06/10/17 14:45 92 12 137/71 (93) 96 Nasal Cannula 3 06/10/17 14:39 99.1 95 12 112/75 (87) 96 Nasal Cannula 3 06/12/17 07:00 Intake Total 1050 ml Output Total 85 ml Balance 965 ml (Karrie Shell) Review of Systems Neurologic: COMPLAINS OF: Headache, Paresthesias (Karrie Sehll) Physical Exam Mr. Dunn is awake and oriented to time, place and person. Speech is fluent. Following commands well. Surgical wound with clean, dry dressing. SUSANA drain in place with serosanguineous drainage. Cranial nerve examination: pupils equal, round, and reactive to light. EOMs are intact. Facial motor and sensory function are normal and symmetrical. Neck is soft and supple. Motor: moves all four extremities Sensory examination is intact to light touch in both the upper and lower extremities with some numbness in the LUE (Karrie Shell) Medications Current Medications Current Medications Medications (Trade) Dose Ordered Sig/Cliff Route PRN Reason Start Time Stop Time Status Last Admin Dose Admin Levetriacetam (Keppra) 500 mg BID PO 06/09/17 09:00 06/11/17 07:47 Pantoprazole Sodium (Protonix) 40 mg DAILY PO 06/09/17 09:00 06/11/17 07:47 Pantoprazole Sodium (Protonix Inj) 40 mg DAILY IV PUSH 06/09/17 09:00 06/10/17 07:46 Lorazepam (Ativan Inj) 1 mg Q2H PRN IV PUSH seizures 06/09/17 09:00 Ondansetron HCl (Zofran Inj) 4 mg Q6H PRN IV PUSH NAUSEA OR VOMITING 06/09/17 09:45 Cyclobenzaprine HCl (Flexeril) 10 mg Q8H PRN PO MUSCLE SPASM 06/09/17 09:45 06/10/17 20:27 Clonidine (Catapres) 0.1 mg Q6H PRN PO/NG SYS BP GREATER THAN 170 MMHG 06/09/17 09:45 Acetaminophen (Tylenol) 650 mg Q4H PRN PO TEMPERATURE > 101.5 F 06/09/17 09:45 Menthol (Humble Meg) 1 lozenge UNSCH PRN BUCCAL SORE THROAT 06/09/17 09:45 Albuterol Sulfate (Albuterol Neb) 2.5 mg Q4HR NEB PRN INH WHEEZING 06/09/17 09:45 Chlorhexidine Gluconate (Hibiclens 4% Top Soln) 1 applic HS TOP 06/09/17 21:00 06/11/17 21:01 06/10/17 03:48 Alprazolam (Xanax) 0.5 mg Q8H PRN PO ANXIETY 06/09/17 18:45 06/10/17 20:26 Hydromorphone HCl (Dilaudid Pf Inj) 1 mg Q3H PRN IV BREAKTHROUGH PAIN 06/09/17 18:45 06/10/17 18:09 Mannitol (Mannitol Inj) 25 gm Q6H IV 06/09/17 20:00 06/11/17 07:48 Potassium Chloride/Sodium Chloride 1,000 ml @ 100 mls/hr Q10H IV 06/10/17 14:55 06/11/17 10:13 Hydromorphone HCl (Dilaudid Pf Inj) 2 mg Q4H PRN IV PUSH pain 6-10 06/10/17 15:00 06/11/17 07:41 Miscellaneous Information ALL NURSING DEPARTME... UNSCH PRN .XX SEE LABEL COMMENTS 06/10/17 15:15 06/11/17 15:14 Oxycodone/ Acetaminophen (Percocet 10-325 Mg) 1 tab Q4H PRN PO pain 1-5 06/11/17 11:45 UNV (Karrie Shell) Medical Decision Making MDM Remarks 31 y/o male s/p right parietoccipital craniotomy for resection of large brain mass, suspected meningioma 06/10/17 (Karrie Shell) Plan Plan Remarks cont neuro checks in [facility] cont supportive care of postoperative pain cont Mannitol 25g q 6 hours SCDs and TEDs for dvt prophylaxis Protonix for ulcer prophylaxis cont Keppra 500 q12 hour for seizures (Karrie Shell) Attending Statement The exam, history, and the medical decision-making described in the above note were completed with the assistance of the mid-level provider. I reviewed and agree with the findings presented. I attest that I had a [id number] encounter with the patient on the same day, and personally performed and documented my assessment and findings in the medical record. (Wu Gant MD) Karrie Shell Jun 11, 2017 11:55 Wu Gant MD Jun 11, 2017 14:18
[2017-06-11] MEDS: oxyCODONE/ACETAMINOPHEN 10 MG/325 MG TAB PO PRN ×2 (13:24→19:48)
--- NOTE | 2017-06-11 14:35 | HHI.CCPN ---
Subjective Remarks/Hospital Course This is a 31-year-old male. Date of admission 06/09/2017. Date of consultation 06/09/2017. Past medical history includes history of a right parietal occipital brain mass likely meningioma, seizure disorder diagnosed 07/24 , tobaccoism and polysubstance use including hydromorphone, THC, cocaine and amphetamines. He also smokes 1 pack per day tobacco.. Patient has a history of a large right parietal meningioma found on an MRI Brain obtained previously at [place]. He was evaluated previously by Neurosurgeon Dr. Jerome who recommended surgical resection as the patient was having recurrent seizures. Unfortunately the patient did not proceed with surgery in July 2016. He has been managing his seizures with levetiracetam. He ran out of his medication and suffered a breakthrough seizure recently and was seen at [place] ED. He has now receive new prescription for his seizure medications and has not had any further seizures since he was discharged from the emergency room. He is admitted Dr. Gant. CT Brain 05/11/17 [facility] - There is a 5.8 x 4.6 cm hyperdense extra-axial mass in the right parietal region characteristic of meningioma. The findings are similar to the prior exam. There is mass effect and midline shift of 5-6 mm but no signs of herniation. There is no significant surrounding vasogenic edema. No acute hemorrhage is seen. Posterior fossa structures are unremarkable. On 06/09, patient underwent embolization of the middle meningeal artery by Dr. Robins and iron without competition. Remains on levetiracetam 500 mg twice a day. He is planned for a stereotactic image guided right proximal craniotomy for excision of mass tomorrow 06/[address] Gant. 06/10: s/p Stereotactic, image-guided right parietal occipital craniotomy with resection of atypical meningioma. I evaluated patient postoperatively. Sittingup in bed, c/o pain at surgical site. Denies any trouble breathing. 06/11: Sitting up in bed not in any acute distress. Awake and alert. Tolerating by mouth diet. Objective Vital Signs Date Time Temp Pulse Resp B/P (MAP) Pulse Ox O2 Delivery O2 Flow Rate FiO2 06/11/17 12:16 12 06/11/17 10:00 81 06/11/17 08:45 98 21 06/11/17 08:00 98.6 125/63 (83) 06/10/17 15:45 Nasal Cannula 3 Intake and Output 06/11/17 06/11/17 06/12/17 08:00 16:00 00:00 Intake Total 1530 ml 1050 ml Output Total 2150 ml 85 ml Balance -620 ml 965 ml Result Diagram: 06/11/17 0253 06/11/17 0253 Imaging Last Impressions Chest X-Ray 06/09/17 0000 Signed Impressions: Service Date/Time: June 08:17 - CONCLUSION: 1. No acute cardiopulmonary disease. Glenn Robins MD Cerebral Arteriogram 06/09/17 0000 Signed Impressions: Service Date/Time: June 14:33 - CONCLUSION: 1. Uncomplicated embolization of meningioma in the right parietal region. 2. The superior sagittal sinus does demonstrate focal stenosis of the posterior aspect of neoplasm but is patent. Glenn Robins MD Objective Remarks GENERAL: 31-year-old male resting in bed in no distress secondary to pain over craniotomy site SKIN: Warm and dry. HEAD: Atraumatic. Normocephalic. EYES: Pupils equal and round. No scleral icterus. No injection or drainage. ENT: No nasal bleeding or discharge. Mucous membranes pink and moist. NECK: Trachea midline. No JVD. CARDIOVASCULAR: Regular rate and rhythm. S1, S2 no S4. RESPIRATORY: No accessory muscle use. Clear to auscultation. Breath sounds equal bilaterally. GASTROINTESTINAL: Abdomen soft, non-tender, nondistended. Hepatic and splenic margins not palpable. MUSCULOSKELETAL: Extremities without clubbing, cyanosis, or edema. No obvious deformities. NEUROLOGICAL: Status post craniotomy, SUSANA drains in place, Awake and alert. No obvious cranial nerve deficits. Motor grossly within normal limits. Five out of 5 muscle strength in the arms and legs. Normal speech. A/P Assessment and Plan Neuro/PSYCH: Right parietal occipital brain mass - likely meningioma status post embolization minimal majority 06/[address] Robisn History of polysubstance abuse - hydromorphone, THC, cocaine, amphetamines Seizure disorder NOS Seizure precautions Levetiracetam 500 mg twice a day/home medications continue Acetaminophen 650 mg by mouth every 4 hours when necessary fever Currently on hydrocodone/acetaminophen 10/325 one to 2 tablets every 4 hours. Pain 1-10 Hydromorphone 1 mg every 3 hours when necessary breakthrough pain Alprazolam 0.5 mg every 8 hours when necessary anxiety Lorazepam 1 mg IV to 2 hours. Breakthrough Seizures Cyclobenzaprine 10 mg every 8 hours when necessary muscle spasm Status post embolization of the right middle meningeal artery by Dr. Robins 06/09 s/p stereotactic image guided right parietal occipital craniotomy with resection of mass 06/[address] Gant Currently seeing mannitol 25 g every 6 hours per neurosurgery CV: Patient is currently on normal saline at 100 cc an hour. Given fluid bolus 500 cc for borderline blood pressure now. Currently not requiring vasopressors and/or antihypertensives Clonidine 0.1 mg every 6 hours. As needed systolic blood pressure greater than 170 Resp: Ongoing tobaccoism Nasal cannula if necessary to maintain saturations greater than equal to 92% Incentive spirometry while awake Albuterol aerosols every 4 hours when necessary dyspnea Tobacco cessation self education booklet provided Currently not requesting nicotine patch Chest x-ray revealed no acute pulmonary findings GI: By mouth diet as tolerated Pantoprazole for GI prophylaxis : No indication for Vaughan catheter Endo: Sliding-scale insulin only if indicated to maintain euglycemia Renal: Creatinine currently within normal limits Monitor urine output Accurate I's and O's Heme: CBC and coags within normal limits ID: History of MRSA left elbow Status post cefazolin 1 after embolization. Along with vancomycin 1 g 1 Postoperative antibiotics per neurosurgery MSK: PT evaluate and treat FEN: Replace electrolytes as clinically indicated Access - Utilize peripheral IV. Central line if indicated Prophylaxis - GI - pantoprazole - DVT - SCD/holding pharmacological prophylaxis till cleared by neurosurgery Frantz Medina MD Jun 11, 2017 14:35
[2017-06-11] MEDS: CHLORHEXIDINE GLUCONATE 4% SOLN 120 ML BTL TOP SCH (21:00)
[2017-06-12] VITALS (13 sets, daily range): BP systolic 106–140; BP diastolic 56–71; PULSE 64–106; RESP 12–20; TEMP 97.9–98.7; O2SAT 98–100
[2017-06-12] MEDS: oxyCODONE/ACETAMINOPHEN 10 MG/325 MG TAB PO PRN (01:00)
[2017-06-12] MEDS: HYDROmorphone HCL PF 2 MG/ML VIAL IV PUSH PRN ×6 (01:23→23:11)
[2017-06-12] MEDS: MANNITOL 12.5 GM/50 ML VIAL IV SCH ×4 (01:24→20:55)
[2017-06-12] MEDS: NS + KCL 20 MEQ INJ 1,000 ML IV SCH ×2 (06:28→17:47)
[2017-06-12] MEDS: PANTOPRAZOLE SODIUM 40 MG VIAL IV PUSH SCH (07:55)
[2017-06-12] MEDS: levETIRAcetam 500 MG TAB PO SCH ×2 (07:55→20:55)
[2017-06-12] MEDS: PANTOPRAZOLE SOD 40 MG DELAYED RELEASE TAB PO SCH (07:55)
[2017-06-12 10:10] LABS: HEMATOCRIT 24.3 % (39.0-51.0); HEMOGLOBIN 8.5 GM/DL (13.0-17.0); MEAN CELL VOLUME 89.9 FL (80.0-100.0); MEAN CORPUSCULAR HEMOGLOBIN 31.3 PG (27.0-34.0); MEAN CORPUSCULAR HGB CONC 34.8 % (32.0-36.0); MEAN PLATELET VOLUME 8.3 FL (7.0-11.0); PLATELET COUNT 203 TH/MM3 (150-450); RED CELL DISTRIBUTION WIDTH 13.8 % (11.6-17.2); WHITE BLOOD COUNT 10.4 TH/MM3 (4.0-11.0)
[2017-06-12 10:37] LABS: BICARBONATE 30.5 MEQ/L (21.0-32.0); CALCIUM 8.6 MG/DL (8.5-10.1); CREATININE 0.74 MG/DL (0.60-1.30)
--- NOTE | 2017-06-12 11:44 | HHI.NSPN ---
(Karrie Shell) Note Status Status: Progress Note (Wu Gant MD) Interval History Interval History Mr. Dunn is status post right parietal occipital craniotomy for resection of large meningioma 06/10/17. 06/11/17: Patient is neurologically stable postoperatively, c/o of moderate surgical pain and left arm numbness. f/u CT Head yesterday with stable postop changes. 06/12/17: stable left arm numbness, moderate head pain. no seizures, vomiting, change in mental status overnight. (Karrie Shell) Labs, Micro, & Vital Signs Results Date Time Temp Pulse Resp B/P (MAP) Pulse Ox O2 Delivery O2 Flow Rate FiO2 06/12/17 08:53 98 21 06/12/17 06:00 84 06/12/17 04:00 84 06/12/17 04:00 98.7 74 18 106/63 (77) 100 06/12/17 02:00 84 06/12/17 00:00 64 06/12/17 00:00 98.7 64 18 124/56 (78) 100 06/11/17 22:00 92 06/11/17 20:20 99 21 06/11/17 20:00 98.7 86 18 128/67 (87) 100 06/11/17 20:00 76 06/11/17 18:00 79 06/11/17 17:43 26 06/11/17 16:00 98.3 87 15 123/62 (82) 100 06/11/17 16:00 87 06/11/17 14:24 16 06/11/17 14:00 98 06/11/17 12:00 92 06/11/17 12:00 98.2 92 15 123/62 (82) 99 Constitutional Vital Signs Date Time Temp Pulse Resp B/P (MAP) Pulse Ox O2 Delivery O2 Flow Rate FiO2 06/12/17 08:53 98 21 06/12/17 06:00 84 06/12/17 04:00 84 06/12/17 04:00 98.7 74 18 106/63 (77) 100 06/12/17 02:00 84 06/12/17 00:00 64 06/12/17 00:00 98.7 64 18 124/56 (78) 100 06/11/17 22:00 92 06/11/17 20:20 99 21 06/11/17 20:00 98.7 86 18 128/67 (87) 100 06/11/17 20:00 76 06/11/17 18:00 79 06/11/17 17:43 26 06/11/17 16:00 98.3 87 15 123/62 (82) 100 06/11/17 16:00 87 06/11/17 14:24 16 06/11/17 14:00 98 06/11/17 12:00 92 06/11/17 12:00 98.2 92 15 123/62 (82) 99 (Karrie Shell) Review of Systems Constitutional: DENIES: Fever Neurologic: COMPLAINS OF: Headache, Paresthesias, DENIES: Localized weakness, Seizures (Karrie Shell) Physical Exam Mr. Dunn is awake and oriented to time, place and person. Speech is fluent. Following commands well. Surgical wound with clean, dry dressing. SUSANA drain in place with serosanguineous drainage. Cranial nerve examination: pupils equal, round, and reactive to light. EOMs are intact. Facial motor and sensory function are normal and symmetrical. Neck is soft and supple. Motor: moves all four extremities Sensory examination is intact to light touch in both the upper and lower extremities with some numbness in the LUE (Karrie Shell) Medications Current Medications Current Medications Medications (Trade) Dose Ordered Sig/Cliff Route PRN Reason Start Time Stop Time Status Last Admin Dose Admin Levetriacetam (Keppra) 500 mg BID PO 06/09/17 09:00 06/12/17 07:55 Pantoprazole Sodium (Protonix) 40 mg DAILY PO 06/09/17 09:00 06/12/17 07:55 Pantoprazole Sodium (Protonix Inj) 40 mg DAILY IV PUSH 06/09/17 09:00 06/10/17 07:46 Lorazepam (Ativan Inj) 1 mg Q2H PRN IV PUSH seizures 06/09/17 09:00 Ondansetron HCl (Zofran Inj) 4 mg Q6H PRN IV PUSH NAUSEA OR VOMITING 06/09/17 09:45 Cyclobenzaprine HCl (Flexeril) 10 mg Q8H PRN PO MUSCLE SPASM 06/09/17 09:45 06/10/17 20:27 Clonidine (Catapres) 0.1 mg Q6H PRN PO/NG SYS BP GREATER THAN 170 MMHG 06/09/17 09:45 Acetaminophen (Tylenol) 650 mg Q4H PRN PO TEMPERATURE > 101.5 F 06/09/17 09:45 Menthol (Gamaliel Meg) 1 lozenge UNSCH PRN BUCCAL SORE THROAT 06/09/17 09:45 Albuterol Sulfate (Albuterol Neb) 2.5 mg Q4HR NEB PRN INH WHEEZING 06/09/17 09:45 Alprazolam (Xanax) 0.5 mg Q8H PRN PO ANXIETY 06/09/17 18:45 06/10/17 20:26 Hydromorphone HCl (Dilaudid Pf Inj) 1 mg Q3H PRN IV BREAKTHROUGH PAIN 06/09/17 18:45 06/10/17 18:09 Mannitol (Mannitol Inj) 25 gm Q6H IV 06/09/17 20:00 06/12/17 07:55 Potassium Chloride/Sodium Chloride 1,000 ml @ 100 mls/hr Q10H IV 06/10/17 14:55 06/12/17 06:28 Hydromorphone HCl (Dilaudid Pf Inj) 2 mg Q4H PRN IV PUSH pain 6-10 06/10/17 15:00 06/12/17 10:27 Oxycodone/ Acetaminophen (Percocet 10-325 Mg) 1 tab Q4H PRN PO pain 1-5 06/11/17 11:45 06/12/17 01:00 (Karrie Shell) Current Medications Current Medications Levetriacetam (Keppra) 500 mg BID PO Last administered on 06/12/17at 07:55; Start 06/09/17 at 09:00 Ondansetron HCl (Zofran Inj) 4 mg Q8H PRN IV PUSH NAUSEA OR VOMITING; Start 06/09/17 at 08:45; Stop 06/09/17 at 10:38; Status DC Pantoprazole Sodium (Protonix) 40 mg DAILY PO Last administered on 06/12/17at 07: 55; Start 06/09/17 at 09:00 Pantoprazole Sodium (Protonix Inj) 40 mg DAILY IV PUSH Last administered on 06/10at 07:46; Start 06/09/17 at 09:00 Promethazine HCl (Phenergan) 25 mg Q6H PRN PO HEADACHE; Start 06/09/17 at 08:45 ; Stop 06/09/17 at 11:03; Status DC Lorazepam (Ativan Inj) 1 mg Q2H PRN IV PUSH seizures; Start 06/09/17 at 09:00 Pantoprazole Sodium (Protonix) 40 mg DAILY PO ; Start 06/10/17 at 09:00; Status UNV Ondansetron HCl (Zofran Inj) 4 mg Q6H PRN IV PUSH NAUSEA OR VOMITING; Start 06/09/17 at 09:45 Acetaminophen/ Hydrocodone Bitart ([place] 10-325 Mg) 1 tab Q4H PRN PO PAIN SCALE 1 TO 5; Start 06/09/17 at 09:45; Stop 06/11/17 at 11:42; Status DC Acetaminophen/ Hydrocodone Bitart ([place] 10-325 Mg) 2 tab Q4H PRN PO PAIN SCALE 6 TO 10 Last administered on 06/11/17at 09:28; Start 06/09/17 at 09:45; Stop 06/11/17 at 11:42; Status DC Morphine Sulfate (Morphine Inj) 2 mg Q2H PRN IV PUSH PAIN SCALE 1 TO 6; Start 06/09/17 at 11:00; Stop 06/09/17 at 18:39; Status DC Morphine Sulfate (Morphine Inj) 4 mg Q2H PRN IV PUSH PAIN SCALE 7 TO 10; Start 06/09/17 at 11:00; Stop 06/09/17 at 18:39; Status DC Cyclobenzaprine HCl (Flexeril) 10 mg Q8H PRN PO MUSCLE SPASM Last administered on 06/10/17at 20:27; Start 06/09/17 at 09:45 Clonidine (Catapres) 0.1 mg Q6H PRN PO/NG SYS BP GREATER THAN 170 MMHG; Start 06/09/17 at 09:45 Acetaminophen (Tylenol) 650 mg Q4H PRN PO TEMPERATURE > 101.5 F; Start 06/09/17 at 09:45 Menthol (Gamaliel Meg) 1 lozenge UNSCH PRN BUCCAL SORE THROAT; Start 06/09/17 at 09 :45 Albuterol Sulfate (Albuterol Neb) 2.5 mg Q4HR NEB PRN INH WHEEZING; Start at 09:45 Chlorhexidine Gluconate (Hibiclens 4% Top Soln) 1 applic HS TOP Last administered on 06/10/17at 03:48; Start 06/09/17 at 21:00; Stop 06/11/17 at 21:01; Status DC Fentanyl Citrate (fentaNYL INJ) 100 mcg STK-MED ONCE .ROUTE Last administered on 06/09/17 14:35; Start 06/09/17 at 14:35; Stop 06/09/17 at 14:36; Status DC Midazolam HCl (Versed Inj) 2 mg STK-MED ONCE .ROUTE Last administered on 14:35; Start 06/09/17 at 14:35; Stop 06/09/17 at 14:36; Status DC Fentanyl Citrate (fentaNYL INJ) 100 mcg STK-MED ONCE .ROUTE Last administered on 06/09/17 14:53; Start 06/09/17 at 14:53; Stop 06/09/17 at 14:54; Status DC Midazolam HCl (Versed Inj) 2 mg STK-MED ONCE .ROUTE Last administered on 14:54; Start 06/09/17 at 14:54; Stop 06/09/17 at 14:55; Status DC Fentanyl Citrate (fentaNYL INJ) 100 mcg STK-MED ONCE .ROUTE Last administered on 06/09/17 15:06; Start 06/09/17 at 15:06; Stop 06/09/17 at 15:07; Status DC Midazolam HCl (Versed Inj) 2 mg STK-MED ONCE .ROUTE Last administered on 15:06; Start 06/09/17 at 15:06; Stop 06/09/17 at 15:07; Status DC Sodium Chloride 10 ml @ As Directed STK-MED ONCE .ROUTE Last administered on 15:42; Start 06/09/17 at 15:42; Stop 06/09/17 at 15:43; Status DC Heparin Sodium (Porcine) (Heparin Inj) 10,000 units STK-MED ONCE .ROUTE Last administered on 06/09/17at 15:38; Start 06/09/17 at 15:42; Stop 06/09/17 at 15:43; Status DC Fentanyl Citrate (fentaNYL INJ) 100 mcg STK-MED ONCE .ROUTE Last administered on 06/09/17at 15:49; Start 06/09/17 at 15:49; Stop 06/09/17 at 15:50; Status DC Midazolam HCl (Versed Inj) 2 mg STK-MED ONCE .ROUTE Last administered on at 15:50; Start 06/09/17 at 15:50; Stop 06/09/17 at 15:51; Status DC Lorazepam (Ativan Inj) 2 mg STK-MED ONCE .ROUTE Last administered on 06/09/17at 16:17; Start 06/09/17 at 16:17; Stop 06/09/17 at 16:18; Status DC Hydromorphone HCl (Dilaudid Pf Inj) 2 mg STK-MED ONCE .ROUTE Last administered on 06/09/17at 16:34; Start 06/09/17 at 16:34; Stop 06/09/17 at 16:35; Status DC Iodixanol (VISIPAQUE 320 INJ (Rad Spec)) 155 ml STK-MED ONCE I-ARTERIAL Last administered on 06/09/17at 16:55; Start 06/09/17 at 16:55; Stop 06/09/17 at 16:56; Status DC Nitroglycerin (Nitroglycerin Inj) 150 mcg STK-MED ONCE OTHER Last administered on 06/09/17at 17:00; Start 06/09/17 at 17:00; Stop 06/09/17 at 17:01; Status DC Sodium Chloride 1,000 ml @ 100 mls/hr Q10H IV Last administered on 06/10/17 03 :49; Start 06/09/17 at 18:04; Stop 06/10/17 at 15:06; Status DC Cefazolin Sodium/ Dextrose 50 ml @ 150 mls/hr ONCE ONCE IV Last administered on 06/09/17at 22:51; Start 06/09/17 at 19:00; Stop 06/09/17 at 19:19; Status DC Vancomycin HCl 1000 mg/Sodium Chloride 250 ml @ 250 mls/hr ONCE ONCE IV Last administered on 06/09/17at 20:12; Start 06/09/17 at 18:45; Stop 06/09/17 at 19:44; Status DC Chlorhexidine Gluconate (Hibiclens 4% Top Soln) 1 applic HS TOP Last administered on 06/10/17at 03:49; Start 06/09/17 at 21:00; Stop 06/10/17 at 21:01; Status DC Alprazolam (Xanax) 0.5 mg Q8H PRN PO ANXIETY Last administered on 06/10/17at 20: 26; Start 06/09/17 at 18:45 Hydromorphone HCl (Dilaudid Pf Inj) 1 mg Q3H PRN IV BREAKTHROUGH PAIN Last administered on 06/10/17at 18:09; Start 06/09/17 at 18:45 Mannitol (Mannitol Inj) 25 gm Q6H IV Last administered on 06/12/17at 14:21; Start 06/09/17 at 20:00 Acetaminophen 100 ml @ As Directed STK-MED ONCE IV ; Start 06/10/17 at 07:08; Stop 06/10/17 at 07:09; Status DC Artificial Tears (Lacrilube Opht Oint) 3.5 applic STK-MED ONCE .ROUTE ; Start at 07:08; Stop 06/10/17 at 07:09; Status DC Midazolam HCl (Versed Inj) 2 mg STK-MED ONCE .ROUTE ; Start 06/10/17 at 07:08; Stop 06/10/17 at 07:09; Status DC Propofol 50 ml @ As Directed STK-MED ONCE .ROUTE ; Start 06/10/17 at 07:09; Stop 06/10/17 at 07:10; Status DC Microfibriller Collagen Hemostat (Avitene Bandage) 1 bandage STK-MED ONCE .ROUTE Last administered on 06/10/17at 12:00; Start 06/10/17 at 07:17; Stop at 07:18; Status DC Thrombin (Thrombin Top Soln) 10,000 units STK-MED ONCE .ROUTE Last administered on 06/10/17at 12:00; Start 06/10/17 at 07:17; Stop 1/5/18 at 07:18; Status DC Cefazolin Sodium/ Dextrose 50 ml @ As Directed STK-MED ONCE .ROUTE Last administered on 06/10/17at 11:22; Start 06/10/17 at 07:17; Stop 06/10/17 at 07:18; Status DC Gelatin (Gelfoam 100 Top) 1 foam STK-MED ONCE .ROUTE Last administered on at 12:00; Start 06/10/17 at 07:17; Stop 06/10/17 at 07:18; Status DC Furosemide (Lasix Inj) 40 mg STK-MED ONCE .ROUTE ; Start 06/10/17 at 07:17; Stop 06/10/17 at 07:18; Status DC Levetriacetam (Keppra Inj) 1,000 mg STK-MED ONCE IV Last administered on at 11:21; Start 06/10/17 at 07:18; Stop 06/10/17 at 07:19; Status DC Gentamicin Sulfate (Gentamicin Inj) 240 mg STK-MED ONCE .ROUTE Last administered on 06/10/17at 12:00; Start 06/10/17 at 07:18; Stop 06/10/17 at 07:19; Status DC Mupirocin (Bactroban 2% Oint) 22 applic STK-MED ONCE .ROUTE Last administered on 06/10/17at 12:00; Start 06/10/17 at 07:18; Stop 06/10/17 at 07:19; Status DC Gadodiamide (Omniscan Pf Inj) 14 ml STK-MED ONCE IVCONTRAST Last administered on 06/10/17at 09:08; Start 06/10/17 at 09:08; Stop 06/10/17 at 09:09; Status DC Nicardipine HCl (Cardene Inj) 25 mg STK-MED ONCE .ROUTE ; Start 06/10/17 at 10:00 ; Stop 06/10/17 at 10:01; Status DC Hydromorphone HCl (Dilaudid Pf Inj) 2 mg STK-MED ONCE .ROUTE ; Start 06/10/17 at 12:10; Stop 06/10/17 at 12:11; Status DC Fentanyl Citrate (fentaNYL INJ) 400 mcg STK-MED ONCE .ROUTE ; Start 06/10/17 at 14:55; Stop 06/10/17 at 14:56; Status DC Midazolam HCl (Versed Inj) 2 mg STK-MED ONCE .ROUTE ; Start 06/10/17 at 14:56; Stop 06/10/17 at 14:57; Status DC Potassium Chloride/Sodium Chloride 1,000 ml @ 100 mls/hr Q10H IV Last administered on 06/12/17at 06:28; Start 06/10/17 at 14:55 Hydromorphone HCl (Dilaudid Pf Inj) 2 mg Q4H PRN IV PUSH pain 6-10 Last administered on 06/12/17at 14:22; Start 06/10/17 at 15:00 Morphine Sulfate (*morphine INJ PERIprocedure ONLY) 4 mg STK-MED ONCE .ROUTE Last administered on 06/10/17at 15:08; Start 06/10/17 at 15:08; Stop 06/10/17 at 15: 09; Status DC Hydromorphone HCl (Dilaudid Pf Inj) 1 mg Q4H PRN IV PUSH ; Start 06/10/17 at 15: 15; Stop 06/10/17 at 15:15; Status DC Miscellaneous Information ALL NURSING DEPARTME... UNSCH PRN .XX SEE LABEL COMMENTS; Start 06/10/17 at 15:15; Stop 06/11/17 at 15:14; Status DC Cefazolin Sodium/ Dextrose 50 ml @ 100 mls/hr Q8H IV Last administered on at 10:12; Start 06/10/17 at 19:00; Stop 06/11/17 at 11:29; Status DC Hydromorphone HCl (*DILAUDID PF INJ PERIprocedural ONLY) 1 mg STK-MED ONCE .ROUTE Last administered on 06/10/17at 15:22; Start 06/10/17 at 15:22; Stop at 15:23; Status DC Sodium Chloride 500 ml @ 0 mls/hr NOW ONCE IV Last administered on 06/10/17at 18 :30; Start 06/10/17 at 18:45; Stop 06/10/17 at 18:46; Status DC Oxycodone/ Acetaminophen (Percocet 10-325 Mg) 1 tab Q4H PRN PO pain 1-5 Last administered on 06/12/17at 01:00; Start 06/11/17 at 11:45 (Wu Gant MD) Medical Decision Making MDM Remarks 31 y/o male s/p right parietoccipital craniotomy for resection of large brain mass, suspected meningioma 06/10/17 (Karrie Shell) Plan Plan Remarks cont neuro checks in ISC cont supportive care of postoperative pain cont Mannitol 25g q 6 hours, serum os, hold if >310 cont SUSANA draining SCDs and TEDs for dvt prophylaxis Protonix for ulcer prophylaxis cont Keppra 500 q12 hour for seizures follow pathology PT, ok to start mobilizing OOB with assistance (Karrie Shell) Attending Statement The exam, history, and the medical decision-making described in the above note were completed with the assistance of the mid-level provider. I reviewed and agree with the findings presented. I attest that I had a [id number] encounter with the patient on the same day, and personally performed and documented my assessment and findings in the medical record. (Wu Gant MD) Karrie Shell Jun 12, 2017 11:44 Wu Gant MD Jun 12, 2017 14:56
--- NOTE | 2017-06-12 19:32 | HHI.CCPN ---
Subjective Remarks/Hospital Course This is a 31-year-old male. Date of admission 06/09/2017. Date of consultation 06/09/2017. Past medical history includes history of a right parietal occipital brain mass likely meningioma, seizure disorder diagnosed 07/24 , tobaccoism and polysubstance use including hydromorphone, THC, cocaine and amphetamines. He also smokes 1 pack per day tobacco.. Patient has a history of a large right parietal meningioma found on an MRI Brain obtained previously at [facility]. He was evaluated previously by Neurosurgeon Dr. Jerome who recommended surgical resection as the patient was having recurrent seizures. Unfortunately the patient did not proceed with surgery in July 2016. He has been managing his seizures with levetiracetam. He ran out of his medication and suffered a breakthrough seizure recently and was seen at [facility] ED. He has now receive new prescription for his seizure medications and has not had any further seizures since he was discharged from the emergency room. He is admitted Dr. Gant. CT Brain 05/11/17 [facility] - There is a 5.8 x 4.6 cm hyperdense extra-axial mass in the right parietal region characteristic of meningioma. The findings are similar to the prior exam. There is mass effect and midline shift of 5-6 mm but no signs of herniation. There is no significant surrounding vasogenic edema. No acute hemorrhage is seen. Posterior fossa structures are unremarkable. On 06/09, patient underwent embolization of the middle meningeal artery by Dr. Robins and iron without competition. Remains on levetiracetam 500 mg twice a day. He is planned for a stereotactic image guided right proximal craniotomy for excision of mass tomorrow 06/[address] Gant. 06/10: s/p Stereotactic, image-guided right parietal occipital craniotomy with resection of atypical meningioma. I evaluated patient postoperatively. Sittingup in bed, c/o pain at surgical site. Denies any trouble breathing. 06/11: Sitting up in bed not in any acute distress. Awake and alert. Tolerating by mouth diet. 06/12: still complains of headache. otherwise sitting up in bed. tolerating diet. no nausea/vomiting. does state his headache is improved from yesterday. still getting scheduled mannitol. osms still low. Objective Vital Signs Date Time Temp Pulse Resp B/P (MAP) Pulse Ox O2 Delivery O2 Flow Rate FiO2 06/12/17 18:00 78 06/12/17 16:00 98.4 12 110/66 (81) 100 06/12/17 08:53 21 06/10/17 15:45 Nasal Cannula 3 Intake and Output 06/12/17 06/12/17 06/13/17 08:00 16:00 00:00 Intake Total 1240 ml 1720 ml Output Total 2980 ml 565 ml Balance -1740 ml 1155 ml Result Diagram: 06/12/17 0953 06/12/17 0953 Imaging Last Impressions Chest X-Ray 06/09/17 0000 Signed Impressions: Service Date/Time: June 08:17 - CONCLUSION: 1. No acute cardiopulmonary disease. Glenn Robins MD Cerebral Arteriogram 06/09/17 0000 Signed Impressions: Service Date/Time: June 14:33 - CONCLUSION: 1. Uncomplicated embolization of meningioma in the right parietal region. 2. The superior sagittal sinus does demonstrate focal stenosis of the posterior aspect of neoplasm but is patent. Glenn Robins MD Objective Remarks GENERAL: 31-year-old male resting in bed in no distress SKIN: Warm and dry. HEAD: Atraumatic. Normocephalic. EYES: Pupils equal and round. No scleral icterus. No injection or drainage. ENT: No nasal bleeding or discharge. Mucous membranes pink and moist. NECK: Trachea midline. No JVD. CARDIOVASCULAR: Regular rate and rhythm. RESPIRATORY: No accessory muscle use. equal chest rise. GASTROINTESTINAL: Abdomen soft, non-tender, nondistended. MUSCULOSKELETAL: Extremities without clubbing, cyanosis, or edema. No obvious deformities. NEUROLOGICAL: Status post craniotomy, SUSANA drains in place, Awake and alert. No obvious cranial nerve deficits. Motor grossly within normal limits. Five out of 5 muscle strength in the arms and legs. Normal speech. A/P Assessment and Plan Assessment: 31yM s/p crani for suspected meningioma. clinically improving. will need to remain in ICU while on serial mannitol and osms given his significant negative fluid balance. otherwise improving as we would expect. headache is stable and slightly improved per patient from yesterday. continue current pain regimen as patient states this is tolerable for him. Neuro/PSYCH: Right parietal occipital brain mass - likely meningioma status post embolization minimal majority 06/[address] Robins History of polysubstance abuse - hydromorphone, THC, cocaine, amphetamines Seizure disorder NOS Seizure precautions Levetiracetam 500 mg twice a day/home medications continue Acetaminophen 650 mg by mouth every 4 hours when necessary fever Currently on hydrocodone/acetaminophen 10/325 one to 2 tablets every 4 hours. Pain 1-10 Hydromorphone 1 mg every 3 hours when necessary breakthrough pain Alprazolam 0.5 mg every 8 hours when necessary anxiety Lorazepam 1 mg IV to 2 hours. Breakthrough Seizures Cyclobenzaprine 10 mg every 8 hours when necessary muscle spasm Status post embolization of the right middle meningeal artery by Dr. Robins 06/09 s/p stereotactic image guided right parietal occipital craniotomy with resection of mass 06/[address] Gant Currently seeing mannitol 25 g every 6 hours per neurosurgery CV: Patient is currently on normal saline at 100 cc an hour. Given fluid bolus 500 cc for borderline blood pressure now. Currently not requiring vasopressors and/or antihypertensives Clonidine 0.1 mg every 6 hours. As needed systolic blood pressure greater than 170 Resp: Ongoing tobaccoism Nasal cannula if necessary to maintain saturations greater than equal to 92% Incentive spirometry while awake Albuterol aerosols every 4 hours when necessary dyspnea Tobacco cessation self education booklet provided Currently not requesting nicotine patch Chest x-ray revealed no acute pulmonary findings GI: By mouth diet as tolerated Pantoprazole for GI prophylaxis : No indication for Vaughan catheter Endo: Sliding-scale insulin only if indicated to maintain euglycemia Renal: Creatinine currently within normal limits Monitor urine output Accurate I's and O's Heme: CBC and coags within normal limits ID: History of MRSA left elbow Status post cefazolin 1 after embolization. Along with vancomycin 1 g 1 Postoperative antibiotics per neurosurgery MSK: PT evaluate and treat FEN: Replace electrolytes as clinically indicated Access - Utilize peripheral IV. Central line if indicated Prophylaxis - GI - pantoprazole - DVT - SCD/holding pharmacological prophylaxis till cleared by neurosurgery Cj Le MD Jun 12, 2017 19:32
[2017-06-12] MEDS: ALPRAZolam 0.5 MG TAB PO PRN (23:24)
[2017-06-13] VITALS (10 sets, daily range): BP systolic 101–131; BP diastolic 51–70; PULSE 68–103; RESP 11–26; TEMP 97.9–98.4; O2SAT 96–100
[2017-06-13] MEDS: MANNITOL 12.5 GM/50 ML VIAL IV SCH ×2 (02:25→08:45)
[2017-06-13] MEDS: NS + KCL 20 MEQ INJ 1,000 ML IV SCH ×2 (02:26→11:49)
[2017-06-13] MEDS: HYDROmorphone HCL PF 2 MG/ML VIAL IV PUSH PRN ×5 (03:08→20:23)
[2017-06-13 06:35] LABS: BICARBONATE 29.8 MEQ/L (21.0-32.0); CALCIUM 8.5 MG/DL (8.5-10.1); CREATININE 0.68 MG/DL (0.60-1.30)
[2017-06-13] MEDS: PANTOPRAZOLE SOD 40 MG DELAYED RELEASE TAB PO SCH (07:38)
[2017-06-13] MEDS: levETIRAcetam 500 MG TAB PO SCH ×2 (07:38→20:22)
[2017-06-13] MEDS: PANTOPRAZOLE SODIUM 40 MG VIAL IV PUSH SCH (07:39)
--- NOTE | 2017-06-13 12:53 | HHI.NSPN ---
(Karrie Shell) Note Status Status: Progress Note (Karrie Shell) Interval History Interval History Mr. Dunn is status post right parietal occipital craniotomy for resection of large meningioma 06/10/17. 06/11/17: Patient is neurologically stable postoperatively, c/o of moderate surgical pain and left arm numbness. f/u CT Head yesterday with stable postop changes. 06/12/17: stable left arm numbness, moderate head pain. no seizures, vomiting, change in mental status overnight. 06/13/17: persistent left arm numbness, denies weakness, stable surgical head pain. SUSANA drains x 2 still with moderate output overnight. however he is feeling better today, eating his breakfast and appears more comfortable. (Karrie Shell) Labs, Micro, & Vital Signs Results Date Time Temp Pulse Resp B/P (MAP) Pulse Ox O2 Delivery O2 Flow Rate FiO2 06/13/17 12:00 98.1 98 26 117/67 (84) 96 06/13/17 12:00 98 06/13/17 10:00 68 06/13/17 08:10 99 21 06/13/17 08:00 103 06/13/17 08:00 98.1 103 11 101/70 (80) 100 06/13/17 06:00 70 06/13/17 04:00 97.9 96 17 118/68 (85) 99 06/13/17 04:00 96 06/13/17 02:00 73 06/13/17 00:00 98.4 96 12 121/67 (85) 99 06/13/17 00:00 96 06/12/17 22:00 92 06/12/17 20:00 96 06/12/17 20:00 98.5 96 20 120/71 (87) 100 06/12/17 18:54 12 06/12/17 18:00 78 06/12/17 16:00 98.4 82 12 110/66 (81) 100 06/12/17 16:00 82 06/12/17 14:00 84 Constitutional Vital Signs Date Time Temp Pulse Resp B/P (MAP) Pulse Ox O2 Delivery O2 Flow Rate FiO2 06/13/17 12:00 98.1 98 26 117/67 (84) 96 06/13/17 12:00 98 06/13/17 10:00 68 06/13/17 08:10 99 21 06/13/17 08:00 103 06/13/17 08:00 98.1 103 11 101/70 (80) 100 06/13/17 06:00 70 06/13/17 04:00 97.9 96 17 118/68 (85) 99 06/13/17 04:00 96 06/13/17 02:00 73 06/13/17 00:00 98.4 96 12 121/67 (85) 99 06/13/17 00:00 96 06/12/17 22:00 92 06/12/17 20:00 96 06/12/17 20:00 98.5 96 20 120/71 (87) 100 06/12/17 18:54 12 06/12/17 18:00 78 06/12/17 16:00 98.4 82 12 110/66 (81) 100 06/12/17 16:00 82 06/12/17 14:00 84 (Karrie Shell) Review of Systems Constitutional: DENIES: Fever Gastrointestinal: DENIES: Nausea, Vomiting Neurologic: COMPLAINS OF: Headache, Paresthesias (Karrie Shell) Physical Exam Mr. Dunn is awake and oriented to time, place and person. Speech is fluent. Following commands well. Surgical wound with clean, dry dressing. SUSANA drain in place with serosanguineous drainage. Cranial nerve examination: pupils equal, round, and reactive to light. EOMs are intact. Facial motor and sensory function are normal and symmetrical. Neck is soft and supple. Motor: moves all four extremities Sensory examination is intact to light touch in both the upper and lower extremities with some numbness in the LUE (Karrie Shell) Medications Current Medications Current Medications Medications (Trade) Dose Ordered Sig/Cliff Route PRN Reason Start Time Stop Time Status Last Admin Dose Admin Levetriacetam (Keppra) 500 mg BID PO 06/09/17 09:00 06/13/17 07:38 Pantoprazole Sodium (Protonix) 40 mg DAILY PO 06/09/17 09:00 06/13/17 07:38 Pantoprazole Sodium (Protonix Inj) 40 mg DAILY IV PUSH 06/09/17 09:00 06/10/17 07:46 Lorazepam (Ativan Inj) 1 mg Q2H PRN IV PUSH seizures 06/09/17 09:00 Ondansetron HCl (Zofran Inj) 4 mg Q6H PRN IV PUSH NAUSEA OR VOMITING 06/09/17 09:45 Cyclobenzaprine HCl (Flexeril) 10 mg Q8H PRN PO MUSCLE SPASM 06/09/17 09:45 06/10/17 20:27 Clonidine (Catapres) 0.1 mg Q6H PRN PO/NG SYS BP GREATER THAN 170 MMHG 06/09/17 09:45 Acetaminophen (Tylenol) 650 mg Q4H PRN PO TEMPERATURE > 101.5 F 06/09/17 09:45 Menthol ([place] Meg) 1 lozenge UNSCH PRN BUCCAL SORE THROAT 06/09/17 09:45 Albuterol Sulfate (Albuterol Neb) 2.5 mg Q4HR NEB PRN INH WHEEZING 06/09/17 09:45 Alprazolam (Xanax) 0.5 mg Q8H PRN PO ANXIETY 06/09/17 18:45 06/12/17 23:24 Hydromorphone HCl (Dilaudid Pf Inj) 1 mg Q3H PRN IV BREAKTHROUGH PAIN 06/09/17 18:45 06/10/17 18:09 Mannitol (Mannitol Inj) 25 gm Q6H IV 06/09/17 20:00 06/13/17 08:45 Potassium Chloride/Sodium Chloride 1,000 ml @ 100 mls/hr Q10H IV 06/10/17 14:55 06/13/17 11:49 Hydromorphone HCl (Dilaudid Pf Inj) 2 mg Q4H PRN IV PUSH pain 6-10 06/10/17 15:00 06/13/17 11:49 Oxycodone/ Acetaminophen (Percocet 10-325 Mg) 1 tab Q4H PRN PO pain 1-5 06/11/17 11:45 06/12/17 01:00 (Karrie Shell) Medical Decision Making MDM Remarks 31 y/o male s/p right parietoccipital craniotomy for resection of large brain mass, suspected meningioma 06/10/17 clinically improving, remains with moderate surgical pain (Karrie Shell) Plan Plan Remarks clear to transfer out of [facility] to 5N, dc [place] cont neuro checks cont supportive care of postoperative pain cont SUSANA draining today, anticipate dc tomorrow if output decreases SCDs and TEDs for dvt prophylaxis Protonix for ulcer prophylaxis cont Keppra 500 q12 hour for seizures follow pathology cont PT, ok to start mobilizing OOB with assistance, consult OT dw patient and grandmother in room update: [facility] nurse called around 1430, empty syringe found in patient's closet - girlfriend reportedly visited yesterday. he has a history of illicit drug use, will send for drug screen. (Karrie Shell) Attending Statement The exam, history, and the medical decision-making described in the above note were completed with the assistance of the mid-level provider. I reviewed and agree with the findings presented. I attest that I had a [id number] encounter with the patient on the same day, and personally performed and documented my assessment and findings in the medical record. (Wu Gant MD) Karrie Shell Jun 13, 2017 12:53 Wu Gant MD Jun 14, 2017 13:56
[2017-06-13] MEDS ORDERED: diphenhydrAMINE HCL 50 MG CAP PO PRN (14:30)
[2017-06-14] VITALS: BP 113/61; PULSE 89; RESP 20; TEMP 98.4; O2SAT 100
[2017-06-14] MEDS: NS + KCL 20 MEQ INJ 1,000 ML IV SCH (00:42)
[2017-06-14] MEDS: HYDROmorphone HCL PF 2 MG/ML VIAL IV PUSH PRN ×2 (00:42→05:52)
[2017-06-14 04:00] VITALS: BP 107/58; PULSE 75; RESP 20; TEMP 98; O2SAT 98
[2017-06-14 08:00] VITALS: BP 121/66; PULSE 75; RESP 16; TEMP 98.7; O2SAT 100
[2017-06-14 09:22] VITALS: O2SAT 100
--- NOTE | 2017-06-14 10:32 | HHI.NSPN ---
Note Status Status: Progress Note Interval History Interval History Mr. Dunn is status post right parietal occipital craniotomy for resection of large meningioma 06/10/17. 06/11/17: Patient is neurologically stable postoperatively, c/o of moderate surgical pain and left arm numbness. f/u CT Head yesterday with stable postop changes. 06/12/17: stable left arm numbness, moderate head pain. no seizures, vomiting, change in mental status overnight. 06/13/17: persistent left arm numbness, denies weakness, stable surgical head pain. SUSANA drains x 2 still with moderate output overnight. however he is feeling better today, eating his breakfast and appears more comfortable. 06/14/17: decreased output to SUSANA drains, feeling better, feels well to go home. stable left arm numbness. no seizures overnight. Labs, Micro, & Vital Signs Results Date Time Temp Pulse Resp B/P (MAP) Pulse Ox O2 Delivery O2 Flow Rate FiO2 06/14/17 09:22 100 06/14/17 08:00 98.7 75 16 121/66 (84) 100 06/14/17 06:05 21 06/14/17 04:00 98.0 75 20 107/58 (74) 98 06/14/17 00:00 98.4 89 20 113/61 (78) 100 06/13/17 20:00 98.4 87 20 103/51 (68) 98 06/13/17 14:33 97.9 83 18 131/64 (86) 100 06/13/17 12:00 98.1 98 26 117/67 (84) 96 06/13/17 12:00 98 Constitutional Vital Signs Date Time Temp Pulse Resp B/P (MAP) Pulse Ox O2 Delivery O2 Flow Rate FiO2 06/14/17 09:22 100 06/14/17 08:00 98.7 75 16 121/66 (84) 100 06/14/17 06:05 21 06/14/17 04:00 98.0 75 20 107/58 (74) 98 06/14/17 00:00 98.4 89 20 113/61 (78) 100 06/13/17 20:00 98.4 87 20 103/51 (68) 98 06/13/17 14:33 97.9 83 18 131/64 (86) 100 06/13/17 12:00 98.1 98 26 117/67 (84) 96 06/13/17 12:00 98 Review of Systems Constitutional: DENIES: Fever, Chills Neurologic: COMPLAINS OF: Headache, Paresthesias, DENIES: Seizures Physical Exam Mr. Dunn is awake and oriented to time, place and person. Speech is fluent. Following commands well. Surgical wound is clean and dry, healing well, reina intact. SUSANA drain in place with serosanguineous drainage. Cranial nerve examination: pupils equal, round, and reactive to light. EOMs are intact. Facial motor and sensory function are normal and symmetrical. Neck is soft and supple. Motor: moves all four extremities well with good strength Sensory examination is intact to light touch in both the upper and lower extremities with some numbness in the LUE Medications Current Medications Current Medications Medications (Trade) Dose Ordered Sig/Cliff Route PRN Reason Start Time Stop Time Status Last Admin Dose Admin Levetriacetam (Keppra) 500 mg BID PO 06/09/17 09:00 06/13/17 20:22 Pantoprazole Sodium (Protonix) 40 mg DAILY PO 06/09/17 09:00 06/13/17 07:38 Pantoprazole Sodium (Protonix Inj) 40 mg DAILY IV PUSH 06/09/17 09:00 06/10/17 07:46 Lorazepam (Ativan Inj) 1 mg Q2H PRN IV PUSH seizures 06/09/17 09:00 Ondansetron HCl (Zofran Inj) 4 mg Q6H PRN IV PUSH NAUSEA OR VOMITING 06/09/17 09:45 Cyclobenzaprine HCl (Flexeril) 10 mg Q8H PRN PO MUSCLE SPASM 06/09/17 09:45 06/10/17 20:27 Clonidine (Catapres) 0.1 mg Q6H PRN PO/NG SYS BP GREATER THAN 170 MMHG 06/09/17 09:45 Acetaminophen (Tylenol) 650 mg Q4H PRN PO TEMPERATURE > 101.5 F 06/09/17 09:45 Menthol ([place]wall Meg) 1 lozenge UNSCH PRN BUCCAL SORE THROAT 06/09/17 09:45 Albuterol Sulfate (Albuterol Neb) 2.5 mg Q4HR NEB PRN INH WHEEZING 06/09/17 09:45 Alprazolam (Xanax) 0.5 mg Q8H PRN PO ANXIETY 06/09/17 18:45 06/12/17 23:24 Hydromorphone HCl (Dilaudid Pf Inj) 1 mg Q3H PRN IV BREAKTHROUGH PAIN 06/09/17 18:45 06/10/17 18:09 Potassium Chloride/Sodium Chloride 1,000 ml @ 100 mls/hr Q10H IV 06/10/17 14:55 06/14/17 00:42 Hydromorphone HCl (Dilaudid Pf Inj) 2 mg Q4H PRN IV PUSH pain 6-10 06/10/17 15:00 06/14/17 05:52 Oxycodone/ Acetaminophen (Percocet 10-325 Mg) 1 tab Q4H PRN PO pain 1-5 06/11/17 11:45 06/12/17 01:00 Diphenhydramine HCl (Benadryl) 50 mg HS PRN PO INSOMNIA 06/13/17 14:30 06/13/17 20:22 Medical Decision Making MDM Remarks 31 y/o male s/p right parietoccipital craniotomy for resection of large brain mass, suspected meningioma 06/10/17 clinically improving, surgical pain improving, controlled Plan Plan Remarks cont neuro checks SUSANA drains x 2 dc'ed cont supportive care of postoperative pain SCDs and TEDs for dvt prophylaxis wean off IV pain medication, clear to dc home later today if pain controlled on oral medication Protonix for ulcer prophylaxis cont Keppra 500 q12 hour for seizures follow pathology- pending cont PT, encourage mobilizing OOB with assistance, OT Karrie Shell Jun 14, 2017 10:32
[2017-06-14 12:23] VITALS: BP 124/69; PULSE 87; RESP 18; TEMP 98.3; O2SAT 100
[2017-06-14] MEDS ORDERED: OXYC1TAB36 PO (12:58)
[2017-06-14] MEDS ORDERED: LEVE500 PO (12:58)
--- NOTE | 2017-06-14 13:04 | HHI.DCPOC ---
Discharge Care Plan Diagnosis: (1) S/P craniotomy (2) Neoplasm of brain causing mass effect on adjacent structures Goals to Promote Your Health * To prevent worsening of your condition and complications * To maintain your health at the optimal level Directions to Meet Your Goals Take your medications as prescribed Follow your dietary instruction Follow activity as directed Keep your appointments as scheduled Take your immunizations and boosters as scheduled If your symptoms worsen call your PCP, if no PCP go to Urgent Care Center or Emergency Room Smoking is Dangerous to Your Health. Avoid second hand smoke Call the 24-hour hour crisis hotline for domestic abuse at Karrie Shell Jun 14, 2017 13:04
--- NOTE | 2017-06-14 13:08 | HHI.DS ---
Discharge Summary Admission Date Jun 09, 2017 at 07:06 Discharge Date: Jun 14, 2017 Admitting Diagnosis Brief History Mr. Dunn is a 31 year old male with history of large right parietal meningioma found on an MRI Brain obtained previously at [place]. He was evaluated previously by Neurosurgeon Dr. Jerome who recommended surgical resection as the patient was having recurrent seizures. Unfortunately the patient did not proceed with surgery then. He has been managing his seizures with Keppra. He ran out of his medication and suffered a breakthrough seizure recently and was seen at [place] ED. He has now receive new prescription for his seizure medications and has not had any further seizures since he was discharged from the emergency room. He is admitted today for cerebral angiogram and for resection of brain mass tomorrow. CBC/BMP: 06/12/17 0953 06/13/17 0520 Significant Findings Laboratory Tests Test 06/11/17 18:20 06/12/17 01:11 06/12/17 08:05 06/12/17 09:53 Red Blood Count 2.70 MIL/MM3 (4.50-5.90) Hemoglobin 8.5 GM/DL (13.0-17.0) Hematocrit 24.3 % (39.0-51.0) Blood Urea Nitrogen 4 MG/DL (7-18) Test 06/12/17 13:50 06/12/17 20:07 06/13/17 01:45 06/13/17 05:20 Blood Urea Nitrogen 3 MG/DL (7-18) Test 06/13/17 07:35 06/13/17 09:11 06/13/17 15:50 06/14/17 06:15 Urine Opiates Screen POS (NEG) Urine Benzodiazepines Screen POS (NEG) Discharge Disposition: Discharge Home Discharge Instructions DIET: Follow Instructions for: As Tolerated, No Restrictions ADDITIONAL Activity Instructio: Avoid strenuous activities, avoid falls or head trauama. Karrie Shell Jun 14, 2017 13:08
== END 2017-06-14 14:15 | disposition home or self-care (01) | DRG 26 ==
LOC: N05A 07:06 → N03B 13:35 → N03A 17:36 → N03B 06-10 10:05 → N03A 06-10 10:06 → N05A 06-13 14:16
PROVIDERS: ADMIT Neurological Surgery; ATTEND Neurological Surgery
PROC: 03LY3DZ Occlusion of Upper Artery with Intraluminal Device, Percutaneous Approach (ICD-10-PCS; 2017-06-09)
PROC: B31F1ZZ Fluoroscopy of Left Vertebral Artery using Low Osmolar Contrast (ICD-10-PCS; 2017-06-09)
PROC: B31D1ZZ Fluoroscopy of Right Vertebral Artery using Low Osmolar Contrast (ICD-10-PCS; 2017-06-09)
PROC: B31C1ZZ Fluoroscopy of Bilateral External Carotid Arteries using Low Osmolar Contrast (ICD-10-PCS; 2017-06-09)
PROC: B3171ZZ Fluoroscopy of Left Internal Carotid Artery using Low Osmolar Contrast (ICD-10-PCS; 2017-06-09)
PROC: B3161ZZ Fluoroscopy of Right Internal Carotid Artery using Low Osmolar Contrast (ICD-10-PCS; 2017-06-09)
PROC: 00B10ZZ Excision of Cerebral Meninges, Open Approach (ICD-10-PCS; principal; 2017-06-10 10:07)
DX: D32.0 Benign neoplasm of cerebral meninges (principal); F19.20 Other psychoactive substance dependence, uncomplicated; F41.9 Anxiety disorder, unspecified; F17.210 Nicotine dependence, cigarettes, uncomplicated; G40.909 Epilepsy, unspecified, not intractable, without status epilepticus; Z86.14 Personal history of Methicillin resistant Staphylococcus aureus infection; R20.0 Anesthesia of skin
CPT/HCPCS: 36223; 36224; 36226; 61626; 70450; 70552; 71045; 75894; 76937; 80048; 80307; 82805; 83930; 85025; 85027; 85610; 85730; 86850; 86900; 86901; 86920; 87641; 88307; 88331; 93005; 99152; 99153; A9579; C1713; C1769; C1887; C1894; C9113; J0131; J0690; J1170; J1580; J1644; J1940; J1953; J2060; J2150; J2250; J2270; J3010; J3370; J3480; J7030; J7040; J7050; Q0163; Q9967

== ENCOUNTER 2017-08-12 10:57 | Inpatient (IN) | payer SELFPAY ==
[~2017-08-12] VITALS: Ht 182.9 cm; Wt 71.1 kg
[2017-08-12] VITALS (10 sets, daily range): BP systolic 119–150; BP diastolic 56–87; PULSE 89–117; RESP 11–20; TEMP 97.3–102.3; O2SAT 95–100
[~2017-08-12 10:57] MED LIST changes: +OXYC1TAB36 PO
[2017-08-12] MEDS ORDERED: SODIUM CHLOR 0.9% 1000 ML INJ 1,000 ML IV ONE ×2 (11:30→13:00)
[2017-08-12] MEDS ORDERED: levETIRAcetam INJ 100 ML IV ONE (11:30)
--- NOTE | 2017-08-12 11:31 | PD ---
HPI Chief Complaint: Seizure Time Seen by Provider: 11:20 Travel History International Travel<30 days: No Contact w/Intl Traveler<30days: No Traveled to known affect area: No History of Present Illness HPI 31yo M with PMH of right parietal meningioma s/p resection by Dr. Gant was brought in by evaluation after seizure. Pt said he is suppose to be on keppra 500mg BID but forgot to take the keppra this morning. Had seizure around 10am and he was a front seat passenger when it happened. Denies any fever, chest pain, sob, abdominal pain, focal weakness or numbness. Said he had vomiting this morning. PFSH Past Medical History Autoimmune Disease: No Cancer: No Chemotherapy: No Diminished Hearing: No Endocrine: No Immune Disorder: No Neurologic: Yes (brain mass per pt REMOVED) Psychiatric: No Radiation Therapy: No Seizures: Yes Tetanus Vaccination: < 5 Years Influenza Vaccination: No Past Surgical History Other Surgery: Yes (BRAIN SURGERY) Social History Alcohol Use: No Tobacco Use: Yes (1 PPD) Substance Use: Yes (dilaudid MARIJUANA, COCAINE WEEK AGO) Allergies-Medications (Allergen,Severity, Reaction): Coded Allergies: penicillin G (Verified Allergy, Mild, 08/12/17) *MDRO Multi-Drug Resistant Organism (Verified Allergy, Unknown, 08/12/17) MRSA 2013 Reported Meds & Prescriptions Reported Meds & Active Scripts Active Keppra (Levetiracetam) 500 Mg Tab 500 Mg PO BID Review of Systems Except as stated in HPI: all other systems reviewed are Neg Physical Exam Narrative GENERAL: 31yo M in mild distress. SKIN: Focused skin assessment warm/dry. HEAD: +Right parietal surgical scar. EYES: Pupils equal and round at 3mm bilaterally. EOMI. ENT: No nasal bleeding or discharge. Mucous membranes pink and moist. NECK: Trachea midline. No JVD. No nuchal rigidity. CARDIOVASCULAR: Regular rate and rhythm. No murmur appreciated. RESPIRATORY: No accessory muscle use. Clear to auscultation. Breath sounds equal bilaterally. GASTROINTESTINAL: Abdomen soft, non-tender, nondistended. MUSCULOSKELETAL: No obvious deformities. No clubbing. No cyanosis. No edema. NEUROLOGICAL: Awake and alert. No obvious cranial nerve deficits. Motor grossly within normal limits in all extremities. Sensation intact and equal. Normal speech. PSYCHIATRIC: Appropriate mood and affect; insight and judgment normal. Data Data Last Documented VS Vital Signs Date Time Temp Pulse Resp B/P (MAP) Pulse Ox O2 Delivery O2 Flow Rate FiO2 08/12/17 12:23 100.0 103 20 139/76 (97) 97 Room Air Orders Orders Complete Blood Count With Diff (08/12/17 11:27) Basic Metabolic Panel (Bmp) (08/12/17 11:27) Act Partial Throm Time (Ptt) (08/12/17 11:27) Prothrombin Time / Inr (Pt) (08/12/17 11:27) Magnesium (Mg) (08/12/17 11:27) Ct Brain W/O Iv Contrast(Rout) (08/12/17 ) Levetiracetam Inj (Keppra Inj) (08/12/17 11:30) Sodium Chlor 0.9% 1000 Ml Inj (Ns 1000 M (08/12/17 11:30) Acetaminophen (Tylenol) (08/12/17 12:30) Blood Culture (08/12/17 12:29) Lactic Acid Sepsis Protocol (08/12/17 12:29) Vancomycin Inj (Vancomycin Inj) (08/12/17 12:45) Moxifloxacin 400 Mg Premix (Avelox 400 M (08/12/17 12:45) Potassium Chloride (Kcl) (08/12/17 12:45) Sodium Chlor 0.9% 1000 Ml Inj (Ns 1000 M (08/12/17 13:00) Influenzae A/B Antigen (08/12/17 13:10) Admit Order (Ed Use Only) (08/12/17 13:10) Labs Laboratory Tests Test 08/12/17 10:58 08/12/17 12:55 White Blood Count 18.8 TH/MM3 Red Blood Count 4.46 MIL/MM3 Hemoglobin 11.0 GM/DL Hematocrit 34.8 % Mean Corpuscular Volume 78.0 FL Mean Corpuscular Hemoglobin 24.7 PG Mean Corpuscular Hemoglobin Concent 31.7 % Red Cell Distribution Width 16.9 % Platelet Count 316 TH/MM3 Mean Platelet Volume 9.1 FL Neutrophils (%) (Auto) 87.3 % Lymphocytes (%) (Auto) 3.6 % Monocytes (%) (Auto) 8.5 % Eosinophils (%) (Auto) 0.3 % Basophils (%) (Auto) 0.3 % Neutrophils # (Auto) 16.3 TH/MM3 Lymphocytes # (Auto) 0.7 TH/MM3 Monocytes # (Auto) 1.6 TH/MM3 Eosinophils # (Auto) 0.1 TH/MM3 Basophils # (Auto) 0.1 TH/MM3 CBC Comment AUTO DIFF Differential Comment AUTO DIFF CONFIRMED Prothrombin Time 11.6 SEC Prothromb Time International Ratio 1.1 RATIO Activated Partial Thromboplast Time 25.3 SEC Blood Urea Nitrogen 5 MG/DL Creatinine 1.20 MG/DL Random Glucose 147 MG/DL Calcium Level 8.7 MG/DL Magnesium Level 1.8 MG/DL Sodium Level 134 MEQ/L Potassium Level 3.3 MEQ/L Chloride Level 98 MEQ/L Carbon Dioxide Level 24.7 MEQ/L Anion Gap 11 MEQ/L Estimat Glomerular Filtration Rate 71 ML/MIN Lactic Acid Level 1.5 mmol/L MDM Medical Decision Making Medical Screen Exam Complete: Yes Emergency Medical Condition: Yes Differential Diagnosis Seizure secondary to missing keppra dose vs. infection Narrative Course 31yo M with right parietal meningioma s/p right occipital craniotomy 06/15/17 here with episode of seizure. Temp is 102.3F at triage but repeat temp without any medication in the medical bed was 99.5F. It is difficult to assess whether the first temperature was accurate. Pt does complain of headache and is tachycardic. 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 No new areas of hemorrhage. Pt said he follows with Dr. Gant but unsure when he last saw him. Said he has not had a seizure since the surgery. Given the fever and headache, it is difficult to rule out meningitis and pt is refusing lumbar puncture. Pt empirically cover with vancomycin and moxifloxacin because of penicillin allergy. Discussed with Dr. Gant who said this is a neurology issue and pt will need to have seizure evaluation by neurology. Pt does not have a neurologist and does not follow up as outpatient. Unknown who gives him the keppra. Labs reviewed, leukocytosis at 18.8, can be from infection or seizure. H/H 34.8. Mild hypokalemia at 3.3, replaced orally. Pt is AAOx3 and can refuse lumbar puncture. 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 Pt given keppra 1gm bolus, NS IVFx2 and acetaminophen. Discussed with Dr. Holden and accepted to his service. Critical Care Narrative Aggregate critical care time was 40 minutes. Time to perform other separately billable procedures was not included in the critical care time. My time did not include minutes spent treating any other patients simultaneously or on activities that did not directly contribute to the patient's treatment. The services I provided to this patient were to treat and/or prevent clinically significant deterioration that could result in: cardiovascular collapse or . I provided critical care services requiring my management, as noted below: Chart data review, documentation time, medication orders and management, vital sign assessments/reviewing monitor data, ordering and reviewing lab tests, ordering and interpreting/reviewing x-rays and diagnostic studies, care of the patient and discussion of the patient with the admitting physicians. Sepsis Criteria SIRS Criteria (2 or more): Temp > 100.9 or < 96.8, Heart rate over 90 Sepsis Criteria (SIRS+source): Infect source susp/known Diagnosis Primary Impression: Sepsis Qualified Codes: A41.9 - Sepsis, unspecified organism Additional Impression: Seizure Admitting Information Admitting Physician Requests: Talia Overton DO Aug 12, 2017 11:31
[2017-08-12 11:43] LABS: AUTOMATED NEUTROPHIL # 16.3 TH/MM3 (1.8-7.7); BASOPHIL # 0.1 TH/MM3 (0-0.2); BASOPHIL % 0.3 % (0.0-2.0); EOSINOPHIL # 0.1 TH/MM3 (0-0.4); EOSINOPHIL % 0.3 % (0.0-4.0); HEMATOCRIT 34.8 % (39.0-51.0); LYMPH % 3.6 % (9.0-44.0); LYMPHOCYTE # 0.7 TH/MM3 (1.0-4.8); MEAN CORPUSCULAR HEMOGLOBIN 24.7 PG (27.0-34.0); MEAN CORPUSCULAR HGB CONC 31.7 % (32.0-36.0); MEAN PLATELET VOLUME 9.1 FL (7.0-11.0); MONO % 8.5 % (0.0-8.0); MONOCYTE # 1.6 TH/MM3 (0-0.9); NEUT % 87.3 % (16.0-70.0); PLATELET COUNT 316 TH/MM3 (150-450); RED BLOOD COUNT 4.46 MIL/MM3 (4.50-5.90); RED CELL DISTRIBUTION WIDTH 16.9 % (11.6-17.2); WHITE BLOOD COUNT 18.8 TH/MM3 (4.0-11.0)
--- NOTE | 2017-08-12 11:49 | RADRPT ---
EXAM DATE/TIME: 08/12/2017 11:37 [facility] COMPARISON: CT BRAIN W/O CONTRAST, June 10, 2017, 15:58. INDICATIONS : Seizure. Cephalgia. RADIATION DOSE: 63.15 CTDIvol (mGy) MEDICAL HISTORY : Seizures. Brain mass. SURGICAL HISTORY : Craniotomy. ENCOUNTER: Initial ACUITY: 1 day PAIN SCALE: 7/10 LOCATION: cranial TECHNIQUE: Multiple contiguous axial images were obtained of the head. Using automated exposure control and adj ustment of the mA and/or kV according to patient size, radiation dose was kept as low as reasonably a chievable to obtain optimal diagnostic quality images. DICOM format image data is available electro nically for review and comparison. FINDINGS: Patient had a larged hemorrhage in the parietal-occipital region. The large area of hemorrhage has b een replaced by larger area of porencephaly.. The left hemisphere is unremarkable and ventricle size is appropriate. There no extra-axial fluid collections. There are no new areas of hemorrhage. Posterior fossa is unremarkable. Orbits and visual sinuses are unremarkable. CONCLUSION: Table CT scan of the head following the large hemorrhage right parietal occipital region. Connor Herbert MD FACR on August 12, 2017 at 11:45 Board Certified Radiologist. This report was verified electronically.
[2017-08-12 11:54] LABS: CALCIUM 8.7 MG/DL (8.5-10.1)
[2017-08-12 11:55] LABS: BICARBONATE 24.7 MEQ/L (21.0-32.0); MAGNESIUM 1.8 MG/DL (1.5-2.5)
[2017-08-12 11:56] LABS: INTERNATIONAL NORMALIZED RATIO 1.1 RATIO; PROTHROMBIN TIME - PATIENT 11.6 SEC (9.8-11.6)
[2017-08-12 11:59] LABS: CREATININE 1.2 MG/DL (0.60-1.30)
[2017-08-12] MEDS ORDERED: ACETAMINOPHEN 500 MG CPLT PO ONE (12:30)
[2017-08-12] MEDS ORDERED: POTASSIUM CHLORIDE 20 MEQ CONTROLLED RELEASE TAB PO ONE (12:45)
[2017-08-12] MEDS ORDERED: MOXIFLOXACIN 400 MG PREMIX 250 ML IV ONE (12:45)
[2017-08-12] MEDS ORDERED: VANCOMYCIN INJ 1,100 MG in SODIUM CHLOR 0.9% 250 ML INJ 250 ML IV ONE (12:45)
[2017-08-12] MEDS ORDERED: SODIUM CHLORIDE 0.9% FLUSH 10 ML FLUSH IV FLUSH PRN (13:15)
[2017-08-12] MEDS ORDERED: MAGNESIUM HYDROXIDE SUSP 30 ML CUP PO PRN (13:15)
[2017-08-12] MEDS ORDERED: ONDANSETRON HCL 4 MG/2 ML VIAL IVP PRN (13:15)
[2017-08-12] MEDS ORDERED: NALOXONE HCL 0.4 MG/ML AMP IV PUSH PRN (13:15)
[2017-08-12] MEDS ORDERED: LORazepam 2 MG/ML VIAL IV PUSH PRN (13:30)
[2017-08-12] MEDS ORDERED: Vancomycin Consult Pharmacy 1 EA OTHER SCH (14:00)
[2017-08-12] MEDS: SODIUM CHLOR 0.9% 1000 ML INJ 1,000 ML IV SCH ×3 (15:52→23:13)
[2017-08-12] MEDS ORDERED: POTASSIUM CHLORIDE 10 MEQ CONTROLLED RELEASE TAB PO ONE (17:45)
[2017-08-12] MEDS: metroNIDAZOLE 500 MG INJ 100 ML IV SCH (17:50)
--- NOTE | 2017-08-12 18:00 | HHI.HP ---
[facility] No Primary Care Physician Admission Diagnosis Sepsis, seizure Diagnoses: Travel History International Travel<30 Days: No Contact w/Intl Traveler <30 Da: No Traveled to Known Affected Are: No Sepsis Criteria SIRS Criteria (2 or more): Temp > 100.9 or < 96.8, Heart rate over 90, WBC > 55645, < 4000 or > 10% bands Sepsis Criteria (SIRS+source): Infect source susp/known History of Present Illness Mr. Dunn is a 31 year old male. He has a history of prior seizures and has been on Keppra BID for this. He did not take his Keppra dose this morning and had a seizure while riding as a passenger (in a car). Etiology may be related to missed medication, however he also has a fever, leukocytosis, and tachycardia which could suggest infection. Sepsis criteria are present. Flu study pending. Recent history of brain surgery with healing wound would be a potential source of infection. Alternatively, he has a history of drug abuse. Recent abuse is denied. Any recent use could contribute to seizure and/or fever. Patient is not very cooperative with history of this point. He does demonstrate that he is alert and oriented 3 when he needs to use the urinal but is otherwise obstinate in answering most questions. Review of Systems ROS Limitations: Uncooperative, Refused, Poor Historian Neurologic: COMPLAINS OF: Seizures Past Family Social History Past Medical History History of right parietal meningioma Seizure disorder Past Surgical History History of brain resection - June 2017 Reported Medications Reported Meds & Active Scripts Active Keppra (Levetiracetam) 500 Mg Tab 500 Mg PO BID Allergies: Coded Allergies: penicillin G (Verified Allergy, Mild, 08/12/17) *MDRO Multi-Drug Resistant Organism (Verified Allergy, Unknown, 08/12/17) MRSA 2013 Active Ordered Medications Administered Medications Medications (Trade) Dose Ordered Sig/Cliff Route PRN Reason Start Time Stop Time Status Last Admin Dose Admin Sodium Chloride 1,000 ml @ 100 mls/hr Q10H IV 08/12/17 13:13 08/12/17 15:52 Metronidazole 100 ml @ 100 mls/hr Q8H IV 08/12/17 18:00 08/12/17 17:50 Sodium Chloride 1,000 ml @ 75 mls/hr [id number] IV 08/12/17 17:51 08/12/17 17:51 Family History None known Social History Denies recent drug use - history of Dilaudid and cocaine abuse History of marijuana use Denies alcohol abuse Denies smoking Physical Exam Vital Signs Vital Signs Date Time Temp Pulse Resp B/P (MAP) Pulse Ox O2 Delivery O2 Flow Rate FiO2 08/12/17 16:00 99.1 95 16 129/76 (93) 98 08/12/17 14:30 99.6 107 16 123/68 (86) 98 08/12/17 13:50 08/12/17 13:38 100.2 98 18 150/83 (105) 98 Room Air 08/12/17 12:23 100.0 103 20 139/76 (97) 97 Room Air 08/12/17 11:16 99.5 110 20 149/87 (107) 96 Room Air 08/12/17 11:09 117 20 100 Room Air 08/12/17 10:57 102.3 117 20 145/70 (95) 100 Physical Exam GENERAL: NAD, A&Ox3, uncooperative HEAD: Normocephalic. NECK: Supple, trachea midline. No lymphadenopathy. EYES: No scleral icterus. No injection or drainage. CARDIOVASCULAR: Regular rate and rhythm without murmurs, gallops, or rubs. RESPIRATORY: Breath sounds equal bilaterally. No accessory muscle use. GASTROINTESTINAL: Abdomen soft, non-tender, nondistended. MUSCULOSKELETAL: No cyanosis, or edema. SKIN: Warm and dry. Midline scalp wound with area of mild drainage of posterior scalp NEURO: No focal neurological deficitis. Laboratory Laboratory Tests Test 08/12/17 10:58 08/12/17 12:55 White Blood Count 18.8 Red Blood Count 4.46 Hemoglobin 11.0 Hematocrit 34.8 Mean Corpuscular Volume 78.0 Mean Corpuscular Hemoglobin 24.7 Mean Corpuscular Hemoglobin Concent 31.7 Red Cell Distribution Width 16.9 Platelet Count 316 Mean Platelet Volume 9.1 Neutrophils (%) (Auto) 87.3 Lymphocytes (%) (Auto) 3.6 Monocytes (%) (Auto) 8.5 Eosinophils (%) (Auto) 0.3 Basophils (%) (Auto) 0.3 Neutrophils # (Auto) 16.3 Lymphocytes # (Auto) 0.7 Monocytes # (Auto) 1.6 Eosinophils # (Auto) 0.1 Basophils # (Auto) 0.1 CBC Comment AUTO DIFF Differential Comment AUTO DIFF CONFIRMED Prothrombin Time 11.6 Prothromb Time International Ratio 1.1 Activated Partial Thromboplast Time 25.3 Blood Urea Nitrogen 5 Creatinine 1.20 Random Glucose 147 Calcium Level 8.7 Magnesium Level 1.8 Sodium Level 134 Potassium Level 3.3 Chloride Level 98 Carbon Dioxide Level 24.7 Anion Gap 11 Estimat Glomerular Filtration Rate 71 Lactic Acid Level 1.5 Date/Time Source Procedure Growth Status 08/12/17 11:00 Blood Peripheral Aerobic Blood Culture Pending Received 08/12/17 11:00 Blood Peripheral Anaerobic Blood Culture Pending Received 08/12/17 13:10 Nasal Aspirate Influenza Types A,B Antigen (HELLEN) - Final NEGATIVE FOR FLU A AND B ANTIGEN.... Complete Result Diagram: 08/12/17 1058 08/12/17 1058 Imaging Last Impressions Head CT 08/12/17 0000 Signed Impressions: Service Date/Time: Saturday, August 12, 2017 11:37 - CONCLUSION: Table CT scan of the head following the large hemorrhage right parietal occipital region. Connor Herbert MD FACR Caprini VTE Risk Assessment Caprini VTE Risk Assessment: No/Low Risk (score <= 1) Caprini Risk Assessment Model Point Value = 1 Point Value = 2 Point Value = 3 Point Value = 5 Age 41-60 Minor surgery BMI > 25 kg/m2 Swollen legs Varicose veins or History of unexplained or recurrent spontaneous Oral contraceptives or hormone replacement Sepsis (< 1 month) Serious lung disease, including pneumonia (< 1 month) Abnormal pulmonary function Acute myocardial infarction Congestive heart failure (< 1 month) History of inflammatory bowel disease Medical patient at bed rest Age 61-74 Arthroscopic surgery Major open surgery (> 45 min) Laparoscopic surgery (> 45 min) Malignancy Confined to bed (> 72 hours) Immobilizing plaster cast Central venous access Age >= 75 History of VTE Family history of VTE Factor V Leiden Prothrombin [id number] Lupus anticoagulant Anticardiolipin antibodies Elevated serum homocysteine Heparin-induced thrombocytopenia Other congenital or acquired thrombophilia Stroke (< 1 month) Elective arthroplasty Hip, pelvis, or leg fracture Acute spinal cord injury (< 1 month) Prophylaxis Regimen Total Risk Factor Score Risk Level Prophylaxis Regimen 0-1 Low Early ambulation 2 Moderate Order ONE of the following: *Sequential Compression Device (SCD) *Heparin 5000 units SQ BID 3-4 Higher Order ONE of the following medications: *Heparin 5000 units SQ TID *Enoxaparin/Lovenox 40 mg SQ daily (WT < 150 kg, CrCl > 30 mL/min) *Enoxaparin/Lovenox 30 mg SQ daily (WT < 150 kg, CrCl > 10-29 mL/min) *Enoxaparin/Lovenox 30 mg SQ BID (WT < 150 kg, CrCl > 30 mL/min) AND/OR *Sequential Compression Device (SCD) 5 or more Highest Order ONE of the following medications: *Heparin 5000 units SQ TID (Preferred with Epidurals) *Enoxaparin/Lovenox 40 mg SQ daily (WT < 150 kg, CrCl > 30 mL/min) *Enoxaparin/Lovenox 30 mg SQ daily (WT < 150 kg, CrCl > 10-29 mL/min) *Enoxaparin/Lovenox 30 mg SQ BID (WT < 150 kg, CrCl > 30 mL/min) AND *Sequential Compression Device (SCD) Assessment and Plan Problem List: (1) Mass, brain ICD Code: G93.9 - Disorder of brain, unspecified Status: Acute (2) Seizure ICD Code: R56.9 - Unspecified convulsions Status: Acute Assessment and Plan 31 year old male admitted with acute seizure and evidence of sepsis. Brain surgery for meningioma in June 2017. Sepsis Could be viral and false positive, but suspect for bacterial infection given leukocytosis May be related to head wound Wound culture obtained Follow CBC Vancomycin Flagyl Follow cultures Seizure Continue Keppra Neurology consulted and following Keppra dosing increased EEG obtained Seizure precautions Follow in ICU History of Brain Mass Recent Brain Surgery, healing wound Scalp wound cultured Cover with vancomycin and flagyl Neurosurgery consult MRI of head ordered DVT Prophylaxis SCDs Avoid blood thinners given recent brain surgery Physician Certification 2 Midnight Certification Type: Admission for Inpatient Services Order for Inpatient Services The services are ordered in accordance with Medicare regulations or non- Medicare payer requirements, as applicable. In the case of services not specified as inpatient-only, they are appropriately provided as inpatient services in accordance with the 2-midnight benchmark. Estimated LOS (days): 3 days is the estimated time the patient will need to remain in the hospital, assuming treatment plan goals are met and no additional complications. Post-Hospital Plan: Mark Galeana MD Aug 12, 2017 18:00
--- NOTE | 2017-08-12 19:46 | MB ---
cc: Glenn Richmond MD DATE OF CONSULT: A 31-year-old man who is not giving me any history, but going from the chart, he has a history of right meningioma removal, right middle meningeal artery embolectomy. He has been Keppra 500 b.i.d. He says he has 3 seizures. He had a seizure about 10:00 this morning, was a front seat passenger when it occurred. He denied any fever in the ER. He did vomit, however. SOCIAL HISTORY: Not a drinker. He does smoke 1 pack a day. He uses Dilaudid, marijuana, cocaine about a week ago. ALLERGIES: PENICILLIN. MEDICATIONS: He has been on Keppra 500 b.i.d. REVIEW OF SYSTEMS: Really, he is not cooperative. I cannot get any real great history from him. PAST MEDICAL HISTORY: He was seen in June in [place]. He was complaining of left-sided weakness then. He was looking for narcotics then. Evidently, does not have insurance. Reason he was admitted on 05/14/2017, was right brain mass, increasing in size, [facility], supposed to undergo tumor resection. He was on Keppra at that time. He was having recurrent seizures. He did not have surgery. He was evidently electively admitted for surgery. He had a 5.8 x 4.6 cm hyperdense mass in the right parietal region consistent with meningioma. He had the surgery done on 06/15 and admitted now for another seizure. PHYSICAL EXAMINATION: VITAL SIGNS: 99, T-max 102.3 this morning, now 99.1. GENERAL: He is on isolation. NEUROLOGIC: He is not cooperative to exam. Shrugs his shoulders mainly. His visual horne, however, appear full. He did cooperate with that for me. He would not stick his tongue out for me or smile, but I did see his poor dentition. He moved all of his extremities well. The toes appears to be downgoing. There was no ankle clonus, laying on his right side. He does open his eyes and look at me and then closes them and shrugs. He says he has had 3 seizures, so he does talk and he does follow some commands. LABORATORY AND DIAGNOSTIC DATA: His white count is 18,000, hm is 35, platelet count 316. Urine drug screen positive for benzos and opiates on 06/13/2017. His BMP, sodium is 134. Otherwise, BMP was normal. Lactic acid 1.5. Calcium and magnesium normal. LFTs were normal last month. Coags were normal. CAT scan of the brain done today, he has a large hemorrhage in the right parietal region. The larger hemorrhage has been replaced by a larger area of porencephaly, or he had the meningioma and it was read as a hemorrhage prior. Review of the films from today, there is a large area of encephalomalacia in the high right parietal region. There was brain MRI done in June, which showed a very large meningioma at that time, somewhat in the right parietal occipital region high up. This was a preop MRI that was done. He had a head CT in May, which the mass and it was very large at that time with some mild posterior midline shift. IMPRESSION: Status post right meningioma removal, status post seizure here. I would increase his Keppra to 1500 b.i.d. He has blood cultures that were drawn. He has been put on some antibiotics. He should be on seizure precautions. We will check an electroencephalogram and an MRI of the brain to make sure there is no infection or abscess around the surgical site. MD EVER Hartley/ADELE , 05:56 PM , 07:45 PM
[2017-08-12] MEDS ORDERED: GADODIAMIDE PF 287 MG/ML 20 ML VIAL (for RAD MRI) IVCONTRAST ONE (20:15)
--- NOTE | 2017-08-12 20:39 | RADRPT ---
EXAM DATE/TIME: 08/12/2017 20:15 [facility] COMPARISON: MRI BRAIN STEALTH W CONTRAST, June 10, 2017, 9:00. CT BRAIN W/O CONTRAST, June 10, 2017, 15:[address] BRAIN W/O CONTRAST, August 12, 2017, 11:37. MRI BRAIN W & W/O CONTRAST, July 14, 2016, 21 :15. INDICATIONS : Abscess. CONTRAST: 14 cc Omniscan (gadodiamide) IV MEDICAL HISTORY : Seizures. SURGICAL HISTORY : Craniotomy. ENCOUNTER: Initial ACUITY: 1 day PAIN SCORE: 0/10 LOCATION: cranial TECHNIQUE: Multiplanar, multisequence MRI of the brain was performed both prior to and following the administrat ion of paramagnetic contrast. FINDINGS: Patient underwent surgical removal of large right occipital meningioma in June 2017. At the surgi obdulio site, there is fluid filling the surgical cavity measuring 5.2 cm. There is a heterogeneous sign al posteriorly with some serpiginous areas of susceptibility artifact and dark signal on T2 weighted scan characteristic of some chronic blood products. On the postcontrast images, there are no focal a reas of abnormal enhancement. Expected scalp thickening at the surgical site. No focal areas of restricted diffusion seen. The re mainder of the supratentorial brain is stable in appearance. No abnormal areas of enhancement seen i n the super infratentorial brain. CONCLUSION: There is linear chronic blood products about the posterior aspect of the surgical cavity at meningiom a resection site. No abnormal areas of enhancement seen. Pasha Tyson MD on August 12, 2017 at 20:33 Board Certified Radiologist. This report was verified electronically.
[2017-08-12] MEDS: MORPHINE SULFATE 2 MG/ML INJ IV PUSH PRN ×2 (20:40→23:23)
[2017-08-12] MEDS: SODIUM CHLORIDE 0.9% FLUSH 10 ML FLUSH IV FLUSH SCH (20:41)
[2017-08-12] MEDS ORDERED: levETIRAcetam INJ 1,500 MG in SODIUM CHLORIDE 0.9% INJ 100 ML IV SCH (23:00)
[2017-08-12] MEDS ORDERED: levETIRAcetam INJ 500 MG in SODIUM CHLORIDE 0.9% INJ 100 ML IV SCH (23:00)
[2017-08-12] MEDS: levETIRAcetam INJ 1,500 MG in SODIUM CHLORIDE 0.9% INJ 100 ML IV SCH (23:21)
[2017-08-12] MEDS: VANCOMYCIN INJ 1,250 MG in SODIUM CHLOR 0.9% 250 ML INJ 250 ML IV SCH (23:21)
[2017-08-12] MEDS ORDERED: CHLORHEXIDINE GLUCONATE 2 % 1 PACK (2 CLOTHS)(extra cloths) TOPICAL PRN (23:30)
[2017-08-13] VITALS (33 sets, daily range): BP systolic 110–154; BP diastolic 47–92; PULSE 68–104; RESP 6–39; TEMP 98.4–100.9; O2SAT 88–100
[2017-08-13] MEDS ORDERED: VANCOMYCIN INJ 1,000 MG in SODIUM CHLOR 0.9% 250 ML INJ 250 ML IV SCH (01:00)
[2017-08-13] MEDS ORDERED: oxyCODONE/ACETAMINOPHEN 10 MG/325 MG TAB PO ONE (01:45)
[2017-08-13] MEDS: metroNIDAZOLE 500 MG INJ 100 ML IV SCH ×3 (02:02→17:14)
[2017-08-13] MEDS: MORPHINE SULFATE 2 MG/ML INJ IV PUSH PRN ×5 (02:36→22:31)
[2017-08-13 03:18] LABS: BILIRUBIN, URINE NEG (NEG); BLOOD, URINE NEG (NEG); GLUCOSE,URINE NEG (NEG); KETONE, URINE 15 mg/dL (NEG); NITRITE,URINE NEG (NEG); URINE COLOR YELLOW (YELLW/STRAW); URINE LEUKOCYTE ESTERASE NEG (NEG)
[2017-08-13 03:40] LABS: RBC, URINE 0-2 /hpf (0-3); SQUAMOUS EPITHELIAL CELL URINE 0-5 /hpf (0-5)
[2017-08-13] MEDS: CHLORHEXIDINE GLUCONATE 2 % 1 PACK (2 CLOTHS)(taper/protocol) TOPICAL SCH (04:00)
[2017-08-13 06:40] LABS: AUTOMATED NEUTROPHIL # 21.6 TH/MM3 (1.8-7.7); BASOPHIL % 0.1 % (0.0-2.0); EOSINOPHIL % 0.1 % (0.0-4.0); HEMATOCRIT 31.7 % (39.0-51.0); HEMOGLOBIN 9.9 GM/DL (13.0-17.0); LYMPH % 3.8 % (9.0-44.0); LYMPHOCYTE # 0.9 TH/MM3 (1.0-4.8); MEAN CELL VOLUME 78.3 FL (80.0-100.0); MEAN CORPUSCULAR HEMOGLOBIN 24.5 PG (27.0-34.0); MEAN CORPUSCULAR HGB CONC 31.2 % (32.0-36.0); MEAN PLATELET VOLUME 8.9 FL (7.0-11.0); MONO % 6.8 % (0.0-8.0); MONOCYTE # 1.6 TH/MM3 (0-0.9); NEUT % 89.2 % (16.0-70.0); PLATELET COUNT 266 TH/MM3 (150-450); RED BLOOD COUNT 4.04 MIL/MM3 (4.50-5.90); RED CELL DISTRIBUTION WIDTH 17.2 % (11.6-17.2); WHITE BLOOD COUNT 24.1 TH/MM3 (4.0-11.0)
[2017-08-13 06:48] LABS: CHLORIDE 105 MEQ/L (98-107); SODIUM (NA) 137 MEQ/L (136-145)
[2017-08-13 06:54] LABS: ALBUMIN 2.8 GM/DL (3.4-5.0); BICARBONATE 23.2 MEQ/L (21.0-32.0); CALCIUM 8.4 MG/DL (8.5-10.1)
[2017-08-13 06:55] LABS: BLOOD UREA NITROGEN 6 MG/DL (7-18); GLUCOSE,RANDOM 102 MG/DL (74-106)
[2017-08-13 06:57] LABS: ALT (GPT) 47 U/L (12-78)
[2017-08-13 06:58] LABS: AST (GOT) 20 U/L (15-37); CREATININE 0.67 MG/DL (0.60-1.30); GLOMERULAR FILTRATION RATE 139 ML/MIN (>89)
[2017-08-13 06:59] LABS: TOTAL BILIRUBIN ADULT 0.6 MG/DL (0.2-1.0); TOTAL PROTEIN 6.1 GM/DL (6.4-8.2)
[2017-08-13 07:01] LABS: ALKALINE PHOSPHATASE 80 U/L (45-117)
[2017-08-13] MEDS: SODIUM CHLOR 0.9% 1000 ML INJ 1,000 ML IV SCH ×3 (07:11→20:31)
[2017-08-13 07:14] LABS: BANDS 9 % (0-6); LYMPHOCYTES 7 % (9-44); MONOCYTES 9 % (0-8); NEUTROPHIL # MANUAL DIFF 20.2 TH/MM3 (1.8-7.7); POLYS (SEG NEUTROPHILS) 75 % (16-70)
[2017-08-13] MEDS: SODIUM CHLORIDE 0.9% FLUSH 10 ML FLUSH IV FLUSH SCH ×2 (10:06→21:15)
[2017-08-13] MEDS: VANCOMYCIN INJ 1,250 MG in SODIUM CHLOR 0.9% 250 ML INJ 250 ML IV SCH ×2 (10:18→23:44)
[2017-08-13] MEDS: levETIRAcetam INJ 1,500 MG in SODIUM CHLORIDE 0.9% INJ 100 ML IV SCH ×2 (10:23→22:19)
[2017-08-13] MEDS ORDERED: oxyCODONE/ACETAMINOPHEN 5 MG/325 MG TAB PO PRN (14:00)
--- NOTE | 2017-08-13 16:54 | HHI.PR ---
Subjective Remarks Patient able to provide more history today. He complains of headache and neck pain and back pain. He still refuses lumbar puncture. With antibiotics fevers have improved. She can't think of any other area of infection. He does have a finger injury in his right hand but that's not significant for the cause of the degree of his infection or sepsis. Objective Vital Signs Date Time Temp Pulse Resp B/P (MAP) Pulse Ox O2 Delivery O2 Flow Rate FiO2 08/13/17 14:45 80 18 125/70 (88) 100 08/13/17 14:00 102 08/13/17 13:45 92 14 135/77 (96) 100 08/13/17 13:00 84 17 144/85 (104) 08/13/17 12:00 86 08/13/17 11:45 88 15 141/92 (108) 97 08/13/17 11:45 99.3 88 15 141/92 (108) 97 08/13/17 10:45 100 08/13/17 10:45 100 39 08/13/17 10:45 100 39 130/71 (90) 08/13/17 10:06 142/83 (102) 08/13/17 09:28 104 39 145/88 (107) 08/13/17 08:45 84 14 126/73 (90) 08/13/17 08:45 84 08/13/17 08:00 90 08/13/17 08:00 99.3 08/13/17 06:00 86 22 110/61 (77) 96 08/13/17 06:00 98 08/13/17 05:45 86 10 110/61 (77) 96 08/13/17 04:08 99.6 92 21 117/74 (88) 98 08/13/17 04:00 80 08/13/17 03:01 92 116/47 (70) 98 08/13/17 02:41 12 08/13/17 02:41 12 08/13/17 02:19 84 27 125/68 (87) 98 08/13/17 02:00 94 08/13/17 01:01 90 6 136/83 (100) 98 08/13/17 00:01 99.8 102 13 136/80 (98) 08/13/17 00:00 103 08/12/17 23:28 10 08/12/17 23:00 92 11 134/73 (93) 98 08/12/17 22:00 89 08/12/17 22:00 97.3 94 14 119/56 (77) 95 08/12/17 21:33 94 14 119/56 (77) 96 08/12/17 20:00 89 I/O 08/12/17 08/12/17 08/12/17 08/13/17 08/13/17 08/13/17 07:00 15:00 23:00 07:00 15:00 23:00 Intake Total 1350 ml 1000 ml 3100 ml Output Total 600 ml 2100 ml 800 ml Balance 750 ml -1100 ml 2300 ml Intake Oral 0 ml 1500 ml IV Total 1350 ml 1000 ml 1600 ml Output Urine Total 600 ml 2100 ml 800 ml # Voids 5 # Bowel Movements 0 0 Result Diagram: 08/13/17 0610 08/13/17 06 Objective Remarks GENERAL: NAD, A&Ox3, photophobia HEAD: Normocephalic. NECK: Supple, trachea midline. No lymphadenopathy. EYES: No scleral icterus. No injection or drainage. CARDIOVASCULAR: Regular rate and rhythm without murmurs, gallops, or rubs. RESPIRATORY: Breath sounds equal bilaterally. No accessory muscle use. GASTROINTESTINAL: Abdomen soft, non-tender, nondistended. MUSCULOSKELETAL: No cyanosis, or edema. SKIN: Warm and dry. NEURO: No focal neurological deficitis. A/P Problem List: (1) Fever ICD Code: R50.9 - Fever, unspecified (2) Seizure ICD Code: R56.9 - Unspecified convulsions Status: Acute (3) Sepsis ICD Code: A41.9 - Sepsis, unspecified organism Assessment and Plan 31 year old male admitted with acute seizure and evidence of sepsis. Brain surgery for meningioma in June 2017. Fevers have improved. White blood cell count increased. Continue antibiotics. Patient refuses lumbar puncture. Labs reviewed. Leukocytosis has worsened. Continue to monitor labs. Labs ordered for further monitoring. No further seizure activity. Sepsis Possible meningitis Could be viral and false positive, but suspect for bacterial infection given leukocytosis May be related to head wound Wound culture obtained Follow CBC Vancomycin Flagyl Follow cultures Seizure Continue Keppra Neurology consulted and following Keppra dosing increased EEG obtained Seizure precautions Follow in ICU History of Brain Mass Recent Brain Surgery, healing wound Possible new meningitis Scalp wound cultured Cover with vancomycin and flagyl Infectious disease physician consulted Neurosurgery consult MRI of head showed no abscess DVT Prophylaxis SCDs Avoid blood thinners given recent brain surgery Mark Holden MD Aug 13, 2017 16:54
[2017-08-13] MEDS: oxyCODONE/ACETAMINOPHEN 10 MG/325 MG TAB PO PRN (17:13)
--- NOTE | 2017-08-13 19:49 | HHI.PR ---
Subjective Remarks co stiff neck and mei Objective Vital Signs Date Time Temp Pulse Resp B/P (MAP) Pulse Ox O2 Delivery O2 Flow Rate FiO2 08/13/17 18:00 78 08/13/17 17:48 100.4 08/13/17 17:45 68 17 133/83 (100) 98 08/13/17 16:45 98.4 102 20 151/82 (105) 98 08/13/17 16:00 102 08/13/17 15:45 78 19 141/70 (93) 100 08/13/17 14:45 80 18 125/70 (88) 100 08/13/17 14:00 102 08/13/17 13:45 92 14 135/77 (96) 100 08/13/17 13:00 84 17 144/85 (104) 08/13/17 12:00 86 08/13/17 11:45 88 15 141/92 (108) 97 08/13/17 11:45 99.3 88 15 141/92 (108) 97 08/13/17 10:45 100 08/13/17 10:45 100 39 08/13/17 10:45 100 39 130/71 (90) 08/13/17 10:06 142/83 (102) 08/13/17 09:28 104 39 145/88 (107) 08/13/17 08:45 84 14 126/73 (90) 08/13/17 08:45 84 08/13/17 08:00 90 08/13/17 08:00 99.3 08/13/17 06:00 86 22 110/61 (77) 96 08/13/17 06:00 98 08/13/17 05:45 86 10 110/61 (77) 96 08/13/17 04:08 99.6 92 21 117/74 (88) 98 08/13/17 04:00 80 08/13/17 03:01 92 116/47 (70) 98 08/13/17 02:41 12 08/13/17 02:41 12 08/13/17 02:19 84 27 125/68 (87) 98 08/13/17 02:00 94 08/13/17 01:01 90 6 136/83 (100) 98 08/13/17 00:01 99.8 102 13 136/80 (98) 08/13/17 00:00 103 08/12/17 23:28 10 08/12/17 23:00 92 11 134/73 (93) 98 08/12/17 22:00 89 08/12/17 22:00 97.3 94 14 119/56 (77) 95 08/12/17 21:33 94 14 119/56 (77) 96 08/12/17 20:00 89 I/O 08/12/17 08/12/17 08/12/17 08/13/17 08/13/17 08/13/17 07:00 15:00 23:00 07:00 15:00 23:00 Intake Total 1350 ml 1000 ml 3100 ml Output Total 600 ml 2100 ml 800 ml 275 ml Balance 750 ml -1100 ml 2300 ml -275 ml Intake Oral 0 ml 1500 ml IV Total 1350 ml 1000 ml 1600 ml Output Urine Total 600 ml 2100 ml 800 ml 275 ml # Voids 5 # Bowel Movements 0 0 Result Diagram: 08/13/17 0610 08/13/17 0610 Objective Remarks awake more talkative moves all well margie he states hurts neck alert did walk to bathroom today speech nl Assessment and Plan Assessment and Plan imp need id and nusu to see pt make sure no infxt around surgery site mri looks like maybe some edema in brain around that site unclear if nl post op or not i dw dr philippe he should transfer to [facility] and call id about him tonight and have nusu see no more sz on Glenn Laurent MD Aug 13, 2017 19:49
[2017-08-13] MEDS: AZTREONAM INJ 2,000 MG in SODIUM CHLORIDE 0.9% INJ 100 ML IV SCH (21:14)
[2017-08-14] VITALS (12 sets, daily range): BP systolic 107–140; BP diastolic 74–81; PULSE 70–90; RESP 11–22; TEMP 99.1–100; O2SAT 98–100
[2017-08-14] MEDS: SODIUM CHLOR 0.9% 1000 ML INJ 1,000 ML IV SCH ×2 (03:37→19:39)
[2017-08-14] MEDS: metroNIDAZOLE 500 MG INJ 100 ML IV SCH ×2 (03:37→10:00)
[2017-08-14] MEDS: MORPHINE SULFATE 2 MG/ML INJ IV PUSH PRN ×6 (03:38→23:37)
[2017-08-14] MEDS: AZTREONAM INJ 2,000 MG in SODIUM CHLORIDE 0.9% INJ 100 ML IV SCH ×2 (04:00→13:00)
[2017-08-14] MEDS: CHLORHEXIDINE GLUCONATE 2 % 1 PACK (2 CLOTHS)(taper/protocol) TOPICAL SCH ×2 (04:00→23:58)
[2017-08-14] MEDS: oxyCODONE/ACETAMINOPHEN 10 MG/325 MG TAB PO PRN ×4 (06:42→23:38)
[2017-08-14] MEDS: SODIUM CHLORIDE 0.9% FLUSH 10 ML FLUSH IV FLUSH SCH ×2 (08:56→20:04)
--- NOTE | 2017-08-14 10:20 | HHI.PR ---
Subjective Remarks co stiff neck and mei Objective Vital Signs Date Time Temp Pulse Resp B/P (MAP) Pulse Ox O2 Delivery O2 Flow Rate FiO2 08/14/17 08:00 99.4 77 15 107/ 99 08/14/17 06:00 84 08/14/17 06:00 84 08/14/17 05:00 79 14 134/81 (98) 99 08/14/17 04:00 99.1 76 11 135/78 (97) 100 08/14/17 04:00 76 08/14/17 03:12 90 08/14/17 03:00 99.1 82 13 134/81 (98) 98 08/14/17 01:00 99.9 85 20 140/76 (97) 99 08/14/17 00:01 100.0 84 16 140/80 (100) 99 08/14/17 00:00 70 08/13/17 23:01 70 16 148/83 (104) 99 08/13/17 22:36 14 08/13/17 22:00 99.0 80 14 154/78 (103) 88 08/13/17 22:00 86 08/13/17 21:01 90 16 143/75 (97) 98 08/13/17 20:01 100.9 70 14 128/66 (86) 100 08/13/17 20:00 83 08/13/17 19:58 80 15 124/69 (87) 100 08/13/17 19:00 14 08/13/17 18:00 78 08/13/17 17:48 100.4 08/13/17 17:45 68 17 133/83 (100) 98 08/13/17 16:45 98.4 102 20 151/82 (105) 98 08/13/17 16:00 102 08/13/17 15:45 78 19 141/70 (93) 100 08/13/17 14:45 80 18 125/70 (88) 100 08/13/17 14:00 102 08/13/17 13:45 92 14 135/77 (96) 100 08/13/17 13:00 84 17 144/85 (104) 08/13/17 12:00 86 08/13/17 11:45 88 15 141/92 (108) 97 08/13/17 11:45 99.3 88 15 141/92 (108) 97 08/13/17 10:45 100 08/13/17 10:45 100 39 08/13/17 10:45 100 39 130/71 (90) I/O 08/13/17 08/13/17 08/13/17 08/14/17 08/14/17 08/14/17 07:00 15:00 23:00 07:00 15:00 23:00 Intake Total 3100 ml 100 ml 1700 ml Output Total 800 ml 275 ml 2300 ml Balance 2300 ml -175 ml -600 ml Intake Oral 1500 ml 840 ml IV Total 1600 ml 100 ml 860 ml Output Urine Total 800 ml 275 ml 2300 ml # Bowel Movements 0 Result Diagram: 08/13/17 0610 08/13/17 0610 Objective Remarks alert awake speech nl still mei Assessment and Plan Assessment and Plan imp need id and nusu to see pt make sure no infxt around surgery site mri looks like maybe some edema in brain around that site unclear if nl post op or not i anuradha philippe he should transfer to [facility] and call id about him tonight and have nusu see no more sz on keppra 08/14/17 on abt and keppra await nusu and id input make sure no hand tennis ball coverer infxt and explain mri changes ? edema Glenn Richmond MD Aug 14, 2017 10:20
[2017-08-14] MEDS ORDERED: VANCOMYCIN TROUGH ONE (11:45)
[2017-08-14 11:57] LABS: AUTOMATED NEUTROPHIL # 11.5 TH/MM3 (1.8-7.7); BASOPHIL % 0.3 % (0.0-2.0); EOSINOPHIL % 0.3 % (0.0-4.0); HEMATOCRIT 30.7 % (39.0-51.0); LYMPH % 10.9 % (9.0-44.0); LYMPHOCYTE # 1.6 TH/MM3 (1.0-4.8); MEAN CELL VOLUME 77.5 FL (80.0-100.0); MEAN CORPUSCULAR HEMOGLOBIN 25.3 PG (27.0-34.0); MEAN CORPUSCULAR HGB CONC 32.6 % (32.0-36.0); MEAN PLATELET VOLUME 9.2 FL (7.0-11.0); MONO % 10.1 % (0.0-8.0); MONOCYTE # 1.5 TH/MM3 (0-0.9); NEUT % 78.4 % (16.0-70.0); PLATELET COUNT 254 TH/MM3 (150-450); RED BLOOD COUNT 3.95 MIL/MM3 (4.50-5.90); RED CELL DISTRIBUTION WIDTH 18.2 % (11.6-17.2); WHITE BLOOD COUNT 14.7 TH/MM3 (4.0-11.0)
[2017-08-14 12:23] LABS: BICARBONATE 26.1 MEQ/L (21.0-32.0); CALCIUM 8.5 MG/DL (8.5-10.1); CREATININE 0.8 MG/DL (0.60-1.30)
[2017-08-14 12:25] LABS: VANCOMYCIN TROUGH 3.5 MCG/ML (5.0-10.0)
[2017-08-14] MEDS: levETIRAcetam INJ 1,500 MG in SODIUM CHLORIDE 0.9% INJ 100 ML IV SCH ×2 (12:58→23:37)
--- NOTE | 2017-08-14 13:33 | HHI.PR ---
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) he denies any recent fever, URI symptoms right upper tooth upper molar rotten "always had bad teeth" but denies any dental pain denies alcohol use and substance abuse- but when told about + cocaine in urine- "I just dabble here and there" now complains of headaches and neck pain fever while here denies any nausea or vomiting complaining that pain meds is not enough no seizure since admission Objective Vitals Vital Signs Date Time Temp Pulse Resp B/P (MAP) Pulse Ox O2 Delivery O2 Flow Rate FiO2 08/14/17 12:00 99.7 76 18 128/74 (92) 100 08/14/17 08:00 99.4 77 15 107/ 99 08/14/17 06:00 84 08/14/17 06:00 84 08/14/17 05:00 79 14 134/81 (98) 99 08/14/17 04:00 99.1 76 11 135/78 (97) 100 08/14/17 04:00 76 08/14/17 03:12 90 08/14/17 03:00 99.1 82 13 134/81 (98) 98 08/14/17 01:00 99.9 85 20 140/76 (97) 99 08/14/17 00:01 100.0 84 16 140/80 (100) 99 08/14/17 00:00 70 08/13/17 23:01 70 16 148/83 (104) 99 08/13/17 22:36 14 08/13/17 22:00 99.0 80 14 154/78 (103) 88 08/13/17 22:00 86 08/13/17 21:01 90 16 143/75 (97) 98 08/13/17 20:01 100.9 70 14 128/66 (86) 100 08/13/17 20:00 83 08/13/17 19:58 80 15 124/69 (87) 100 08/13/17 19:00 14 08/13/17 18:00 78 08/13/17 17:48 100.4 08/13/17 17:45 68 17 133/83 (100) 98 08/13/17 16:45 98.4 102 20 151/82 (105) 98 08/13/17 16:00 102 08/13/17 15:45 78 19 141/70 (93) 100 08/13/17 14:45 80 18 125/70 (88) 100 08/13/17 14:00 102 08/13/17 13:45 92 14 135/77 (96) 100 I/O 08/13/17 08/13/17 08/13/17 08/14/17 08/14/17 08/14/17 07:00 15:00 23:00 07:00 15:00 23:00 Intake Total 3100 ml 100 ml 1700 ml Output Total 800 ml 275 ml 2300 ml Balance 2300 ml -175 ml -600 ml Intake Oral 1500 ml 840 ml IV Total 1600 ml 100 ml 860 ml Output Urine Total 800 ml 275 ml 2300 ml # Bowel Movements 0 Result Diagram: 08/14/17 1105 08/14/17 1140 Imaging Last Impressions Brain MRI 08/12/17 1751 Signed Impressions: Service Date/Time: Saturday, August 12, 2017 20:15 - CONCLUSION: There is linear chronic blood products about the posterior aspect of the surgical cavity at meningioma resection site. No abnormal areas of enhancement seen. Pasha Tyson MD Head CT 08/12/17 0000 Signed Impressions: Service Date/Time: Saturday, August 12, 2017 11:37 - CONCLUSION: Table CT scan of the head following the large hemorrhage right parietal occipital region. Connor Herbert MD FACR Objective Remarks awake and alert, oriented x 3, speech clear head- post op long surgical wound depression of the bone- along the suture site - dry- well healed , some flaking face- flushed anicteric pupils equal and reactive oral mucosa- moist, right upper tooth- decayed neck stiff lungs- no rales regular rhythm abdomen soft, nontender no CVA tenderness extremities no edema, negative SLR grossly no sensory deficits moves all extremities spontaneously A/P Problem List: (1) Mass, brain ICD Code: G93.9 - Disorder of brain, unspecified Status: Acute (2) Seizure ICD Code: R56.9 - Unspecified convulsions Status: Acute Assessment and Plan 31 years old right handed male 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 supposed to start radiation tx- this 08/18 history of seizure disorder on Keppra as OP history of chronic back pain - on Percocet- ff by a painter bottom in [place]- states he is on dilaudid 4 mg po q 6 and Ativan admitted 08/12 for SZ with T of 102 on admission and leukocytosis Sepsis Possible meningitis Leukocytosis - still with persistent headache and neck pain- - Could be viral and false positive, but suspect for bacterial infection given leukocytosis - post op surgical scalp wound- not impressive Wound culture obtained- group B Follow CBC- trending down currently on Vancomycin + Flagyl + Azactam- - will defer to ID service ID service consulted d/w him again- refuse lumbar puncture- "too painful" Neurology ff- for EEG MRI reviewed post op changes Seizure- non compliance Continue Keppra- 1500 mg IV q 12 Neurology following EEG ordered Seizure precautions no further episodes since admission History of Brain Mass Recent Brain Surgery 06/2017- healing wound Possible new meningitis Scalp wound cultured- group B on vancomycin and Flagyl Infectious disease physician consulted Neurosurgery consulted MRI of head showed no abscess Poor denture- rotten tooth -on above antibiotics - oral hygiene- - OP ff up with a dentist DVT Prophylaxis SCDs Avoid blood thinners given recent brain surgery Chronic back pain-stable. on chronic pain meds- prn pain meds per patient on Dilaudid 4 mg po q 6 prn Cocaine +. counselled - manifesting drug seeking behavior - continue on prn Morphine and Percocet d/w staff nurse Rona Mix MD Aug 14, 2017 13:33
[2017-08-14] MEDS ORDERED: VANCOMYCIN 1,500 MG/NS 500 ML IV SCH ×2 (14:00)
[2017-08-14] MEDS ORDERED: POTASSIUM CHLORIDE 10 MEQ CONTROLLED RELEASE TAB PO ONE (14:15)
--- NOTE | 2017-08-14 15:20 | PD.CONS ---
History of Present Illness Service Infectious Disease Consult Requested By Dr Holden Reason for Consult Evaluate patient for possible meningitis Primary Care Physician No Primary Care Physician Diagnoses: History of Present Illness Patient seen and examined. Records reviewed. Patient is not very cooperative during my history taking. Patient is a 31-year-old male, who was diagnosed to have meningioma, underwent surgery June 2017. 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 Patient stated that he followed up with his neurosurgeon. He was admitted initially at [facility] after he had several episodes of seizure. He has had prior seizure and has been on Keppra. Patient apparently missed several doses of his Keppra. He presented to the hospital and since in the hospital he has had fevers, and leukocytosis. He denies any respiratory complaint. He complains of pain everywhere, including headache and neck pain. Denies any photophobia. He has not had any seizure. He had imaging studies of his brain, and he has a linear fluid density noted in the cavity were he had his meningioma was resected. His voiding okay and denies any diarrhea. Patient has had blood cultures done and they are negative. LP was apparently recommended by the neurology, but the patient has been refusing lumbar puncture. He had a scalp wound that is reported as growing strep. Patient really couldn't tell me how long he's had that draining wound. Influenza testing is negative. There is also history of drug use, and history screen on admission is positive for cocaine. Patient has been transferred to the main hospital for neurosurgical evaluation. Infectious disease consultation has requested to evaluate the patient for possible meningitis. Review of Systems Constitutional: COMPLAINS OF: Fever, DENIES: Chills, Night Sweats Eyes: DENIES: Eye pain, Photosensitivity Ears, nose, mouth, throat: DENIES: Nasal discharge, Oral lesions, Throat pain, Sinus Pain Respiratory: DENIES: Cough, Sputum production, Shortness of breath Cardiovascular: DENIES: Chest pain, Palpitations, Dyspnea on Exertion Gastrointestinal: DENIES: Abdominal pain, Diarrhea, Nausea, Vomiting Genitourinary: DENIES: Hematuria, Dysuria Musculoskeletal: COMPLAINS OF: Back pain, Neck pain, DENIES: Joint pain Immunologic/allergic: DENIES: Urticaria Psychiatric: DENIES: Hallucinations Past Family Social History Allergies: Coded Allergies: penicillin G (Verified Allergy, Mild, 08/12/17) *MDRO Multi-Drug Resistant Organism (Verified Allergy, Unknown, 08/12/17) MRSA 2013 Past Medical History History of right parietal meningioma Seizure disorder Past Surgical History Resection of atypical meningioma June 2017 Active Ordered Medications Current Medications Medications (Trade) Dose Ordered Sig/Cliff Route Start Time Stop Time Status Last Admin (NS Flush) 2 ml UNSCH PRN IV FLUSH 08/12/17 13:15 (NS Flush) 2 ml BID IV FLUSH 08/12/17 21:00 08/13/17 21:15 (Zofran Inj) 4 mg Q6H PRN IVP 08/12/17 13:15 (Narcan Inj) 0.4 mg UNSCH PRN IV PUSH 08/12/17 13:15 (Milk Of Magnesia Liq) 30 ml Q12H PRN PO 08/12/17 13:15 Pharmacy Profile Note 0 ml @ 0 mls/hr UNSCH OTHER 08/12/17 14:00 (Ativan Inj) 2 mg Q10M PRN IV PUSH 08/12/17 13:30 Metronidazole 100 ml @ 100 mls/hr Q8H IV 08/12/17 18:00 08/14/17 10:00 Sodium Chloride 1,000 ml @ 75 mls/hr [id number] IV 08/12/17 17:51 08/14/17 03:37 Levetriacetam 1500 mg/Sodium Chloride 115 ml @ 420 mls/hr Q12H IV 08/12/17 23:00 08/14/17 12:58 Miscellaneous Information Patient in critical care unit? Ass... [id number] .XX 08/12/17 23:30 08/12/17 23:30 (Chlorhexidine 2% Cloth) 3 pack DAILY@04 TOPICAL 08/13/17 04:00 08/17/17 04:01 08/13/17 04:00 (Chlorhexidine 2% Cloth) 3 pack UNSCH PRN TOPICAL 08/12/17 23:30 08/17/17 23:27 (Percocet 5-325 Mg) 1 tab Q4H PRN PO 08/13/17 14:00 (Percocet 10-325 Mg) 1 tab Q4H PRN PO 08/13/17 14:00 08/14/17 15:03 (Morphine Inj) 2 mg Q4H PRN IV PUSH 08/13/17 15:00 08/14/17 11:51 Aztreonam 2000 mg/ Sodium Chloride 100 ml @ 200 mls/hr Q8H IV 08/13/17 20:00 08/14/17 13:00 Vancomycin HCl 1500 mg/Sodium Chloride 515 ml @ 257.5 mls/ hr Q8H IV 08/14/17 14:00 08/14/17 15:04 Miscellaneous Information SPECIFIC LAB TO BE NHI... ONCE ONCE .XX 08/15/17 13:45 08/15/17 13:46 Family History Noncontributory Social History Denies recent drug use - history of Dilaudid and cocaine abuse History of marijuana use Denies alcohol abuse Denies smoking Physical Exam Vital Signs Vital Signs Date Time Temp Pulse Resp B/P (MAP) Pulse Ox O2 Delivery O2 Flow Rate FiO2 08/14/17 12:00 99.7 76 18 128/74 (92) 100 08/14/17 08:00 99.4 77 15 107/ 99 08/14/17 06:00 84 08/14/17 06:00 84 08/14/17 05:00 79 14 134/81 (98) 99 08/14/17 04:00 99.1 76 11 135/78 (97) 100 08/14/17 04:00 76 08/14/17 03:12 90 08/14/17 03:00 99.1 82 13 134/81 (98) 98 08/14/17 01:00 99.9 85 20 140/76 (97) 99 08/14/17 00:01 100.0 84 16 140/80 (100) 99 08/14/17 00:00 70 08/13/17 23:01 70 16 148/83 (104) 99 08/13/17 22:36 14 08/13/17 22:00 99.0 80 14 154/78 (103) 88 08/13/17 22:00 86 08/13/17 21:01 90 16 143/75 (97) 98 08/13/17 20:01 100.9 70 14 128/66 (86) 100 08/13/17 20:00 83 08/13/17 19:58 80 15 124/69 (87) 100 08/13/17 19:00 14 08/13/17 18:00 78 08/13/17 17:48 100.4 08/13/17 17:45 68 17 133/83 (100) 98 08/13/17 16:45 98.4 102 20 151/82 (105) 98 08/13/17 16:00 102 08/13/17 15:45 78 19 141/70 (93) 100 Physical Exam GENERAL: Patient is a well-nourished, well-developed male, awake and alert, not in respiratory distress. SKIN: Warm and dry. No generalized rash, no ecchymoses and no evidence of embolic lesions. HEAD: Normocephalic. No temporal wasting, or tenderness. 2 areas of top of his head with crusted areas about 1 inch long on one, and shorter on the other. Rest of incision well healed EYES: [place] conjunctiva. No petechia or hemorrhage. Pupils equal, round and reactive to light. Extraocular movements full and intact. No scleral icterus. No injection or drainage. EARS, NOSE AND THROAT: Nose without bleeding or purulent nasal discharge. No sinus tenderness. Mucous membranes pink and moist. No oral lesions noted. No exudate. No oral thrush. NECK: Trachea midline. Supple and not tender, no meningeal signs. No nuchal rigidity CARDIOVASCULAR: Regular rate and rhythm. No murmurs, rubs or gallops heard RESPIRATORY: Clear to auscultation. Breath sounds equal bilaterally. No rales , wheezing or rhonchi ABDOMEN: Soft, flat, non-tender, nondistended. Bowel sounds present and normoactive. No guarding. No rebound. No organomegaly. EXTREMITIES: No clubbing, cyanosis, or edema. No joint effusion, has good ROM. No calf tenderness. Well perfused and warm. NEUROLOGICAL: Awake and alert. Cranial nerves grossly intact. Motor grossly within normal limits. PSYCHIATRIC: Normal affect, anxious and wants his pain meds LINE: No evidence of infection Laboratory Laboratory Tests Test 08/14/17 11:05 08/14/17 11:40 White Blood Count 14.7 Red Blood Count 3.95 Hemoglobin 10.0 Hematocrit 30.7 Mean Corpuscular Volume 77.5 Mean Corpuscular Hemoglobin 25.3 Mean Corpuscular Hemoglobin Concent 32.6 Red Cell Distribution Width 18.2 Platelet Count 254 Mean Platelet Volume 9.2 Neutrophils (%) (Auto) 78.4 Lymphocytes (%) (Auto) 10.9 Monocytes (%) (Auto) 10.1 Eosinophils (%) (Auto) 0.3 Basophils (%) (Auto) 0.3 Neutrophils # (Auto) 11.5 Lymphocytes # (Auto) 1.6 Monocytes # (Auto) 1.5 Eosinophils # (Auto) 0.0 Basophils # (Auto) 0.0 CBC Comment DIFF FINAL Differential Comment Blood Urea Nitrogen 4 Creatinine 0.80 Random Glucose 100 Calcium Level 8.5 Sodium Level 140 Potassium Level 3.5 Chloride Level 108 Carbon Dioxide Level 26.1 Anion Gap 6 Estimat Glomerular Filtration Rate 114 Vancomycin Level Trough 3.5 Date/Time Source Procedure Growth Status 08/12/17 11:00 Blood Peripheral Aerobic Blood Culture - Preliminary NO GROWTH IN 2 DAYS Resulted 08/12/17 11:00 Blood Peripheral Anaerobic Blood Culture - Preliminary NO GROWTH IN 2 DAYS Resulted 08/12/17 13:10 Nasal Aspirate Influenza Types A,B Antigen (HELLEN) - Final NEGATIVE FOR FLU A AND B ANTIGEN.... Complete 08/12/17 18:00 Wound Scalp Gram Stain - Final Resulted 08/12/17 18:00 Wound Culture - Preliminary Group A Beta Strep Resulted Result Diagram: 08/14/17 1105 08/14/17 1140 Imaging Last Impressions Brain MRI 08/12/17 1751 Signed Impressions: Service Date/Time: Saturday, August 12, 2017 20:15 - CONCLUSION: There is linear chronic blood products about the posterior aspect of the surgical cavity at meningioma resection site. No abnormal areas of enhancement seen. Pasha Tyson MD Head CT 08/12/17 0000 Signed Impressions: Service Date/Time: Saturday, August 12, 2017 11:37 - CONCLUSION: Table CT scan of the head following the large hemorrhage right parietal occipital region. Connor Herbert MD FACR Assessment and Plan Assessment and Plan IMPRESSION Febrile illness, etiology? - clinically does not have S/Sxs of meningitis - UA ok - no respiratory symptoms - influenza negative - ?other viral S/P resection atypical meningioma Jun 2017 - has post-op Fluid in tumor cavity, ?hematoma Known substance abuse, likely pain med seeking behavior Prob with superficial wound infection, 2 areas of previous incision that is not healed yet - C/S GAS RECOMMENDATION Rocephin for GAS in wound C/S Repeat 2 BC CXR ?Sample fluid in tumor cavity Stop Vanco and Azactam Follow C/S and CBC Monitor progress I will follow along with you Thank you for this consultation Discussed Condition With Margarita/W Itzel Galeana MD Aug 14, 2017 15:20
--- NOTE | 2017-08-14 16:20 | ECHRPT ---
Indication: vegetation CONCLUSIONS The left ventricular systolic function is normal with an estimated ejection fraction in the range of 55-60%. The right ventricular size is normal. Trace mitral valve regurgitation. There is trace tricuspid valve regurgitation. No evidence of endocarditis by TTE BP: 117 / 74 HR: 91 Rhythm: Sinus Technical Quality:Good FINDINGS LEFT VENTRICLE The left ventricular systolic function is normal with an estimated ejection fraction in the range of 55-60%. RIGHT VENTRICLE The right ventricular size is normal. LEFT ATRIUM The left atrial size is normal. RIGHT ATRIUM The right atrial size is normal. MITRAL VALVE Trace mitral valve regurgitation. AORTIC VALVE Trileaflet aortic valve. No aortic valve stenosis or regurgitation. TRICUSPID VALVE There is trace tricuspid valve regurgitation. Nestor Lemos MD (Electronically Signed) Final Date:14 August 2017 16:19
--- NOTE | 2017-08-14 19:04 | HHI.NSPN ---
Note Status Status: Progress Note Interval History Interval History 31-year-old male, who was diagnosed to have meningioma, underwent surgery June 2017. 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 Patient stated that he followed up with his neurosurgeon. He was admitted initially at [place] after he had several episodes of seizure. He has had prior seizure and has been on Keppra. Patient apparently missed several doses of his Keppra. He presented to the hospital and since in the hospital he has had fevers, and leukocytosis. He denies any respiratory complaint. He complains of pain everywhere, including headache and neck pain. Denies any photophobia. He has not had any seizure. He had imaging studies of his brain, and he has a linear fluid density noted in the cavity were he had his meningioma was resected. His voiding okay and denies any diarrhea. Patient has had blood cultures done and they are negative. LP was apparently recommended by the neurology, but the patient has been refusing lumbar puncture. He had a scalp wound that is reported as growing strep. Patient really couldn't tell me how long he's had that draining wound. Influenza testing is negative. There is also history of drug use, and history screen on admission is positive for cocaine. He has been transferred to the main hospital for neurosurgical evaluation. Labs, Micro, & Vital Signs Results Date Time Temp Pulse Resp B/P (MAP) Pulse Ox O2 Delivery O2 Flow Rate FiO2 08/14/17 16:00 99.4 72 20 100 08/14/17 12:00 99.7 76 18 128/74 (92) 100 08/14/17 08:00 99.4 77 15 107/ 99 08/14/17 06:00 84 08/14/17 06:00 84 08/14/17 05:00 79 14 134/81 (98) 99 08/14/17 04:00 99.1 76 11 135/78 (97) 100 08/14/17 04:00 76 08/14/17 03:12 90 08/14/17 03:00 99.1 82 13 134/81 (98) 98 08/14/17 01:00 99.9 85 20 140/76 (97) 99 08/14/17 00:01 100.0 84 16 140/80 (100) 99 08/14/17 00:00 70 08/13/17 23:01 70 16 148/83 (104) 99 08/13/17 22:36 14 08/13/17 22:00 99.0 80 14 154/78 (103) 88 08/13/17 22:00 86 08/13/17 21:01 90 16 143/75 (97) 98 08/13/17 20:01 100.9 70 14 128/66 (86) 100 08/13/17 20:00 83 08/13/17 19:58 80 15 124/69 (87) 100 08/15/17 07:00 Intake Total 2100 ml Output Total 2700 ml Balance -600 ml Constitutional Vital Signs Date Time Temp Pulse Resp B/P (MAP) Pulse Ox O2 Delivery O2 Flow Rate FiO2 08/14/17 16:00 99.4 72 20 100 08/14/17 12:00 99.7 76 18 128/74 (92) 100 08/14/17 08:00 99.4 77 15 107/ 99 08/14/17 06:00 84 08/14/17 06:00 84 08/14/17 05:00 79 14 134/81 (98) 99 08/14/17 04:00 99.1 76 11 135/78 (97) 100 08/14/17 04:00 76 08/14/17 03:12 90 08/14/17 03:00 99.1 82 13 134/81 (98) 98 08/14/17 01:00 99.9 85 20 140/76 (97) 99 08/14/17 00:01 100.0 84 16 140/80 (100) 99 08/14/17 00:00 70 08/13/17 23:01 70 16 148/83 (104) 99 08/13/17 22:36 14 08/13/17 22:00 99.0 80 14 154/78 (103) 88 08/13/17 22:00 86 08/13/17 21:01 90 16 143/75 (97) 98 08/13/17 20:01 100.9 70 14 128/66 (86) 100 08/13/17 20:00 83 08/13/17 19:58 80 15 124/69 (87) 100 08/15/17 07:00 Intake Total 2100 ml Output Total 2700 ml Balance -600 ml Physical Exam GENERAL: Patient is a well-nourished, well-developed male, awake and alert HEAD: Normocephalic. No temporal wasting, or tenderness. 2 areas of top of his head with scab and crusted areas about 1 inch long on one, and shorter on the other. Rest of incision well healed EARS, NOSE AND THROAT: Nose without bleeding or purulent nasal discharge. No sinus tenderness. Mucous membranes pink and moist. No oral lesions noted. No exudate. No oral thrush. NECK: Trachea midline. Supple and not tender, no meningeal signs. No nuchal rigidity CARDIOVASCULAR: Regular rate and rhythm. No murmurs, rubs or gallops heard RESPIRATORY: Clear to auscultation. Breath sounds equal bilaterally. No rales , wheezing or rhonchi ABDOMEN: Soft, flat, non-tender, nondistended. Bowel sounds present and normoactive. No guarding. No rebound. No organomegaly. EXTREMITIES: No clubbing, cyanosis, or edema. No joint effusion, has good ROM. No calf tenderness. Well perfused and warm. NEUROLOGICAL: Awake and alert. Cranial nerves grossly intact. Motor grossly within normal limits. PSYCHIATRIC: Normal affect, anxious and wants his pain meds Medications Current Medications Current Medications Levetriacetam 100 ml @ 400 mls/hr BOLUS ONCE IV Last administered on 12:01; Start 08/12/17 at 11:30; Stop 08/12/17 at 11:44; Status DC Sodium Chloride 1,000 ml @ 999 mls/hr BOLUS ONCE IV Last administered on 12:01; Start 08/12/17 at 11:30; Stop 08/12/17 at 12:30; Status DC Acetaminophen (Tylenol) 1,000 mg ONCE ONCE PO Last administered on 08/12/17 12 :26; Start 08/12/17 at 12:30; Stop 08/12/17 at 12:31; Status DC Vancomycin HCl 1100 mg/Sodium Chloride 261 ml @ 250 mls/hr ONCE ONCE IV Last administered on 08/12/17 13:22; Start 08/12/17 at 12:45; Stop 08/12/17 at 13:49; Status DC Moxifloxacin HCl 250 ml @ 250 mls/hr ONCE ONCE IV ; Start 08/12/17 at 12:45; Stop 08/12/17 at 13:44; Status DC Potassium Chloride (KCl) 40 meq ONCE ONCE PO Last administered on 08/12/17at 12: 59; Start 08/12/17 at 12:45; Stop 08/12/17 at 12:46; Status DC Sodium Chloride 1,000 ml @ 999 mls/hr BOLUS ONCE IV Last administered on at 13:00; Start 08/12/17 at 13:00; Stop 08/12/17 at 14:00; Status DC Sodium Chloride 1,000 ml @ 100 mls/hr Q10H IV Last administered on 08/13/17at 19:13; Start 08/12/17 at 13:13; Stop 08/14/17 at 03:25; Status DC Sodium Chloride (NS Flush) 2 ml UNSCH PRN IV FLUSH FLUSH AFTER USING IV ACCESS ; Start 08/12/17 at 13:15; Stop 08/15/17 at 13:04; Status DC Sodium Chloride (NS Flush) 2 ml BID IV FLUSH Last administered on 08/15/17at 09: 00; Start 08/12/17 at 21:00; Stop 08/15/17 at 13:04; Status DC Ondansetron HCl (Zofran Inj) 4 mg Q6H PRN IVP NAUSEA OR VOMITING; Start at 13:15; Stop 08/15/17 at 13:04; Status DC Morphine Sulfate (Morphine Inj) 2 mg Q3H PRN IV PUSH Pain 3-5; if unable to take PO Last administered on 08/12/17at 23:23; Start 08/12/17 at 13:15; Stop at 13:56; Status DC Morphine Sulfate (Morphine Inj) 4 mg Q3H PRN IV PUSH Pain 6-10;if unable to take PO Last administered on 08/13/17at 10:18; Start 08/12/17 at 13:15; Stop 08/13 at 13:56; Status DC Naloxone HCl (Narcan Inj) 0.4 mg UNSCH PRN IV PUSH SEE LABEL COMMENTS; Start at 13:15; Stop 08/15/17 at 13:04; Status DC Magnesium Hydroxide (Milk Of Magnesia Liq) 30 ml Q12H PRN PO Mild constipation ; Start 08/12/17 at 13:15; Stop 08/15/17 at 13:04; Status DC Pharmacy Profile Note 0 ml @ 0 mls/hr UNSCH OTHER ; Start 08/12/17 at 14:00; Stop 08/14/17 at 15:21; Status DC Vancomycin HCl 1000 mg/Sodium Chloride 250 ml @ 250 mls/hr Q12H IV ; Start 03/23 at 01:00; Status UNV Levetriacetam 500 mg/Sodium Chloride 105 ml @ 420 mls/hr Q12H IV ; Start at 23:00; Stop 08/12/17 at 23:00; Status DC Lorazepam (Ativan Inj) 2 mg Q10M PRN IV PUSH SEE LABEL COMMENTS; Start 08/12/17 at 13:30; Stop 08/15/17 at 13:04; Status DC Vancomycin HCl 1250 mg/Sodium Chloride 262.5 ml @ 250 mls/hr Q12H IV Last administered on 08/13/17at 23:44; Start 08/13/17 at 00:00; Stop 08/14/17 at 13:00 ; Status DC Miscellaneous Information SPECIFIC LAB TO BE DRAWN:VANCOMY... ONCE ONCE .XX Last administered on 08/14/17at 11:45; Start 08/14/17 at 11:45; Stop 08/14/17 at 11:46; Status DC Potassium Chloride (KCl) 30 meq ONCE ONCE PO Last administered on 08/12/17at 17: 50; Start 08/12/17 at 17:45; Stop 08/12/17 at 17:46; Status DC Metronidazole 100 ml @ 100 mls/hr Q8H IV Last administered on 08/14/17at 10:00 ; Start 08/12/17 at 18:00; Stop 08/14/17 at 15:21; Status DC Levetriacetam 1500 mg/Sodium Chloride 115 ml @ 420 mls/hr Q12H IV ; Start at 23:00; Stop 08/12/17 at 23:00; Status DC Sodium Chloride 1,000 ml @ 75 mls/hr [id number] IV Last administered on at 19:39; Start 08/12/17 at 17:51; Stop 08/15/17 at 13:04; Status DC Levetriacetam 1500 mg/Sodium Chloride 115 ml @ 420 mls/hr Q12H IV Last administered on 08/15/17at 11:21; Start 08/12/17 at 23:00; Stop 08/15/17 at 12:52 ; Status DC Gadodiamide (Omniscan Pf Inj) 14 ml STK-MED ONCE IVCONTRAST Last administered on 08/12/17at 20:15; Start 08/12/17 at 20:15; Stop 08/12/17 at 20:16; Status DC Miscellaneous Information Patient in critical care unit? Ass... [id number] .XX Last administered on 08/12/17at 23:30; Start 08/12/17 at 23:30; Stop 08/15/17 at 13 :04; Status DC Chlorhexidine Gluconate (Chlorhexidine 2% Cloth) 3 pack DAILY@04 TOPICAL Last administered on 08/13/17at 04:00; Start 08/13/17 at 04:00; Stop 08/15/17 at 13:04 ; Status DC Chlorhexidine Gluconate (Chlorhexidine 2% Cloth) 3 pack UNSCH PRN TOPICAL HYGIENIC CARE; Start 08/12/17 at 23:30; Stop 08/15/17 at 13:04; Status DC Oxycodone/ Acetaminophen (Percocet 10-325 Mg) 1 tab ONCE ONCE PO Last administered on 08/13/17at 01:45; Start 08/13/17 at 01:45; Stop 08/13/17 at 01:46 ; Status DC Oxycodone/ Acetaminophen (Percocet 5-325 Mg) 1 tab Q4H PRN PO Pain 3 to 6; Start 08/13/17 at 14:00; Stop 08/15/17 at 13:04; Status DC Oxycodone/ Acetaminophen (Percocet 10-325 Mg) 1 tab Q4H PRN PO Pain 7 to 10 Last administered on 08/15/17at 11:34; Start 08/13/17 at 14:00; Stop 08/15/17 at 13:04; Status DC Morphine Sulfate (Morphine Inj) 2 mg Q4H PRN IV PUSH Breakthrough Pain Last administered on 08/15/17at 11:34; Start 08/13/17 at 15:00; Stop 08/15/17 at 12:42 ; Status DC Aztreonam 2000 mg/ Sodium Chloride 100 ml @ 200 mls/hr Q8H IV Last administered on 08/14/17at 13:00; Start 08/13/17 at 20:00; Stop 08/14/17 at 15:21 ; Status DC Vancomycin HCl 1500 mg/Sodium Chloride 515 ml @ 257.5 mls/ hr Q8H IV Last administered on 08/14/17at 15:04; Start 08/14/17 at 14:00; Stop 08/14/17 at 15:21 ; Status DC Miscellaneous Information SPECIFIC LAB TO BE NHI... ONCE ONCE .XX ; Start 08/15 at 13:45; Stop 08/15/17 at 13:45; Status DC Potassium Chloride (KCl) 30 meq ONCE ONCE PO Last administered on 08/14/17at 15 :04; Start 08/14/17 at 14:15; Stop 08/14/17 at 14:16; Status DC Morphine Sulfate (Morphine Inj) 0.5 mg Q4H PRN IV PUSH PAIN/SCALES 4-10; Start 05/23 at 12:30; Stop 08/15/17 at 13:04; Status DC Ceftriaxone Sodium 1000 mg/ Sodium Chloride 100 ml @ 200 mls/hr Q24H IV ; Start 08/15/17 at 13:00; Stop 08/15/17 at 13:04; Status DC Levetriacetam (Keppra) 1,500 mg Q12HR PO ; Start 08/15/17 at 21:00; Stop at 21:00; Status DC Attending Statement His incision does not appears infected. I reviewed [facility] radiological studies Brain MRI 08/12/17 1751 Signed Impressions: Service Date/Time: Saturday, August 12, 2017 20:15 - CONCLUSION: There is linear chronic blood products about the posterior aspect of the surgical cavity at meningioma resection site. No abnormal areas of enhancement seen. Pasha Tyson MD Head CT 08/12/17 0000 Signed Impressions: Service Date/Time: Saturday, August 12, 2017 11:37 - CONCLUSION: Table CT scan of the head following the large hemorrhage right parietal occipital region. Connor Herbert MD FACR Febrile illness, etiology? Clinically does not have S/Sxs of meningitis S/P resection atypical meningioma Jun 2017 No mevidence of cerebritis or edema, no abnormal anhancement Expected post-op Fluid in tumor cavity, ?hematoma Known substance abuse Possible superficial wound infection, 2 areas of previous incision not healed yet Continue Rocephin No surgical indication at this point Protonix for stress ulcer prophylaxis Continue Raghav fleming and SCD's for DVT prophylaxis Wu Gant MD Aug 14, 2017 19:04
[2017-08-15] VITALS: BP 115/76; PULSE 50; RESP 16; TEMP 99.5; O2SAT 99
[2017-08-15] MEDS: oxyCODONE/ACETAMINOPHEN 10 MG/325 MG TAB PO PRN ×3 (03:33→11:34)
[2017-08-15] MEDS: MORPHINE SULFATE 2 MG/ML INJ IV PUSH PRN ×3 (03:33→11:34)
[2017-08-15 04:00] VITALS: BP 123/81; PULSE 55; RESP 16; TEMP 99.5; O2SAT 98
[2017-08-15 04:40] LABS: AUTOMATED NEUTROPHIL # 6.6 TH/MM3 (1.8-7.7); BASOPHIL % 0.3 % (0.0-2.0); EOSINOPHIL # 0.1 TH/MM3 (0-0.4); EOSINOPHIL % 1.3 % (0.0-4.0); HEMOGLOBIN 10.1 GM/DL (13.0-17.0); LYMPH % 19.4 % (9.0-44.0); LYMPHOCYTE # 1.8 TH/MM3 (1.0-4.8); MEAN CELL VOLUME 78.4 FL (80.0-100.0); MEAN CORPUSCULAR HEMOGLOBIN 25.6 PG (27.0-34.0); MEAN CORPUSCULAR HGB CONC 32.6 % (32.0-36.0); MEAN PLATELET VOLUME 8.5 FL (7.0-11.0); MONO % 9.1 % (0.0-8.0); MONOCYTE # 0.9 TH/MM3 (0-0.9); NEUT % 69.9 % (16.0-70.0); PLATELET COUNT 272 TH/MM3 (150-450); RED BLOOD COUNT 3.95 MIL/MM3 (4.50-5.90); RED CELL DISTRIBUTION WIDTH 17.7 % (11.6-17.2); WHITE BLOOD COUNT 9.5 TH/MM3 (4.0-11.0)
[2017-08-15 05:02] LABS: ALBUMIN 2.6 GM/DL (3.4-5.0); ALT (GPT) 35 U/L (12-78); AST (GOT) 13 U/L (15-37); BICARBONATE 28.3 MEQ/L (21.0-32.0); BLOOD UREA NITROGEN 4 MG/DL (7-18); C-REACTIVE PROTEIN 4.26 MG/DL (0.00-0.30); CALCIUM 8.3 MG/DL (8.5-10.1); CHLORIDE 107 MEQ/L (98-107); CREATININE 0.77 MG/DL (0.60-1.30); GLOMERULAR FILTRATION RATE 119 ML/MIN (>89); GLUCOSE,RANDOM 104 MG/DL (74-106); SODIUM (NA) 140 MEQ/L (136-145)
[2017-08-15 05:04] LABS: ALKALINE PHOSPHATASE 66 U/L (45-117); TOTAL BILIRUBIN ADULT 0.2 MG/DL (0.2-1.0); TOTAL PROTEIN 5.8 GM/DL (6.4-8.2)
--- NOTE | 2017-08-15 07:25 | HHI.PR ---
Subjective Remarks co stiff neck and mei still Objective Vital Signs Date Time Temp Pulse Resp B/P (MAP) Pulse Ox O2 Delivery O2 Flow Rate FiO2 08/15/17 04:00 55 08/15/17 04:00 99.5 55 16 123/81 (95) 98 08/15/17 00:00 99.5 50 16 115/76 (89) 99 08/15/17 00:00 50 08/14/17 20:00 99.5 82 22 127/75 (92) 100 08/14/17 20:00 82 08/14/17 16:00 99.4 72 20 100 08/14/17 12:00 99.7 76 18 128/74 (92) 100 08/14/17 08:00 99.4 77 15 107/ 99 I/O 08/14/17 08/14/17 08/14/17 08/15/17 08/15/17 08/15/17 07:00 15:00 23:00 07:00 15:00 23:00 Intake Total 1700 ml 2100 ml Output Total 2300 ml 3600 ml Balance -600 ml -1500 ml Intake Oral 840 ml 2100 ml IV Total 860 ml Output Urine Total 2300 ml 3600 ml # Voids 3 Result Diagram: 08/15/17 0400 08/15/17 0400 Objective Remarks alert awake speech nl no change voice strong moves around bed well still mei Assessment and Plan Assessment and Plan imp need id and nusu to see pt make sure no infxt around surgery site mri looks like maybe some edema in brain around that site unclear if nl post op or not i anuradha philippe he should transfer to main hospital and call id about him tonight and have nusu see no more sz on keppra 08/14/17 on abt and keppra await nusu and id input make sure no service control operator infxt and explain mri changes ? edema 08/15/17 await nusu input stable neuro Glenn Richmond MD Aug 15, 2017 07:25
[2017-08-15 08:00] VITALS: PULSE 56
--- NOTE | 2017-08-15 08:27 | MG ---
cc: Glenn Richmond MD Awake, drowsy EEG. Hyperventilation not performed. History of right parietal meningioma removal. His hand was on the left side of head. I Tried to keep him from doing that. MEDICATIONS Rina Valencia. Appears to have sleep spindles which are synchronous and symmetric and movement artifact is seen. A 9 Hz 60 microvolts symmetric posterior rhythm is noted. I really do not see a major breech rhythm. Photic stimulation was not performed. Hyperventilation was not performed. IMPRESSION: Essentially unremarkable sleep electroencephalogram. Specifically, no right hemisphere seizure activity is noted. Glenn Richmond MD DJM/rt , 08:07 PM , 08:20 PM
[2017-08-15] MEDS: SODIUM CHLORIDE 0.9% FLUSH 10 ML FLUSH IV FLUSH SCH (09:00)
[2017-08-15] MEDS: levETIRAcetam INJ 1,500 MG in SODIUM CHLORIDE 0.9% INJ 100 ML IV SCH (11:21)
[2017-08-15] MEDS ORDERED: MORPHINE SULFATE 2 MG/ML INJ IV PUSH PRN (12:30)
--- NOTE | 2017-08-15 12:34 | HHI.PR ---
Subjective Remarks patient up and ambulating in his room no complains when I went into his room to check and discuss with him again - not in room, not in bathroom informed staff to inform security per staff - adk for pain meds round the clock reviewed notes from consultants Objective Vitals Vital Signs Date Time Temp Pulse Resp B/P (MAP) Pulse Ox O2 Delivery O2 Flow Rate FiO2 08/15/17 08:00 56 08/15/17 04:00 55 08/15/17 04:00 99.5 55 16 123/81 (95) 98 08/15/17 00:00 99.5 50 16 115/76 (89) 99 08/15/17 00:00 50 08/14/17 20:00 99.5 82 22 127/75 (92) 100 08/14/17 20:00 82 08/14/17 16:00 99.4 72 20 100 I/O 08/14/17 08/14/17 08/14/17 08/15/17 08/15/17 08/15/17 07:00 15:00 23:00 07:00 15:00 23:00 Intake Total 1700 ml 2100 ml Output Total 2300 ml 3600 ml Balance -600 ml -1500 ml Intake Oral 840 ml 2100 ml IV Total 860 ml Output Urine Total 2300 ml 3600 ml # Voids 3 Result Diagram: 08/15/17 0400 08/15/17 0400 Imaging Last Impressions Brain MRI 08/12/17 1751 Signed Impressions: Service Date/Time: Saturday, August 12, 2017 20:15 - CONCLUSION: There is linear chronic blood products about the posterior aspect of the surgical cavity at meningioma resection site. No abnormal areas of enhancement seen. Pasha Tyson MD Head CT 08/12/17 0000 Signed Impressions: Service Date/Time: Saturday, August 12, 2017 11:37 - CONCLUSION: Table CT scan of the head following the large hemorrhage right parietal occipital region. Connor Herbert MD FACR Objective Remarks awake and alert, oriented x 3, speech clear head- post op long surgical wound depression of the bone- along the suture site - dry- well healed , some flaking anicteric pupils equal and reactive oral mucosa- moist, right upper tooth- decayed neck stiff lungs- no rales regular rhythm abdomen soft, nontender no CVA tenderness extremities no edema, negative SLR grossly no sensory deficits moves all extremities spontaneously A/P Problem List: (1) Mass, brain ICD Code: G93.9 - Disorder of brain, unspecified Status: Acute (2) Seizure ICD Code: R56.9 - Unspecified convulsions Status: Acute Assessment and Plan 31 years old right handed male 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 supposed to start radiation tx- this 08/18 history of seizure disorder on Keppra as OP history of chronic back pain - on Percocet- 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 [place]- states he is on dilaudid 4 mg po q 6 and Ativan admitted 08/12 for SZ with T of 102 on admission and leukocytosis Sepsis Possible meningitis- Leukocytosis 08/14 still with headache and neck pain- - Could be viral and false positive, but suspect for bacterial infection given leukocytosis - post op surgical scalp wound- not impressive but grew group B Wound culture obtained- group B Follow CBC- trending down ID service saw patient - 08/14- DC vanco and Azactam start on rocephin 1 gm IV daily - for wound group B per ID recommendation - consult note d/w him refuse lumbar puncture- "too painful" 08/14 Neurology ff- for EEG- unremarkable on Keppra IV q 12- change to po MRI reviewed post op changes Neurosurgery ff Seizure- non compliance Continue Keppra- 1500 mg IV q 12 - Neurology following- EEG ordered Seizure precautions no further episodes since admission History of Brain Mass Recent Brain Surgery 06/2017- healing wound Possible new meningitis Scalp wound cultured- group B on vancomycin and Flagyl Infectious disease physician consulted Neurosurgery consulted MRI of head showed no abscess Poor denture- rotten tooth -on above antibiotics - oral hygiene- - OP ff up with a dentist DVT Prophylaxis SCDs Avoid blood thinners given recent brain surgery Chronic back pain-stable. on chronic pain meds- prn pain meds per patient on Dilaudid 4 mg po q 6 prn Cocaine +. counselled - manifesting drug seeking behavior - continue on prn Morphine and Percocet - decrease IV morphine dose d/w staff nurse inform security patient may have absconded Rona Mix MD Aug 15, 2017 12:34
[2017-08-15] MEDS ORDERED: cefTRIAXone INJ 1,000 MG in SODIUM CHLORIDE 0.9% INJ 100 ML IV SCH (13:00)
[2017-08-15] MEDS ORDERED: PHARMACY ORDERED LAB ONE (13:45)
--- NOTE | 2017-08-15 15:39 | HHI.NSPN ---
Note Status Status: Progress Note Interval History Interval History Mr. Dunn is a 31 year old male who underwent right parietal occipital craniotomy with resection of atypical meningioma 06/10/17. He presented to [place] 08/12 for breakthrough seizures. He reports stopping his Keppra which caused him to have a seizure. He complains of headaches. An MRI Brain w/wo contrast showed postoperative changes with no area of enhancements. A superficial wound culture positive. He is on antibiotics and ID is following. He has a history of illicit drug use and tox screen positive for cocaine. patient was seen this morning during rounds. later in the afternoon, nurse called to inform patient left secretly - security was notified. Labs, Micro, & Vital Signs Results Date Time Temp Pulse Resp B/P (MAP) Pulse Ox O2 Delivery O2 Flow Rate FiO2 08/15/17 08:00 56 08/15/17 04:00 55 08/15/17 04:00 99.5 55 16 123/81 (95) 98 08/15/17 00:00 99.5 50 16 115/76 (89) 99 08/15/17 00:00 50 08/14/17 20:00 99.5 82 22 127/75 (92) 100 08/14/17 20:00 82 08/14/17 16:00 99.4 72 20 100 Constitutional Vital Signs Date Time Temp Pulse Resp B/P (MAP) Pulse Ox O2 Delivery O2 Flow Rate FiO2 08/15/17 08:00 56 08/15/17 04:00 55 08/15/17 04:00 99.5 55 16 123/81 (95) 98 08/15/17 00:00 99.5 50 16 115/76 (89) 99 08/15/17 00:00 50 08/14/17 20:00 99.5 82 22 127/75 (92) 100 08/14/17 20:00 82 08/14/17 16:00 99.4 72 20 100 Review of Systems Constitutional: DENIES: Fever Cardiovascular: DENIES: Chest pain Gastrointestinal: DENIES: Vomiting Neurologic: COMPLAINS OF: Headache, Seizures Physical Exam Alert, conversing, NAD. Surgical wound appears to be healing well, he has white crusts noted along his incision. Small are that was noted to be wet, clear. Motor: moves all four extremities Medical Decision Making MDM Remarks 31 y/o male s/p resection of atypical meningioma Seizures superficial wound infection Plan Plan Remarks recommended cont antibiotics, dw patient to continue his seizure medications, Neurology following for management wound care was to be consulted for his scalp wound but patient left hospital, Karrie Shell Aug 15, 2017 15:39
--- NOTE | 2017-08-15 17:26 | PD.AMA ---
Against Medical Advice Note Discharge Disposition: Against Medical Advice Pt Condition on Discharge: Stable AMA Statement Patient Patrick Dunn left the hospital - absconded. NO discharge orders planned or scripts written This patient has the capacity to refuse care and understands the risks of leaving, including permanent disability and/or , and has had an opportunity to ask questions about his condition. Rona Mix MD Aug 15, 2017 17:26
[2017-08-15] MEDS ORDERED: levETIRAcetam 500 MG TAB PO SCH (21:00)
== END 2017-08-15 13:03 | disposition left against medical advice (07) | DRG 871 ==
LOC: PHED 10:57 → PHEDA 13:12 → PH3B 14:02 → PHICU 19:16 → N03A 08-14 03:14
PROVIDERS: ADMIT Internal Medicine; ATTEND Internal Medicine
DX: A41.9 Sepsis, unspecified organism (principal); G03.9 Meningitis, unspecified; T81.4XXA Infection following a procedure, initial encounter; G93.9 Disorder of brain, unspecified; R51 Headache; R00.0 Tachycardia, unspecified; B95.0 Streptococcus, group A, as the cause of diseases classified elsewhere; F19.90 Other psychoactive substance use, unspecified, uncomplicated; G40.909 Epilepsy, unspecified, not intractable, without status epilepticus; M54.2 Cervicalgia; M54.9 Dorsalgia, unspecified; G89.29 Other chronic pain; F17.210 Nicotine dependence, cigarettes, uncomplicated; K08.89 Other specified disorders of teeth and supporting structures; Z79.891 Long term (current) use of opiate analgesic; Z88.0 Allergy status to penicillin; Z86.011 Personal history of benign neoplasm of the brain; Z98.890 Other specified postprocedural states; Z91.19 Patient's noncompliance with other medical treatment and regimen; Z76.5 Malingerer [conscious simulation]
CPT/HCPCS: 70450; 70553; 80048; 80053; 80202; 80307; 81001; 82607; 83605; 83735; 84443; 85007; 85025; 85027; 85610; 85652; 85730; 86140; 86403; 86592; 87040; 87070; 87205; 87641; 87804; 93308; 95819; 96361; 96365; A9579; J1953; J2270; J3370; J7030; J7040; J7050